=== PATIENT | female | born 1960 | race Caucasian/White ===

== ENCOUNTER 2024-04-23 19:07 | Emergency (ER) | payer MEDICARE, SELFPAY ==
[2024-04-23 19:14] VITALS: BP 145/86; PULSE 87; RESP 20; TEMP 36.4; O2SAT 98; BMI 25.0
--- NOTE | 2024-04-23 19:26 | ED_ITS ---
HPI - Female Genitourinary General Chief complaint: Urogenital-Female Stated complaint: UTI/blood in the urine Time Seen by Provider: 04/23/24 20:09 Source: patient Mode of arrival: ambulatory Limitations: no limitations History of Present Illness ED Provider: Chauncey ALVARADO Narrative: Patient is a 64-year-old female presenting to the emergency department with complaint of urinary urgency, dysuria, hematuria since this morning. Also complains of right flank pain. Denies fevers. Denies nausea or vomiting. MD elicited complaint: dysuria Onset (ago): hour(s) Vaginal discharge: none Vaginal bleeding: none Urinary symptoms: Dysuria, Urgency, Hematuria and Flank Pain Exacerbating factors: urination Associated symptoms: denies other symptoms Related Data Previous Rx's ?Medication ?Instructions ?Recorded cefuroxime axetil 250 mg tablet 250 mg PO BID #14 tabs 04/23/24 phenazopyridine 100 mg tablet 100 mg PO TID PRN pain 6 doses #6 04/23/24 tabs Allergies Allergy/AdvReac Type Severity Reaction Status Date / Time Sulfa (Sulfonamide Allergy Severe ANAPHYLAXIS Unverified 04/23/24 19:15 Antibiotics) [SULFA (SULFONAMIDE ANTIBIOTICS)] sulfite [SULFITE] Allergy Severe ANAPHYLAXIS Unverified 04/23/24 19:15 Review of Systems 2 Review of Systems: As per HPI Yes all other systems are reviewed and are negative Constitutional: Constitutional: Reports as per HPI [facility] Social History Social History Alcohol intake: never Smoked in Last 30 Days: Yes Use of substances other than those prescribed or required for medical reasons: No Any prior treatment program specific to substance use: No Advance Directives: No Advance Directives Information Provided: Yes Patient : No Physical Exam 2 Vital Signs: Vital Signs: Last Vital Signs Temp 97.5 F 04/23/24 19:14 Pulse 87 04/23/24 19:14 Resp 20 04/23/24 19:14 BP 145/86 H 04/23/24 19:14 Pulse Ox 98 04/23/24 19:14 O2 Del Method Room Air 04/23/24 19:14 BMI result Body Mass Index 25.0 Vital signs have been reviewed and appear to be correct. Blood pressure normal. Heart rate normal. Respiratory rate normal. Temperature normal. Oxygen saturation normal. Const: General: cooperative, healthy appearing and no acute distress O rientation/consciousness: oriented to person, oriented to place, oriented to time and patient oriented x3 Limitations: no limitations HEENT: Head: Yes normocephalic and Yes atraumatic Ears: external ears normal General nose exam: Normal external nose present Face and sinus: Yes face symmetric Mouth: oropharynx normal and moist mucous membranes T hroat: Yes uvula midline Eyes: Pupils: Equal, round and reactive pupils present Neck: Neck: Yes normal visual inspection and Yes supple Resp: Effort & Inspection: normal respiratory effort and able to speak in complete sentences Auscultation: clear to auscultation bilaterally Cardio: Rate: regular rate Rhythm: regular rhythm Heart sounds: S1 normal heart sound present and S2 normal heart sound present GI: Palpation (GI): Soft to palpation and nontender Auscultation: n ormoactive bowel sounds : General: Yes no CVA tenderness Back/Spine/Pelvis: Back: no CVA tenderness Skin: General skin exam: elasticity normal and turgor normal Neuro: General: oriented to person, oriented to place, oriented to time, patient oriented x3, moves all extremities, no focal motor deficits and CN's II- XI intact bilaterally Cranial nerves: Yes Equal, round and reactive pupils present Cognition (Neuro): normal cognition Extrem: General: Yes full ROM, Yes no pedal edema and Yes no calf tenderness Psych: Mental Status: mental status grossly normal Affect: normal affect Thought process: Normal thought process present Course Course Course Narrative: This is a rapid medical exam performed by Kelly Grossman NP: Additional HPI, ROS, PE not included below will be deferred to primary provider. Patient is a 64-year-old female presenting to the emergency department with complaint of urinary urgency, dysuria, hematuria since this morning. Also complains of right flank pain. Denies fevers. Plan: labs, UA Medical Decision Making Medical Decision Making MDM Narrative: Patient is a 64-year-old female presenting to the emergency department with complaint of urinary urgency, dysuria, hematuria since this morning. On exam patient is awake, A+Ox3, VS WNL, afebrile, normal neurological exam without focal deficits, physical exam findings as above. Given reported symptoms and physical exam findings, initial differential includes UTI, pyelonephritis, cystitis. Labs notable for leuokocytosis, no anemia, no evidence of SHERYL. Urinalysis notable for 3+ leukocytes, positive nitrites, 3+ blood, >50 WBCs. Will treat for UTI with cefuroxime. Will also send prescription for pyridium. Follow up with PCP. Return precautions discussed. Patient verbalized understanding of and agreement with plan. Differential Diagnosis Differential Diagnoses: The differential diagnosis associated with the presentation includes As per [facility] Lab Data [facility] Lab Attestation statement: I reviewed the patient's lab results. As per [facility] 04/23/24 19:42 04/23/24 19:42 Labs: Lab Results 04/23/24 04/23/24 Range/Units 19:42 19:46 WBC 16.6 H (4.8-10.8) X10*3/uL RBC 4.59 (4.20-5.50) X10*6/uL Hgb 14.2 (12.0-16.0) g/dl Hct 42.1 (37.0-47.0) % MCV 91.7 (80.0-98.0) fL MCH 30.9 (27.0-33.0) pg MCHC 33.7 (31.0-35.0) g/dl RDW 12.9 (11.0-16.0) % Plt Count 220 (160-400) X10*3/uL MPV 11.1 (9.4-12.3) fL Immature Gran % (Auto) 0.4 (0.0-0.4) % Neut % (Auto) 76.4 H (45-73) % Lymph % (Auto) 15.1 L (20-40) % [place] % (Auto) 5.9 (2-11) % Eos % (Auto) 1.8 (0-4) % Baso % (Auto) 0.4 (0-2) % Lymph # (Auto) 2.5 (1.2-4.9) X10*3/uL [place] # (Auto) 1.0 (0.1-1.2) X10*3/uL Eos # (Auto) 0.3 (0.0-0.4) X10*3/uL Baso # (Auto) 0.1 (0.0-0.2) X10*3/uL Abs Immat Gran (auto) 0.06 H (0.00-0.03) X10*3/uL Absolute Neuts (auto) 12.7 H (2.0-8.3) x10*3/uL Absolute Nucleated RBC 0.000 (0.0-0.012) X10*3/uL Nucleated RBC % (auto) 0.0 (0.0-0.2) /100WBC Sodium 143 (135-145) mmol/L Potassium 3.8 (3.3-5.1) mmol/L Chloride 105 (96-108) mmol/L Carbon Dioxide 28 (22-29) mmol/L Anion Gap 14 (12-20) BUN 17 H (9-16) mg/dL Creatinine 0.87 (0.5-1.4) mg/dL Estim Creat Clear Calc 59.5 Estimated GFR > 60 Random Glucose 83 (60-115) mg/dL Calcium 9.1 (8.4-10.2) mg/dL Total Bilirubin 0.3 (0.0-1.0) mg/dL AST 16 (5-31) U/L ALT 22 (0-31) U/L Alkaline Phosphatase 60 (39-117) U/L Total Protein 6.7 (6.5-8.0) g/dL Albumin 4.2 (3.5-5.0) g/dL Urine Color Yellow Urine Appearance Cloudy Urine pH 6.0 (5.0-9.0) Ur Specific Lynn 1.020 (1.005-1.025) Urine Protein 100 (2+) H (Neg-Trace) mg/dL Urine Glucose (UA) Negative (Negative) mg/dL Urine Ketones Negative (Negative) mg/dL Urine Blood Large (3+) H (Negative) Urine Nitrite Positive H (Negative) Ur Leukocyte Esterase Large (3+) H (Negative) Urine RBC >20 H (0-2) /HPF Urine WBC >50 H (0-5) /HPF Ur Squamous Epith Cells 0-2 (0-2) /HPF Urine Bacteria 4+ (None Seen) Hyaline Casts 11-20 (0-2) /LPF External Record Review External record reviewed: Inpatient record, Office record and Outpatient record Prescription Management I considered prescription management with: Pain Medication and Antibiotic Discharge Plan Discharge Clinical Impression: Urinary tract infection Patient Disposition: Home, Self-Care Instructions: Urinary Tract Infection in Women (DC) Additional Instructions: You have been evaluated in the emergency department today for your urinary symptoms. Your evaluation, including urinalysis, suggests that your symptoms are due to urinary tract infection. Please take your prescribed antibiotics for the full course of medication as directed. Please follow-up with your primary care provider within 2 days. Return to the emergency department if you experience fevers 100.4? F or greater, worsening or uncontrolled pain, vomiting, flank pain, or for any other concerning symptoms. Prescriptions: New cefuroxime axetil 250 mg tablet 250 mg PO BID Qty: 14 0RF phenazopyridine 100 mg tablet 100 mg PO TID PRN (Reason: pain) Qty: 6 0RF Print Language: Turkmen
[2024-04-23 19:51] LABS: MANUAL DIFF FLAG NO
[2024-04-23 19:53] LABS: Basophils Absolute Auto 0.1 X10*3/uL (0.0-0.2); Basophils Percent Auto 0.4 % (0-2); Eosinophils Absolute Auto 0.3 X10*3/uL (0.0-0.4); Eosinophils Percent Auto 1.8 % (0-4); Hematocrit 42.1 % (37.0-47.0); Hemoglobin 14.2 g/dl (12.0-16.0); Imm Gran Abs Auto 0.06 X10*3/uL (0.00-0.03); Imm Gran Pct Auto 0.4 % (0.0-0.4); Lymphocytes Absolute Auto 2.5 X10*3/uL (1.2-4.9); Lymphocytes Percent Auto 15.1 % (20-40); Mean Corpuscular HGB Conc 33.7 g/dl (31.0-35.0); Mean Corpuscular Hemoglobin 30.9 pg (27.0-33.0); Mean Corpuscular Volume 91.7 fL (80.0-98.0); Mean Platelet Volume 11.1 fL (9.4-12.3); Monocytes Percent Auto 5.9 % (2-11); Neutrophils Absolute Auto 12.7 x10*3/uL (2.0-8.3); Neutrophils Percent Auto 76.4 % (45-73); Platelet Count 220 X10*3/uL (160-400); Red Blood Count 4.59 X10*6/uL (4.20-5.50); Red Cell Distribution Width 12.9 % (11.0-16.0); White Blood Count 16.6 X10*3/uL (4.8-10.8)
[2024-04-23 19:54] LABS: Appearance Urine Cloudy; Color Urine Yellow; Glucose Urine UA Negative (Negative); Leukocyte Esterase Urine Large (3+) (Negative); Nitrite Urine Positive (Negative); UMIC TRIGGER UACC YES; Urine Blood Large (3+) (Negative); Urine Ketones Negative (Negative); Urine Protein 100 (2+) mg/dL (Neg-Trace)
[2024-04-23 20:01] LABS: Bacteria Urine 4+ (None Seen); RBC Urine >20 /HPF (0-2); Squamous Epithelial Cell Urine 0-2 /HPF (0-2); UACC Culture Trigger YES; WBC Urine >50 /HPF (0-5)
[2024-04-23 20:05] LABS: Alanine Aminotransferase 22 U/L (0-31); Albumin Level 4.2 g/dL (3.5-5.0); Alkaline Phosphatase 60 U/L (39-117); Anion Gap 14 (12-20); Aspartate Amino Transferase 16 U/L (5-31); Bilirubin Total 0.3 mg/dL (0.0-1.0); Blood Urea Nitrogen 17 mg/dL (9-16); Calcium 9.1 mg/dL (8.4-10.2); Carbon Dioxide 28 mmol/L (22-29); Chloride 105 mmol/L (96-108); Creatinine Clr Calc Pharmacy 59.5; Estimated Glomerular Filt Rate > 60; Glucose Random 83 mg/dL (60-115); Potassium 3.8 mmol/L (3.3-5.1); Sodium 143 mmol/L (135-145); Total Protein 6.7 g/dL (6.5-8.0)
[2024-04-23 20:21] VITALS: BP 145/86; PULSE 87; RESP 20; TEMP 36.4; O2SAT 98
--- OUTSIDE RECORDS SUMMARY | 2024-04-23 20:22 | XMS_ITS | Continuity of Care Document ---
Author Organization [facility] Address [address] [place] [address]- Care Team Providers Care Blacksmith Apprentice Name Role Phone Stephen Kay MD Primary Care Physician [place] [facility] [place]): 03/01/23 - 07/11/23 [facility] [address] [place], [place] [address] Attending Physician: Stephen Kay MD Allergies, Adverse Reactions, Alerts Substance Reaction Severity Status Sulfur anaphylaxis Active Sulfite Allergy anaphylaxis Active Immunizations Given and Recorded Vaccine Date Status Refusal Reason SARS-CoV-2 (COVID-19) mRNA-1273 vaccine 02/27/21 R ecorded SARS-CoV-2 (COVID-19) mRNA-1273 vaccine 02/27/21 R ecorded SARS-CoV-2 (COVID-19) mRNA-1273 vaccine 01/28/21 R ecorded SARS-CoV-2 (COVID-19) mRNA-1273 vaccine 01/28/21 R ecorded hepatitis B adult vaccine 1 08/22/17 Recorded tetanus/diphtheria/pertussis, acel(Tdap) 2 12/27/16 Given tetanus/diphtheria/pertussis, acel(Tdap) 03/24/08 Recorded tetanus-diphtheria toxoids (Td) 11/21/14 Recorded 1Result Comment: [08/26/2017] #1[facility] 2Result Comment: [12/27/2016] given without incident.....vs Medications clobetasol 0.05% topical ointment 1 application, Topically, Every Saturday and , apply a thin film use twice weekly, # 60 Gm, 11 Refills, Acute 08/07/25 0:00:00 EST, 08/07/22 11:15:00 EST, Ointment, [facility]/pharmacy #[id number], Partial fill upon patient request if the prescription is for... Start Date: 08/07/22 Stop Date: 08/07/25 Status: Ordered clobetasol 0.05% topical ointment 1 application, Topically, Every Saturday and , apply a thin film twice weekly in morning and evening,, # 60 Gm, 11 Refills, Acute 03/25/27 0:00:00 EDT, 08/07/25 0:00:00 EST, Ointment, [facility]/pharmacy #[id number], Partial fill upon patient request if the... Start Date: 08/07/25 Stop Date: 03/25/27 Status: Ordered Flonase 50 mcg/inh nasal spray 1 sprays, Nares, Both, 2 times a day, # 16 Gm, 0 Refills, Maintenance, 08/09/22 17:35:00 EST, [place], [facility]/pharmacy #[id number], This is NOT a routine chronic medication, 1 sprays Nares, Both 2 times a day, 166.9, cm, 08/09/22 13:41:00 EST, Height, 63,... Start Date: 08/09/22 Status: Ordered ProAir HFA 90 mcg/inh inhalation aerosol with adapter 2, puffs, Inhalation, Every 6 hours, PRN, # 8.5 Gm, Refills 0, Tot. Refills 0, Maintenance, 05/30/23 14:04:00 EST, Aerosol, Route to Pharmacy Electronically, [id number], [facility]/pharmacy #[id number], 168, cm, 05/30/23 11:48:00 EST, Hei... Start Date: 05/30/23 Status: Ordered Synthroid 0.15 mg oral tablet See Instructions, 1 tablet from Saturday to Saturday and two tablets on Saturday, # 102 tablet, 4 Refills, Maintenance, 06/27/23 9:46:00 EST, [facility]/pharmacy #[id number], 168, cm, 06/25/23 10:11:00 EST, Height, 64.3, kg, 03/25/23 11:14:00 EDT, Dry Weight Start Date: 12/14/23 Status: Ordered Tylenol 325 mg oral capsule 2 capsule = 650 mg, By Mouth, Every 4 hours, PRN as needed for pain, # 50 tablet, 0 Refills, Maintenance, 08/11/21 15:51:00 EST, Capsule, [id number], Partial fill upon patient request if the prescription is for a schedule II opioid drug., 167.... Start Date: 08/11/21 Status: Ordered Problem List Condition Confirmation Course Effective Dates Status H ealth Status Informant Dense breasts Confirmed Active Diplopia Confirmed Active Urinary problem Confirmed Active Family history of ovarian cancer Confirmed Active Hx of migraines Confirmed Active Neville's thyroiditis wity mulltiple nodules Confirmed 12/26/16 Active History of uterine fibroid Confirmed Active Personal history of colonic polyps Confirmed 10/22/22 Active Hx of squamous cell carcinoma of skin Confirmed Active High cholesterol Confirmed Active Hypothyroidism Confirmed Active Vulvar lesion Confirmed Active Lichen sclerosus Confirmed Active 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 IFLND Confirmed Active Encounter for well woman exam with abnormal findings Confirmed Active Tobacco use disorder Confirmed Active Social History Social History Type Response Smoking Status 10 or more cigarette s (1/2 pack or more)/day in last 30 days entered on: 06/25/23 Sex Patient Care team information Care Team Personnel Name: Stephen Kay MD Position: S Physician - Primary Care Member Role: PCP Address: Address: [address] [place] [address] Adult & [place] [address]- Care Team Related Persons Name: QUEENIE CARRANZA Address: home [address] [place] [address] Name: TYRONE CARRANZA Address: home [address] [place] [address]
--- OUTSIDE RECORDS SUMMARY | 2024-04-23 20:22 | XMS_ITS | Continuity of Care Document ---
Author Organization [facility] Address [address] [place] [address]- Care Team Providers Care Rib Chopper Name Role Phone Stephen Kay MD Primary Care Physician [phone] [place] [facility] [place](s): 07/06/21 - 09/17/21 [facility] [address] [place] [address] Attending Physician: Lindsay Dueñas MD Admitting Physician: Lindsay Dueñas MD Allergies, Adverse Reactions, Alerts Substance Reaction [...] 08/22/17 Recorded tetanus/diphtheria/pertussis, acel(Tdap) 2 12/27/16 Given 1Result Comment: [08/26/2017] #1[facility] 2Result Comment: [12/27/2016] given without incident.....vs Medications clobetasol 0.05% topical ointment 1 application, Topically, 2 times a day, apply a thin film use twice daily x 1 month, then 3 x weekly for 1 month, then 2x weekly to continue for maintenance., # 60 Gm, 11 Refills, Acute 06/06/22 0:00:00 EST, 09/06/21 10:29:00 EST, Ointment, [facility] Start Date: 09/06/21 Stop Date: 06/06/22 Status: Ordered Engerix-B 20 mcg/mL intramuscular suspension 1 mL = 20 mcg, Intramuscular, Every 30 days, inject Day 0, 1 month, and 6 months, # 1 mL, 2 Refills, Maintenance, 07/16/17 9:33:31, Suspension Start Date: 07/16/17 Status: Ordered ibuprofen 800 mg oral tablet 800 mg, 1, tablet, By Mouth, Every 8 hours, # 40 tablet, Refills 0, Tot. Refills 0, Maintenance, 08/11/21 15:50:00 EST, Route to Pharmacy Electronically, [facility]/pharmacy #[id number], Partial fill upon patientrequest if the prescription is for a schedule II op... Start Date: 08/11/21 Status: Ordered lidocaine 2% topical gel with applicator 5 mL = 0.1 Gm, Topically, Once, Apply 30 mins prior to scheduled vulvar procedure, # 10 mL, 0 Refills, Soft Stop, 09/06/21 10:36:00 EST, Gel, [facility]/pharmacy #[id number], Partial fill upon patient request if the prescription is for a schedule II opioid drug.,... Start Date: 09/06/21 Status: Ordered Lipitor 20 mg oral tablet 1 tablet = 20 mg, By Mouth, Daily, # 30 tablet, 11 Refills, Maintenance, 05/25/21 12:08:00 EST, Tablet, [facility]/pharmacy #[id number], Partial fill upon patient request if the prescription is for a schedule II opioid drug., 168.5, cm, 05/25/21 11:36:00 EST, Height Start Date: 05/25/21 Status: Ordered Multivitamin By Mouth, Daily in AM, 0 Refills, Maintenance, 07/27/21 14:48:00 EST, Partial fill upon patient request if the prescription is for a schedule II opioid drug. Start Date: 07/27/21 Status: Ordered Synthroid 137 mcg (0.137 mg) oral tablet 1 tablet = 137 mcg, By Mouth, Daily, take an 2 tablets on Sundays; NO SUBSTITUTIONS; BRAND NAME MEDICALLY NECESSARY, # 35 each, 7 Refills, Maintenance, 07/06/21 13:28:00 EST, Tablet, [facility]/pharmacy #[id number], duplicate rx. original sent 03/09/21. remaining r... Start Date: 07/06/21 Stop Date: 03/03/22 Status: Ordered Tylenol 325 mg oral capsule 2 capsule = 650 mg, By Mouth, Every 4 hours, PRN as needed for pain, # 50 tablet, 0 Refills, Maintenance, 08/11/21 15:51:00 EST, Capsule, [id number], Partial fill upon patient request if the prescription is for a schedule II opioid drug., 167.... Start Date: 08/11/21 Status: Ordered Vitamin C By Mouth, Daily in AM, 0 Refills, Maintenance, 07/28/15 9:11:18 EST Start Date: 07/28/15 Status: Ordered Problem List Condition Effective Dates Status Health Status Inform ant Dense breasts(Confirmed) Active Urinary problem(Confirmed) Active Family history of ovarian cancer(Confirmed) Active Hx of migraines(Confirmed) Active 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 History of uterine fibroid(Confirmed) Active Hx of squamous cell carcinom a of skin(Confirmed) Active High cholesterol(Confirmed) Active Hypothyroidism(Confirmed) Active Vulvar lesion(Confirmed) Active Lichen sclerosus(Confirmed) Active Vulva cancer(Confirmed) Active Encounter for well woman exa m with abnormal findings(Confirmed) Active Tobacco use disorder(Confirmed) Active Social History Social History Type Response Smoking Status Former smoker, quit more than 30 days ago; Other: Started age 14. Smoked for 42 years. Quit around 05/2021; entered on: 07/27/21 Sex
--- OUTSIDE RECORDS SUMMARY | 2024-04-23 20:22 | XMS_ITS | Continuity of Care Document ---
Author Organization [facility] Address [address] [place] [address]- Care Team Providers Care Pediatric Psychiatrist Name Role Phone Stephen Kay MD Primary Care Physician Encounter [facility] [place] Date(s): 12/26/22 - 01/25/23 [facility] [address] [place] [address]- Allergies, Adverse Reactions, Alerts Substance Reaction Severity [...] 08/22/17 Recorded tetanus/diphtheria/pertussis, acel(Tdap) 2 12/27/16 Given tetanus-diphtheria toxoids (Td) 11/21/14 Recorded 1Result Comment: [08/26/2017] [facility] 2Result Comment: [12/27/2016] given without incident.....vs Medications Clobetasol (Eqv-Temovate) Topically, 2 times a day, 0 Refills, Maintenance, 08/07/22 10:59:00 EST, Partial fill upon patient request if the prescription is for a schedule II opioid drug. Start Date: 08/07/22 Status: Ordered clobetasol 0.05% topical ointment 1 application, Topically, Every Saturday and , apply a thin film use twice weekly, # 60 Gm, 11 Refills, Acute 08/07/25 0:00:00 EST, 08/07/22 11:15:00 EST, Ointment, [facility]/pharmacy #[id number], Partial fill upon patient request if the prescription is for... Start Date: 08/07/22 Stop Date: 08/07/25 Status: Ordered Flonase 50 mcg/inh nasal spray 1 sprays, Nares, Both, 2 times a day, # 16 Gm, 0 Refills, Maintenance, 08/09/22 17:35:00 EST, [place], [id number], This is NOT a routine chronic medication, 1 sprays Nares, Both 2 times a day, 166.9, cm, 08/09/22 13:41:00 EST, Height, 63,... Start Date: 08/09/22 Status: Ordered Synthroid 0.15 mg oral tablet 1 tablet = 150 mcg, By Mouth, Daily, NO SUBSTITUITION BRAND NAME ONLY, # 30 tablet, 6 Refills, Maintenance, 12/25/22 12:32:00 EDT, Tablet, [id number], Partial fill upon patient request if theprescription is for a schedule II opioid drug., 167... Start Date: 12/25/22 Stop Date: 07/23/23 Status: Ordered Tylenol 325 mg oral capsule 2 capsule = 650 mg, By Mouth, Every 4 hours, PRN as needed for pain, # 50 tablet, 0 Refills, Maintenance, 08/11/21 15:51:00 EST, Capsule, [id number], Partial fill upon patient request if [...] 14. Smoked for 42 years. Quit around 05/2021 still smoking 2021 at least 42 pack years; entered on: 11/30/22 Sex Patient Care team information Care Team Personnel Name: Stephen Kay MD Position: [facility] Physician - Primary Care Member Role: PCP Address: Address: [address] [place] [address] Adult & [place] [address]- Care Team Related Persons Name: QUEENIE CARRANZA Address: [address] [place] [address] Name: TYRONE CARRANZA Address: home [address] [place] [address]
--- OUTSIDE RECORDS SUMMARY | 2024-04-23 20:22 | XMS_ITS | Continuity of Care Document ---
Author Organization [facility] Address [address] [place] [address]- Care Team Providers Care Wrapper Sheeter Name Role Phone Stephen Kay MD Primary Care Physician Encounter [facility] [place] Date(s): 05/25/22 - 06/24/22 [facility] [address] [place], [place] [address] Allergies, Adverse Reactions, Alerts Substance Reaction Severity [...] 2Result Comment: [12/27/2016] given without incident.....vs Medications atorvastatin 20 mg oral tablet 1 tablet = 20 mg, By Mouth, Daily, # 30 tablet, 0 Refills, Maintenance, 11/24/21 10:40:00 EDT, Tablet, Partial fill upon patient request if the prescription is for a schedule II opioid drug. Start Date: 11/24/21 Status: Ordered betamethasone topical dipropionate 0.05% lotion See Instructions, Topically 2 times a day, # 20 mL, 0 Refills, Maintenance, 09/23/21 10:33:00 EST, Lotion, [id number], Partial fill upon patient request if the prescription is for a schedule II opioid drug., Topically 2 times a day, 167.64, cm... Start Date: 09/23/21 Status: Ordered Calcium And Vitamin D Combination By Mouth, 0 Refills, Maintenance, 11/24/21 10:41:00 EDT, Partial fill upon patient request if the prescription is for a schedule II opioid drug. Start Date: 11/24/21 Status: Ordered PEG-3350 with Electrolytes (Eqv-NuLYTELY) oral powder for reconstitution See Instructions, as directed, # 1 each, 0 Refills, Maintenance, 11/29/21 15:10:00 EDT, [id number], Ok to sub for any gallon prep, as directed, 167.64, cm, 11/24/21 10:15:00 EDT, Height, 66.6, kg, 10/24/21 15:04:00 EDT, Dry Weight Start Date: 11/29/21 Status: Ordered Synthroid 0.15 mg oral tablet 1 tablet = 150 mcg, By Mouth, Daily, for 30 days, # 30 tablet, 6 Refills, Hard Stop 12/25/22 12:32:00 EDT, 05/29/22 12:32:00 EST, Tablet, [id number], Partial fill upon patient request if the prescription is for a schedule II opioid drug., 167.... Start Date: 05/29/22 Stop Date: 12/25/22 Status: Ordered Synthroid 0.15 mg oral tablet [...] ealth Status Informant Dense breasts Confirmed Active Urinary problem Confirmed Active Family history of ovarian cancer Confirmed Active Hx of migraines Confirmed Active Neville's thyroiditis wity mulltiple nodules Confirmed 12/26/16 Active History of uterine fibroid Confirmed Active Hx of squamous cell carcinoma of [...] 42 years. Quit around 05/2021 still smoking 2021; entered on: 11/24/21 Sex Patient Care team information Care Team Personnel Name: Stephen Kay MD Position: [facility] Primary Care Physician Member Role: PCP Address: Address: [address] [place] [address] Adult & [place] [address]- Care Team Related Persons Name: QUEENIE CARRANZA Address: home [address] [place] [address] Name: TYRONE CARRANZA Address: home [address] [place] [address]
--- OUTSIDE RECORDS SUMMARY | 2024-04-23 20:23 | XMS_ITS | Continuity of Care Document ---
Author Organization [facility] al Address [address] [place] [address]- Care Team Providers Care Housing Property Manager Name Role Phone Stephen Kay MD Primary Care Physician [phone] Encounter [facility] Date(s): 07/23/22 - 07/23/[address] [address]- Discharge Disposition: A-D/C Home Attending Physician: Antonino Deal MD Admitting Physician: Antonino Deal MD Referring Physician: Not on Staff, Referring MD Allergies, Adverse Reactions, Alerts Substance Reaction [...] opioid drug. Start Date: 11/24/21 Status: Ordered Augmentin 875 mg-125 mg oral tablet 1 tablet, By Mouth, Every 12 hours, for 7 days, # 14 tablet, 0 Refills, Acute 07/30/22 14:55:00 EST, 07/23/22 14:55:00 EST, Tablet, [facility]/pharmacy #[id number], Partial fill upon patient request if the prescription is for a schedule II opioid drug., 168, cm, 0... Start Date: 07/23/22 Stop Date: 07/30/22 Status: Ordered betamethasone topical dipropionate 0.05% lotion See Instructions, Topically 2 times a day, # 20 mL, 0 Refills, Maintenance, 09/23/21 10:33:00 EST, Lotion, [facility]/pharmacy #[id number], Partial fill upon patient [...] 12/25/22 12:32:00 EDT, 05/29/22 12:32:00 EST, Tablet, [facility]/pharmacy #[id number], Partial fill upon patient [...] drug., 167.... Start Date: 08/11/21 Status: Ordered Zithromax 250 mg oral tablet 1 tablet = 250 mg, By Mouth, Daily, for 4 days, # 4 tablet, 0 Refills, Acute 07/27/22 14:56:00 EST,07/23/22 14:56:00 EST, Tablet, [id number], Partial fill upon patient request if the prescription is for a schedule II opioid drug., 168, cm, 01... Start Date: 07/23/22 Stop Date: 07/27/22 Status: Ordered Problem List Condition Confirmation Course [...] Confirmed Active Tobacco use disorder Confirmed Active Results Radiology Reports * Exam Date Time Procedure Performing Provider Status 07/23/22 12:11 PM Chest 2 Views Frontal and Lat Marina Galeas; Jim (Verified) Notes: (Chest 2 Views Frontal and Lat) Reason For Exam: Fever;Cough RESULT: Chest 2 Views Frontal and Lat Chest 2 Views Frontal and Lat Hx of Present Illness: pt reprots COugh congestion CP worse with cough. pt rpeort vomitng all symtpoms have been going on for a week; Reason: Cough; Fever; Clinical Question(s): Pneumonia; Special Instructions: This is a protocol film and radiologist should call any findings to the Charge Nurse COMPARISON: 06/15/2021. FINDINGS: LINES AND TUBES: None. LUNGS AND PLEURA: There is a moderate sized ill-defined infiltrate in the right upper lobe consistent with pneumonia appearing since the prior examination. The left lung is clear. No pleural effusion. No pneumothorax. HEART, MEDIASTINUM AND ANGÉLICA: Heart is normal in size. Normal mediastinal and hilar contour. BONES AND SOFT TISSUES: No acute abnormality. IMPRESSION: Right upper lobe pneumonia appearing since the prior examination. A critical result message (Vilas) has been communicated via the MicroTransponder system on 07/23/2022 12:24 PM, Message ID [id number]. WSN: [id number] Ordering Physician: Antonino Deal Dictated By: Paul Staton MD, V Dictated Date/Time: 07/23/22 12:24 p Reviewed By: Paul Staton MD, V Signed By: Paul Staton MD, V Signed Date/Time: 07/23/22 12:24 pm Transcribed By: DELMER Transcribed Date/Time: 07/23/22 12:22 pm Vital Signs Most recent to oldest [Reference Range]: 1 2 3 Height 168 cm (07/23/22 4:22 PM) 168 cm (07/23/22 3:18 PM) 168 cm (07/23/22 3:05 PM) Weight 63.2 kg (07/23/22 4:22 PM) 63.2 kg (07/23/22 3:18 PM) 63.2 kg (07/23/22 11:11 AM) Oxygen Saturation [94-100 %] 99 % (07/23/22 4:22 PM) 95 % (07/23/22 4:20 PM) 94 % (07/23/22 3:18 PM) Pulse Rate [55-90 bpm] 91 bpm *H* (07/23/22 4:22 PM) 95 bpm *H* (07/23/22 4:20 PM) 90 bpm (07/23/22 3:18 PM) Body Mass Index [18.5-24.99 kg/m2] 22.39 kg/m2 (1/9/23 4:22 PM) 22.39 kg/m2 (07/23/22 3:18 PM) Blood Pressure [90-138/55-84 mm Hg] 104/47mm Hg (07/23/22 4:22 PM) 102/64mm Hg (07/23/22 4:20 PM) 92/57mm Hg (07/23/22 3:18 PM) Respiratory Rate [16-30 br/min] 17 br/min (07/23/22 4:22 PM) 21 br/min (07/23/22 4:20 PM) 25 br/min (07/23/22 3:18 PM) Temperature [96.8-100.4 DegF] 98.6 DegF (07/23/22 4:22 PM) 97.8 DegF (07/23/22 3:18 PM) 102.7 DegF *H* (07/23/22 11:11 AM) Mode of Delivery (Oxygen) Room air (07/23/22 4:22 PM) Room air (07/23/22 4:20 PM) Room air (07/23/22 3:18 PM) Blood pressure sites Arm, right (07/23/22 4:22 PM) Arm, right (07/23/22 4:20 PM) Arm, left (07/23/22 3:18 PM) Temperature Route Oral (07/23/22 4:22 PM) Oral (07/23/22 3:18 PM) Oral (07/23/22 11:11 AM) Dry Weight 63.2 kg (07/23/22 4:22 PM) 63.2 kg (07/23/22 3:18 PM) 63.2 kg (07/23/22 11:11 AM) Social History Social History Type Response Smoking Status Former smoker, quit more than 30 days ago; Other: Started age 14. Smoked for 42 years. Quit around 05/2021 still smoking 2021; entered on: 11/24/21 Sex Note * Toyin MCDUFFIE, Antonino Martinez: PERFORM Event Display: Patient Education Leaflets Authored Date: [id number] COVID-19 Pulse Oximeter Discharge Instructions ?? 560 COVID-19 Pulse Oximeter Discharge Instructions ?? Even when infected with COVID-19, many people have mild symptoms and recover on their own. Acetaminophen (Tylenol) or Ibuprofen (Motrin) may be helpful for fevers and pain. However, some people get worse. This is why we have sent you home with a pulse oximeter, a device to measure your oxygen level. In addition to isolating yourself, washing your hands and wearing a mask, you will need to check your oxygen level 3 times each day. To get an accurate level, you will need to do the following: ? Make measurements indoors, at rest, and when you are breathing quietly ? Use the index or middle finger; Do not use your toes or ear lobes ? Remove nail pashto/fake nails from the finger on which measurements are made ? If your hands are cold (just went outside, etc), warm them up before measuring ? Only accept values associated with a strong pulse signal ? Record the most common value over a 30-60 second period If your oxygen saturation reads 92 or lower, please return to the ED or call your primary doctor for urgent attention. In addition, you will be contacted by [facility] to schedule follow up with a provider within 48-72 hours over telehealth. This can be done using your smart phone or computer.?? You also may receive and email or text from the ???Get Well?? Network.?? Once enrolled the ???Get Well?? Network will help track your symptoms and can answer any questions you may have. ? * Toyin MCDUFFIE, Antonino Martinez: PERFORM Event Display: Patient Education Leaflets Authored Date: [id number] Pneumonia (Adult) ?? [id number] Pneumonia (Adult) Pneumonia is an infection inside the lungs. It's in the small air sacs (alveoli). It may be caused by a virus, fungus, or bacteria. Pneumonia caused by bacteria??is treated with an antibiotic medicine. Severe cases may need to be treated in the hospital. Milder cases can be treated at home. Symptoms may include fever, chills, and cough (dry or with phlegm). You may have a headache, muscle weakness, trouble breathing, and pain. These symptoms often get worse in the first 2 days. But they often start to get better in the first week of treatment. Home care Follow these guidelines when caring for yourself at home: ??? Get plenty of rest. Take naps as needed. Don???t let yourself get too tired when you go back to your activities. Go back to activities asdirected by your healthcare provider. ??? Stop smoking. This is the most important step you can take to help treat pneumonia. If you need help to stop, talk with your healthcare provider. ??? Stay away from secondhand smoke. Don???t let anyone smoke in your home or your car. ??? Wash your hands often with soap and clean, running water. Rub for at least 20 seconds. Make sure to clean under your nails and between your fingers. When you can't wash your hands, use hand manager style with at least 60% al cohol. ??? Cover your mouth and nose when coughing or sneezing. Use a tissue or the inside of your elbow. Don't cough or sneeze into your hands. Throw used tissues away. Be sure to wash your hands after coughing, sneezing, or blowing your nose. ??? Limit close contact with other people while you are sick. ??? Stay away from crowds during cold and flu season. Consider wearing a mask in crowds. ???Use pain medicine as directed. You may use acetaminophen or ibuprofen to control fever or pain, unless another medicine was prescribed. If you have chronic liver or kidney disease, talk with your healthcare provider before using these medicines. Also talk with your provider if you???ve had a stomach ulcer or bleeding in your stomach or intestines. Don???t give aspirin to a child younger than age 19 unless directed by the provider. Taking aspirin can put a child at risk for Guerita syndrome. This is a rare but very serious disorder. It most often affects the brain and the liver. ??? Drink plenty of water and other fluids. This can make mucus thinner and easier to cough up. Ask your healthcare provider how much water you should drink. For many people, 6 to 8 glasses (8 ounces each) a day is a good goal. Other fluids include sport drinks, sodas without caffeine, juices, tea, or soup. If you also have heart or kidney disease, check with your provider before you drink extra fluids. ??? Eat asyou are able. You may not feel hungry, so a light diet is fine. Follow the treatment plan as advised by your healthcare provider. ??? Take medicines as instructed by your healthcare provider. If you were given an antibiotic medicine, take it until it's all gone, even if you are feeling better aftera few days. ??? Try to stay away from air pollution. If you live in an area with air pollution, track the Air Quality Index (AQI) reports. Plan your outdoor activities when air quality is OK. ?? Follow-up care Follow up with your healthcare provider in the next 2 to 3 days, or as advised. Following up with your provider as directed is important to make sure you are getting better. You may need more tests if you aren't getting better. Take steps to prevent future infections. Ask your healthcare provider what vaccines are right for you and when to get them. This may include the influenza (flu), COVID-19, and pneumococcal vaccines. ?? Call 911 Call 911if any of these occur: ??? Unable to speak or swallow ??? Lips or skin looks blue, purple, or gipson ??? Feeling dizzy ??? Fainting ??? Unable to be awake or aware ??? Feeling of doom ??? Trouble breathing or wheezing ??? Shortness of breath gets worse or doesn't get better with treatment ???Rapid breathing (more than 25 breaths per minute) ??? Coughing up blood ??? Chest pain gets worse with breathing or doesn't get better with treatment ?? When to get medical advice Call your healthcare provider right away if any of these occur: ??? You don???t get better in the first 2 to 3 days of treatment ??? Fever of??100.4??F (38??C) or higher, or as directed by your healthcare provider ??? Shaking chills ??? Cough with phlegm that doesn't get better, or get worse ??? Shortness of breath with activities ??? Weakness, dizziness, or fainting that gets worse ??? Thirst ordry mouth that gets worse ??? Sinus pain, headache, or a stiff neck ??? Chest pain with breathing or coughing ??? Symptoms that get worse or don't get better ?? Last Reviewed Date: 2021 ?? 2550-2598 [employer]. All rights reserved. This information is not intended as a substitute for professional medical care. Always follow your healthcare professional's instructions. ?? * BHSPowerscribe , CIS S: TRANSCRIBE Paul Staton MD, V: VERIFY Event Display: Result: Authored Date: [id number] Chest 2 Views Frontal and Lat Hx of Present Illness: pt reprots COugh congestion CP worse with cough. pt rpeort vomitng all symtpoms have been going on for a week; Reason: Cough; Fever; Clinical Question(s): Pneumonia; Special Instructions: This is a protocol film and radiologist should call any findings to the Charge Nurse COMPARISON: 06/15/2021. FINDINGS: LINES AND TUBES: None. LUNGS AND PLEURA: There is a moderate sized ill-defined infiltrate in the right upper lobe consistent with pneumonia appearing since the prior examination. The left lung is clear. No pleural effusion. No pneumothorax. HEART, MEDIASTINUM AND ANGÉLICA: Heart is normal in size. Normal mediastinal and hilar contour. BONES AND SOFT TISSUES: No acute abnormality. IMPRESSION: Right upper lobe pneumonia appearing since the prior examination. A critical result message (Vilas) has been communicated via the MicroTransponder system on 07/23/2022 12:24 PM, Message ID [id number]. WSN: [id number] Ordering Physician: Antonino Deal Dictated By: Paul Staton MD, V Dictated Date/Time: 07/23/22 12:24 p Reviewed By: Paul Statno MD, V Signed By: Paul Staton MD, V Signed Date/Time: 07/23/22 12:24 pm Transcribed By: DELMER Transcribed Date/Time: 07/23/22 12:22 pm Patient Care team information Care Team Personnel Name: Eliza MCDUFFIE, Stephen Cao Position: [facility] Primary Care Physician Member Role: PCP Address: Address: [address] [place] [address] Adult & Pediatric Medicine [place], [place] [address] Name: Antonino Deal MD Position: [facility] ED Medicine MD Member Role: Admitting Physician Address: Address: [address] [place] [id number] Name: Peg Monk RN Position: [facility] ED RN W/OE and Tasks Member Role: Patient Care Provider Name: Gerardo Stern Position: [facility] ED OA Member Role: Patient Care Provider Care Team Related Persons Name: QUEENIE CARRANZA Address: home [address] [place] [address] Name: TYRONE CARRANZA Address: home [address] [place] [address]
--- OUTSIDE RECORDS SUMMARY | 2024-04-23 20:23 | XMS_ITS | Continuity of Care Document ---
Author Organization [facility] Address [address] [place] [id number]- Care Team Providers Care Laundry Machine Mechanic Name Role Phone Eliza MCDUFFIE, Stephen Cao Primary Care Physician [phone] Encounter [facility] Date(s): 09/20/23 - 01/18/24 [facility] [address] [place] [id number] Attending Physician: Lindsay Dueñas MD Admitting Physician: Lindsay Dueñas MD Allergies, Adverse Reactions, Alerts Substance Reaction Severity Status rosuvastatin severe myalgia ( not with lipitor ) Active Sulfur anaphylaxis Active Sulfite Allergy anaphylaxis Active Immunizations Given and Recorded Vaccine Date Status Refusal Reason pneumococcal 20-valent conjugate vaccine 07/24/23 Given influenza virus vaccine, inactivated 06/25/23 Angelo rded SARS-CoV-2 (COVID-19) mRNA-1273 vaccine 02/27/21 R ecorded [...] = 20 mg, By Mouth, Daily, # 90 tablet, 3 Refills, Maintenance, 11/26/23 14:09:00 EDT, Tablet, [id number], Partial fill upon patient request if the prescription is for a schedule II opioid drug., 168, cm, 07/24/23 9:56:00 EST, Height,... Start Date: 11/26/23 Status: Ordered clobetasol 0.05% topical ointment See Instructions, APPLY 1 APPLICATION TOPICALLY EVERY SATURDAY AND SATURDAY, APPLY A THIN FILM USE TWICE WEEKLY, # 60 Gm, 11 Refills, Maintenance, 11/15/23 10:53:00 EDT, [id number], 25, APPLY 1 APPLICATION TOPICALLY EVERY SATURDAY AND SATURDAY, APPLY... Start Date: 11/15/23 Status: Ordered Synthroid 0.15 mg oral tablet See Instructions, 1 tablet from Saturday to Saturday and two tablets on Saturday, # 102 tablet, 4 Refills, Maintenance, 01/03/24 16:16:00 EDT, [id number], 168, cm, 01/03/24 16:09:00 EDT, Height, 71, kg, 11/05/23 14:41:00 EDT, Dry Weight Start Date: 01/03/24 Status: Ordered Tylenol 325 mg oral capsule [...] High cholesterol Confirmed Active Hypothyroidism Confirmed Active Lichen sclerosus Confirmed Active 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 IFLND Confirmed Active Vulvar cancer Confirmed Active Encounter for well woman exam with abnormal findings Confirmed Active Tobacco use disorder Confirmed Active Social History Social History Type Response Smoking Status 10 or more cigarette s (1/2 pack or more)/day in last 30 days entered on: 06/25/23 Sex Patient Care team information Care Team Personnel Name: Stephen Kay MD Position: [facility] Physician - Primary Care Member Role: PCP Address: Address: [address] [place] [address] Adult & [place] [address]- Care Team Related Persons Name: QUEENIE CARRANZA Address: home [address] [place] [address] Name: TYRONE CARRANZA Address: home [address] [place] [address]
--- OUTSIDE RECORDS SUMMARY | 2024-04-23 20:23 | XMS_ITS | Continuity of Care Document ---
Author Organization [facility] Address [address] [place] [address]- Care Team Providers Care Electronic Publications Specialist Name Role Phone Stephen Kay MD Primary Care Physician Encounter [facility] Date(s): 10/15/22 - 11/14/22 [facility] [address] [place] [address] Allergies, Adverse Reactions, Alerts Substance Reaction Severity [...] 08/07/25 0:00:00 EST, 08/07/22 11:15:00 EST, Ointment, [id number], Partial fill upon patient request if the prescription is for... Start Date: 08/07/22 Stop Date: 08/07/25 Status: Ordered Flonase 50 mcg/inh nasal spray 1 sprays, Nares, Both, 2 times a day, # 16 Gm, 0 Refills, Maintenance, 08/09/22 17:35:00 EST, [place], [id number], This is NOT a routine [...] Team Personnel Name: Stephen Kay MD Position: [facility] Primary Care Physician Member Role: PCP Address: Address: [address] [place] [address] Adult & [place] [address]- Care Team Related Persons Name: QUEENIE CARRANZA Address: home [address] [place] [address] Name: TYRONE CARRANZA Address: home [address] [place] [address]
--- OUTSIDE RECORDS SUMMARY | 2024-04-23 20:23 | XMS_ITS | Continuity of Care Document ---
Author Organization [facility] Address [address] [place] [id number]- Care Team Providers Care Business Economist Name Role Phone Stephen Kay MD Primary Care Physician [phone] Encounter [facility] Date(s): 01/17/24 - 01/17/[address] [address]- Encounter Diagnosis Chest pain(Final) - 01/17/24 Discharge Disposition: A-D/C AMA Attending Physician: Gerardo Martinez MD Admitting Physician: Gerardo Martinez MD Referring Physician: Not on Staff, Referring [...] 3 Refills, Maintenance, 11/26/23 14:09:00 EDT, Tablet, [facility]/pharmacy #[id number], Partial fill upon patient request if the prescription is for a schedule II opioid drug., 168, cm, 07/24/23 9:56:00 EST, Height,... Start Date: 11/26/23 Status: Ordered clobetasol 0.05% topical ointment See Instructions, APPLY 1 APPLICATION TOPICALLY EVERY SATURDAY AND SATURDAY, APPLY A THIN FILM USE TWICE WEEKLY, # 60 Gm, 11 Refills, Maintenance, 11/15/23 10:53:00 EDT, [facility] ST[id number], 25, APPLY 1 APPLICATION TOPICALLY EVERY SATURDAY [...] 0 Refills, Maintenance, 08/11/21 15:51:00 EST, Capsule, [facility]/pharmacy #[id number], Partial fill upon patient request [...] Confirmed Active Tobacco use disorder Confirmed Active Vital Signs Most recent to oldest [Reference Range]: 1 2 3 Height 168 cm (01/17/24 12:44 PM) 168 cm (01/17/24 12:14 PM) Weight 73.0 kg (01/17/24 12:44 PM) 73.0 kg (01/17/24 12:14 PM) Oxygen Saturation [94-100 %] 97 % (01/17/24 3:20 PM) 98 % (01/17/24 2:13 PM) 98 % (01/17/24 12:14 PM) Pulse Rate [55-90 bpm] 78 bpm (01/17/24 3:20 PM) 81 bpm (01/17/24 2:13 PM) 89 bpm (01/17/24 12:14 PM) Body Mass Index [18.5-24.99 kg/m2] 25.86 kg/m2 *H* (01/17/24 12:14 PM) Blood Pressure [90-138/55-84 mm Hg] 119/78mm Hg (01/17/24 3:20 PM) 110/75mm Hg (01/17/24 2:13 PM) 125/83mm Hg (01/17/24 12:14 PM) Respiratory Rate [16-30 br/min] 18 br/min (01/17/24 3:20 PM) 18 br/min (01/17/24 2:13 PM) 19 br/min (01/17/24 12:14 PM) Temperature [96.8-100.4 DegF] 98.1 DegF (01/17/24 2:13 PM) 97.9 DegF (01/17/24 12:14 PM) Mode of Delivery (Oxygen) Room air (01/17/24 3:20 PM) Room air (01/17/24 2:13 PM) Room air (01/17/24 12:14 PM) Blood pressure sites Arm, left (01/17/24 3:20 PM) Arm, left (01/17/24 2:13 PM) Arm, right (01/17/24 12:14 PM) Temperature Route Oral (7/5/24 2:13 PM) Oral (01/17/24 12:14 PM) Dry Weight 73.0 kg (01/17/24 12:44 PM) 73.0 kg (01/17/24 12:14 PM) Weight Obtained Via Standing scale (01/17/24 12:14 PM) Dry Weight Obtained Via Standing scale (01/17/24 12:14 PM) Social History Social History Type Response Smoking Status 10 or more cigarette s (1/2 pack or more)/day in last 30 days entered on: 06/25/23 Sex EKG study * Event Display: ECG 12-Lead Authored Date: Please click on pdf link to open report * Event Display: ECG 12-Lead Authored Date: Ventricular Rate: 87 BPM Atrial Rate: 87 BPM P-R Interval: 138 ms QRS Duration: 72 ms Q-T Interval: 368 ms QTC Calculation(Bazett): 442 ms P [place]: 65 degrees R Newport: 68 degrees T Newport: 47 degrees Sinus rhythm with Premature atrial complexes Nonspecific ST abnormality Abnormal ECG When compared with ECG of 22-NOV-2022 14:50, Premature atrial complexes are now Present Confirmed by TULIO HARDEN ([id number]) on 01/17/2024 12:24:09 PM [place]: TULIO HARDEN Patient Care team information Care Team Personnel Name: Stephen Kay MD Position: S Physician - Primary Care Member Role: PCP Address: Address: [address] [place] [address] Adult & Pediatric Medicine [place], [place] [address] Care Team Related Persons Name: QUEENIE CARRANZA Address: home [address] [place] [address] Name: TYRONE CARRANZA Address: home [address] [place] [address]
--- OUTSIDE RECORDS SUMMARY | 2024-04-23 20:23 | XMS_ITS | Continuity of Care Document ---
Author Organization [facility] Address [address] [place] [address]- Care Team Providers Care Administrative Project Coordinator Name Role Phone Eliza MCDUFFIE, Stephen Cao Primary Care Physician Encounter [facility] Date(s): 12/19/23 - 01/18/24 [facility] [address] [place] [id number] Allergies, Adverse Reactions, Alerts Substance Reaction Severity [...] Gm, 11 Refills, Maintenance, 11/15/23 10:53:00 EDT, [facility] [address], 25, APPLY 1 APPLICATION TOPICALLY EVERY SATURDAY [...] Team Personnel Name: Stephen Kay MD Position: [facility] Physician - Primary Care Member Role: PCP Address: Address: [address] [place] [address] Adult [place] [address]- Care Team Related Persons Name: QUEENIE CARRANZA Address: home [address] [place] [address] Name: TYRONE CARRANZA Address: home [address] [place] [address]
--- OUTSIDE RECORDS SUMMARY | 2024-04-23 20:23 | XMS_ITS | Continuity of Care Document ---
Author Organization [facility] Pulmonary M edicine Address [address] [place] [address]- Care Team Providers Care Security Developer Name Role Phone Stephen Kay MD Primary Care Physician [phone] [place] [facility] [place]/05/22 [facility] Pulmonary Medicine [address] [place] [id number] [[email or web address]] Attending Physician: Admtr, Luz Elena Admitting Physician: Admtr, Ar8 Referring Physician: Admtr, Ar8 Allergies, Adverse Reactions, Alerts Substance Reaction Severity [...] Weight Start Date: 11/29/21 Status: Ordered Synthroid 137 mcg (0.137 mg) oral tablet 1 tablet = 137 mcg, By Mouth, Daily, take an 2 tablets on Saturday and Sundays; NO SUBSTITUTIONS; BRAND NAME MEDICALLY NECESSARY, # 40 tablet, 7 Refills, Maintenance, 03/20/22 10:37:00 EDT, Tablet, [id number], duplicate rx. original sent 03/09... Start Date: 03/20/22 Stop Date: 11/15/22 Status: Ordered Tylenol 325 mg oral capsule [...] on: 11/24/21 Sex Patient Care team information Personnel Name: Stephen Kay MD Address: Address: [address] [place] [address] Adult & Pediatric Medicine [address]
--- OUTSIDE RECORDS SUMMARY | 2024-04-23 20:23 | XMS_ITS | Continuity of Care Document ---
Author Organization [facility] Endocrinolo gy and Diabetes Address [address] [place] [address]- Care Team Providers Care Construction Estimator Name Role Phone Stephen Kay MD Primary Care Physician [place] [facility] [place]/22 [facility] Endocrinology and Diabetes [address] [place] [id number] Attending Physician: Admtr, Ar8 Admitting Physician: Admtr, Ar8 Referring Physician: Admtr, [...] 0 Refills, Maintenance, 09/23/21 10:33:00 EST, Lotion, [facility]/pharmacy #[id number], Partial fill upon patient request if [...] each, 0 Refills, Maintenance, 11/29/21 15:10:00 EDT, [facility]/pharmacy #[id number], Ok to sub for any gallon prep, as directed, 167.64, cm, 11/24/21 10:15:00 EDT, Height, 66.6, kg, 10/24/21 15:04:00 EDT, Dry Weight Start Date: 11/29/21 Status: Ordered Synthroid 0.15 mg oral tablet 1 tablet = 150 mcg, By Mouth, Daily, for 30 days, # 30 tablet, 6 Refills, Hard Stop 12/25/22 12:32:00 EDT, 05/29/22 12:32:00 EST, Tablet, [facility]/pharmacy #[id number], Partial fill upon patient request if the prescription is for a schedule II opioid drug., 167.... Start Date: 05/29/22 Stop Date: 12/25/22 Status: Ordered Synthroid 0.15 mg oral tablet 1 tablet = 150 mcg, By Mouth, Daily, NO SUBSTITUITION BRAND NAME ONLY, # 30 tablet, 6 Refills, Maintenance, 12/25/22 12:32:00 EDT, Tablet, [facility]/pharmacy #[id number], Partial fill upon patient request if theprescription is for a schedule II opioid drug., 167... Start Date: 12/25/22 Stop Date: 07/23/23 Status: Ordered Tylenol 325 mg oral capsule 2 capsule = 650 mg, By Mouth, Every 4 hours, PRN as needed for pain, # 50 tablet, 0 Refills, Maintenance, 08/11/21 15:51:00 EST, Capsule, [id number], Partial fill upon patient request if the [...] Team Personnel Name: Stephen Kay MD Position: [facility] Primary Care Physician Member Role: PCP Address: Address: [address] [place] [address] Adult [place] [address]- Care Team Related Persons Name: QUEENIE CARRANZA Address: home [address] [place] [address] Name: TYRONE CARRANZA Address: home [address] [place] [address]
--- OUTSIDE RECORDS SUMMARY | 2024-04-23 20:23 | XMS_ITS | Continuity of Care Document ---
Author Organization [facility] Adult and Pedi Address [address] [place] [address]- Care Team Providers Care Dye Range Feeder Name Role Phone Eliza MCDUFFIE, Stephen Cao Primary Care Physician [facility]counter [facility] Date(s): 11/26/23 - 12/26/23 [facility] Adult and Pedi [address] [place], [place] [address] Allergies, Adverse Reactions, Alerts Substance Reaction Severity Status rosuvastatin severe myalgia ( not with lipitor ) Active Sulfite Allergy anaphylaxis Active Sulfur anaphylaxis Active Immunizations Given and Recorded Vaccine [...] 2Result Comment: [12/27/2016] given without incident.....vs Medications Albuterol (Eqv-ProAir HFA) 90 mcg/inh inhalation aerosol See Instructions, INHALE 2 PUFFS INTO LUNGS EVERY 6 HOURS NEEDED FOR WHEEZING/SHORTNESS OF BREATH, # 8.5 each, 0 Refills, Maintenance, 08/22/23 18:12:00 EST, [id number], 25, INHALE 2 PUFFS INTO LUNGS EVERY 6 HOURS NEEDED FOR WHEEZING/SHORTN... Start Date: 08/22/23 Status: Ordered atorvastatin 20 mg oral tablet 1 tablet = 20 mg, By Mouth, Daily, # 90 tablet, 3 Refills, Maintenance, 11/26/23 14:09:00 EDT, Tablet, [facility]/pharmacy #[id number], Partial fill upon patient request if the prescription is for a schedule II opioid drug., 168, cm, 07/24/23 9:56:00 EST, Height,... Start Date: 11/26/23 Status: Ordered clobetasol 0.05% topical ointment See Instructions, APPLY 1 APPLICATION TOPICALLY EVERY SATURDAY AND SATURDAY, APPLY A THIN FILM USE TWICE WEEKLY, # 60 Gm, 11 Refills, Maintenance, 11/15/23 10:53:00 EDT, [facility], 25, APPLY 1 APPLICATION TOPICALLY EVERY SATURDAY AND SATURDAY, APPLY... Start Date: 11/15/23 Status: Ordered Flonase 50 mcg/inh nasal spray 1 sprays, Nares, Both, 2 times a day, # 16 Gm, 0 Refills, Maintenance, 08/09/22 17:35:00 EST, [place], [facility]/pharmacy #[id number], This is NOT a routine chronic medication, 1 sprays Nares, Both 2 times a day, 166.9, cm, 08/09/22 13:41:00 EST, Height, 63,... Start Date: 08/09/22 Status: Ordered ProAir HFA 90 mcg/inh inhalation aerosol with adapter 2, puffs, Inhalation, Every 6 hours, PRN, # 8.5 Gm, Refills 0, Tot. Refills 0, Maintenance, 05/30/23 14:04:00 EST, Aerosol, Route to Pharmacy Electronically, [id number], [facility]/pharmacy #[id number], 168, cm, 05/30/23 11:48:00 EST, Hei... Start Date: 05/30/23 Status: Ordered Synthroid 0.15 mg oral tablet See Instructions, 1 tablet from Saturday to Saturday and two tablets on Saturday, # 102 tablet, 4 Refills, Maintenance, 06/27/23 9:46:00 EST, [facility]/pharmacy #[id number], 168, cm, 06/25/23 10:11:00 EST, Height, 64.3, kg, 03/25/23 11:14:00 EDT, Dry Weight Start Date: 06/27/23 Status: Ordered Tylenol 325 mg oral capsule [...] Primary Care Member Role: PCP Address: Address: [address] [place] [address] Adult & [place] [address]- Care Team Related Persons Name: QUEENIE CARRANZA Address: home [address] [place] [address] Name: TYRONE CARRANZA Address: home [address] [place] [address]
--- OUTSIDE RECORDS SUMMARY | 2024-04-23 20:23 | XMS_ITS | Continuity of Care Document ---
Author Organization [facility] Endocrinolo gy and Diabetes Address [address] [place] [address]- Care Team Providers Care Lumber Carrier Name Role Phone Eliza MCDUFFIE, Stephen Cao Primary Care Physician [phone] Encounter [facility] Date(s): 07/06/21 - 08/05/21 [facility] Endocrinology and Diabetes [address] [place] [id number] Allergies, Adverse Reactions, Alerts Substance Reaction Severity Status Sulfur anaphylaxis Active Sulfite Allergy anaphylaxis Active Immunizations Given and Recorded Vaccine Date Status Refusal Reason SARS-CoV-2 (COVID-19) mRNA-1273 vaccine 02/27/21 R ecorded SARS-CoV-2 (COVID-19) mRNA-1273 vaccine 01/28/21 R ecorded hepatitis B adult vaccine 1 08/22/17 Recorded tetanus/diphtheria/pertussis, acel(Tdap) 2 12/27/16 Given 1Result Comment: [08/26/2017] [facility] 2Result Comment: [12/27/2016] given without incident.....vs Medications aspirin 81 mg oral tablet 1 tablet = 81 mg, By Mouth, Daily, # 30 tablet, 0 Refills, Maintenance, 12/31/16 16:39:58, Tablet Start Date: 12/31/16 Status: Ordered Azithromycin 5 Day Dose Pack 250 mg oral tablet 1 pack/packet, By Mouth, Once, as directed on package labeling, # 6 tablet, 0 Refills, Soft Stop, 06/15/21 18:31:00 EST, Tablet, [id number], Partial fill upon patient request if the prescription is for a schedule II opioid drug., 168.5, cm, 12... Start Date: 06/15/21 Status: Ordered Engerix-B 20 mcg/mL intramuscular suspension 1 mL = 20 mcg, Intramuscular, Every 30 days, inject Day 0, 1 month, and 6 months, # 1 mL, 2 Refills, Maintenance, 07/16/17 9:33:31, Suspension Start Date: 07/16/17 Status: Ordered Lipitor 20 mg oral tablet 1 tablet = 20 mg, By Mouth, Daily, # 30 tablet, 11 Refills, Maintenance, 05/25/21 12:08:00 EST, Tablet, [facility]/pharmacy #[id number], Partial fill upon patient request if the prescription is for a schedule II opioid drug., 168.5, cm, 05/25/21 11:36:00 EST, Height Start Date: 05/25/21 Status: Ordered Multivitamin Daily, 0 Refills, Maintenance, 07/27/21 14:48:00 EST, Partial fill upon patient request if the prescription is for a schedule II opioid drug. Start Date: 07/27/21 Status: Ordered Synthroid 137 mcg (0.137 mg) oral tablet 1 tablet = 137 mcg, By Mouth, Daily, take an 2 tablets on Sundays; NO SUBSTITUTIONS; BRAND NAME MEDICALLY NECESSARY, # 35 each, 7 Refills, Maintenance, 07/06/21 13:28:00 EST, Tablet, [facility]/pharmacy #[id number], duplicate rx. original sent 03/09/21. remaining r... Start Date: 07/06/21 Stop Date: 03/03/22 Status: Ordered Vitamin C By Mouth, Daily, 0 Refills, Maintenance, 07/28/15 9:11:18 Start Date: 07/28/15 Status: Ordered Problem List Condition Effective Dates Status Health Status Inform ant Dense breasts(Confirmed) Active Urinary problem(Confirmed) Active Family history of ovarian cancer(Confirmed) Active Hx of migraines(Confirmed) Active 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 History of uterine fibroid(Confirmed) Active Hx of squamous cell carcinom a of skin(Confirmed) Active High cholesterol(Confirmed) Active Hypothyroidism(Confirmed) Active Vulvar lesion(Confirmed) Active Encounter for well woman exa m with abnormal findings(Confirmed) Active Tobacco use disorder(Confirmed) Active Social History Social History Type Response Smoking Status Former smoker, quit more than 30 days ago; Other: Started age 14. Smoked for 42 years. Quit around 05/2021; entered on: 07/27/21 Sex
--- OUTSIDE RECORDS SUMMARY | 2024-04-23 20:23 | XMS_ITS | Continuity of Care Document ---
Author Organization [facility] ter Address [address] [place] [address]- Care Team Providers Care Dive Supervisor Name Role Phone Stephen Kay MD Primary Care Physician [phone] [place] [facility] [place] Date(s): 09/22/21 - 10/22/[address] [address]- Attending Physician: Not on Staff, Attending MD Admitting Physician: Not on Staff, Admitting MD Referring Physician: Not on Staff, Referring [...] 2Result Comment: [12/27/2016] given without incident.....vs Medications betamethasone topical dipropionate 0.05% lotion See Instructions, Topically 2 times a day, # 20 mL, 0 Refills, Maintenance, 09/23/21 10:33:00 EST, Lotion, [id number], Partial fill upon patient request if the prescription is for a schedule II opioid drug., Topically 2 times a day, 167.64, cm... Start Date: 09/23/21 Status: Ordered ibuprofen 800 mg oral tablet 800 mg, 1, tablet, By Mouth, Every 8 hours, # 40 tablet, Refills 0, Tot. Refills 0, Maintenance, 08/11/21 15:50:00 EST, [id number] fill upon patientrequest if the prescription is for a schedule II op... Start Date: 08/11/21 Status: Ordered lidocaine 2% topical gel with applicator 5 mL = 0.1 Gm, Topically, Once, Apply 30 mins prior to scheduled vulvar procedure, # 10 mL, 0 Refills, Soft Stop, 09/06/21 10:36:00 EST, Gel, [facility]/pharmacy #[id number], Partial fill upon patient request if the prescription is for a schedule II opioid drug.,... Start Date: 09/06/21 Status: Ordered Lipitor 20 mg oral tablet 1 tablet = 20 mg, By Mouth, Daily, # 30 tablet, 11 Refills, Maintenance, 05/25/21 12:08:00 EST, Tablet, [facility]/pharmacy #2339, Partial fill upon patient request if the prescription is for a schedule II opioid drug., 168.5, cm, 05/25/21 11:36:00 EST, Height Start Date: 05/25/21 Status: Ordered Synthroid 137 mcg (0.137 mg) oral tablet 1 tablet = 137 mcg, By Mouth, Daily, take an 2 tablets on Sundays; NO SUBSTITUTIONS; BRAND NAME MEDICALLY NECESSARY, # 35 each, 7 Refills, Maintenance, 07/06/21 13:28:00 EST, Tablet, [id number]. original sent 03/09/21. remaining r... 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 Smoked for 42 years. Quit around 05/2021; entered on: 07/27/21 Sex
--- OUTSIDE RECORDS SUMMARY | 2024-04-23 20:23 | XMS_ITS | Continuity of Care Document ---
Author Organization [facility] Endocrinolo gy and Diabetes Address [address] [place] [address]- Care Team Providers Care Clerk Cashier Name Role Phone Eliza MCDUFFIE, Stephen Cao Primary Care Physician [facility]counter [facility] Date(s): 06/26/23 - 07/26/23 [facility] Endocrinology and Diabetes [address] [place] [address] Allergies, Adverse Reactions, Alerts Substance Reaction Severity [...] 08/07/25 0:00:00 EST, 08/07/22 11:15:00 EST, Ointment, [facility]/pharmacy #[id number], Partial fill upon patient request if the prescription is for... Start Date: 08/07/22 Stop Date: 08/07/25 Status: Ordered clobetasol 0.05% topical ointment 1 application, Topically, Every Saturday and , apply a thin film twice weekly in morning and evening,, # 60 Gm, 11 Refills, Acute 03/25/27 0:00:00 EDT, 08/07/25 0:00:00 EST, Ointment, [facility]/pharmacy #[id number], Partial fill upon patient request if the... Start Date: 08/07/25 Stop Date: 03/25/27 Status: Ordered Flonase 50 mcg/inh nasal spray 1 sprays, Nares, Both, 2 times a day, # 16 Gm, 0 Refills, Maintenance, 08/09/22 17:35:00 EST, [place], [facility]/pharmacy #2339, This is NOT a routine chronic medication, 1 sprays Nares, Both 2 times a day, 166.9, cm, 08/09/22 13:41:00 EST, Height, 63,... Start Date: 08/09/22 Status: Ordered ProAir HFA 90 mcg/inh inhalation aerosol with adapter 2, puffs, Inhalation, Every 6 hours, PRN, # 8.5 Gm, Refills 0, Tot. Refills 0, Maintenance, 05/30/23 14:04:00 EST, Aerosol, Route to Pharmacy Electronically, [id number], [facility]/pharmacy #[id number], 168, cm, 05/30/23 11:48:00 EST, Hei... Start Date: 05/30/23 Status: Ordered rosuvastatin 5 mg oral tablet 1 tablet = 5 mg, By Mouth, Daily, # 90 tablet, 3 Refills, Maintenance, 07/24/23 10:18:00 EST, Tablet, [facility]/pharmacy #2339, Partial fill upon patient request if the prescription is for a schedule II opioid drug., 168, cm, 07/24/23 9:56:00 EST, Height, 6... Start Date: 07/24/23 Status: Ordered Synthroid 0.15 mg oral tablet See Instructions, 1 tablet from Saturday to Saturday and two tablets on Saturday, # 102 tablet, 4 Refills, Maintenance, 06/27/23 9:46:00 EST, [id number], 168, cm, 06/25/23 10:11:00 EST, Height, [...] Team Personnel Name: Stephen Kay MD Position: [facility] Physician - Primary Care Member Role: PCP Address: Address: [address] [place] [address] Adult [place] [address]- Care Team Related Persons Name: QUEENIE CARRANZA Address: home [address] [place] [address] Name: TYRONE CARRANZA Address: home [address] [place] [address]
--- OUTSIDE RECORDS SUMMARY | 2024-04-23 20:23 | XMS_ITS | Continuity of Care Document ---
Author Organization [facility] Endocrinolo gy and Diabetes Address [address] [place] [address]- Care Team Providers Care Needle Loom Operator Name Role Phone Eliza MCDUFFIE, Stephen Cao Primary Care Physician [facility] Date(s): 01/23/23 - 02/22/23 [facility] Endocrinology and Diabetes [address] [place] [id number] Allergies, Adverse Reactions, Alerts Substance Reaction Severity [...] 08/07/25 0:00:00 EST, 08/07/22 11:15:00 EST, Ointment, [facility]/pharmacy #[id number], Partial fill upon patient request if the prescription is for... Start Date: 08/07/22 Stop Date: 08/07/25 Status: Ordered Flonase 50 mcg/inh nasal spray 1 sprays, Nares, Both, 2 times a day, # 16 Gm, 0 Refills, Maintenance, 08/09/22 17:35:00 EST, [place], [facility], This is NOT a routine [...] Team Personnel Name: Stephen Kay MD Position: [facility] Physician - Primary Care Member Role: PCP Address: Address: [address] [place] [address] Adult & [place] [address]- Care Team Related Persons Name: QUEENIE CARRANZA Address: home [address] [place] [address] Name: TYRONE CARRANZA Address: home [address] [place] [address]
--- OUTSIDE RECORDS SUMMARY | 2024-04-23 20:23 | XMS_ITS | Continuity of Care Document ---
Author Organization [facility] Adult and Pedi Address [address] [place] [address]- Care Team Providers Care Cigar Making Supervisor Name Role Phone Stephen Kay MD Primary Care Physician [phone] [place] [facility] [place] 11/28/[place] - 12/28/21 [facility] Ped[facility] [address] [place], [place] [address] Allergies, Adverse Reactions, Alerts Substance [...] 7 Refills, Maintenance, 07/06/21 13:28:00 EST, Tablet, [facility]/pharmacy #[id number], duplicate rx. original sent 03/09/21. [...] Date: 08/11/21 Status: Ordered Problem List Condition Effective Dates [...]
--- OUTSIDE RECORDS SUMMARY | 2024-04-23 20:23 | XMS_ITS | Continuity of Care Document ---
Author Organization [facility] Endocrinolo gy and Diabetes Address [address] [place] [address]- Care Team Providers Care Specialty Molder Name Role Phone Eliza MCDUFFIE, Stephen Cao Primary Care Physician [facility] Date[facility]s): 10/18/23 - 11/17/23 [facility] Endocrinology and Diabetes [address] [place] [id number] Allergies, Adverse Reactions, Alerts Substance Reaction [...] each, 0 Refills, Maintenance, 08/22/23 18:12:00 EST, [facility], 25, INHALE 2 PUFFS INTO LUNGS EVERY 6 HOURS NEEDED FOR WHEEZING/SHORTN... Start Date: 08/22/23 Status: Ordered atorvastatin 20 mg oral tablet 1 tablet = 20 mg, By Mouth, Daily, # 90 tablet, 3 Refills, Maintenance, 08/22/23 18:12:00 EST, Tablet, [facility]/pharmacy #2339, Partial fill upon patient request if the prescription is for a schedule II opioid drug., 168, cm, 07/24/23 9:56:00 EST, Height,... Start Date: 08/22/23 Status: Ordered clobetasol 0.05% topical ointment See Instructions, APPLY 1 APPLICATION TOPICALLY EVERY SATURDAY AND SATURDAY, APPLY A THIN FILM USE TWICE WEEKLY, # 60 Gm, 11 Refills, Maintenance, 11/15/23 10:53:00 EDT, [facility], 25, APPLY 1 APPLICATION TOPICALLY EVERY SATURDAY AND SATURDAY, APPLY... Start Date: 11/15/23 Status: Ordered Flonase 50 mcg/inh nasal spray 1 sprays, Nares, Both, 2 times a day, # 16 Gm, 0 Refills, Maintenance, 08/09/22 17:35:00 EST, [place], [facility]/pharmacy #2339, This is NOT a routine chronic medication, 1 sprays Nares, Both 2 times a day, 166.9, cm, 08/09/22 13:41:00 EST, Height, 63,... Start Date: 08/09/22 Status: Ordered ProAir HFA 90 mcg/inh inhalation aerosol with adapter 2, puffs, Inhalation, Every 6 hours, PRN, # 8.5 Gm, Refills 0, Tot. Refills 0, Maintenance, 05/30/23 14:04:00 EST, Aerosol, Route to Pharmacy Electronically, [id number], [facility]/pharmacy #2339, 168, cm, 05/30/23 11:48:00 EST, Hei... [...] Team Personnel Name: Stephen Kay MD Position: [facility] Physician - Primary Care Member Role: PCP Address: Address: [address] [place] [address] Adult & [place] [address]- Care Team Related Persons Name: QUEENIE CARRANZA Address: home [address] [place] [address] Name: TYRONE CARRANZA Address: home [address] [place] [address]
--- OUTSIDE RECORDS SUMMARY | 2024-04-23 20:23 | XMS_ITS | Continuity of Care Document ---
Author Organization [facility] ter Address [address] [place] [address]- Care Team Providers Care Can Sterilizer Name Role Phone Stephen Kay MD Primary Care Physician [phone] Encounter [facility] Date(s): 10/11/22 - 10/11/[address] [address]- Discharge Disposition: A-D/C Home Attending Physician: Denice Hernandez MD Admitting Physician: Denice Hernandez MD Referring Physician: Denice Hernandez MD Allergies, Adverse Reactions, Alerts Substance Reaction [...] 08/07/25 0:00:00 EST, 08/07/22 11:15:00 EST, Ointment, [facility]/pharmacy #[id number], Partial fill upon patient request if the prescription is for... Start Date: 08/07/22 Stop Date: 08/07/25 Status: Ordered Flonase 50 mcg/inh nasal spray 1 sprays, Nares, Both, 2 times a day, # 16 Gm, 0 Refills, Maintenance, 08/09/22 17:35:00 EST, [place], [facility]/pharmacy #[id number], This is NOT a routine chronic medication, 1 sprays Nares, Both 2 times a day, 166.9, cm, 08/09/22 13:41:00 EST, Height, 63,... Start Date: 08/09/22 Status: Ordered Synthroid 0.15 mg oral tablet 1 tablet = 150 mcg, By Mouth, Daily, for 30 days, # 30 tablet, 6 Refills, Hard Stop 12/25/22 12:32:00 EDT, 05/29/22 12:32:00 EST, Tablet, [facility]/pharmacy #[id number], Partial fill upon patient request if the prescription is for a schedule II opioid drug., 167.... Start Date: 05/29/22 Stop Date: 12/25/22 Status: Ordered Synthroid 0.15 mg oral tablet 1 tablet = 150 mcg, By Mouth, Daily, NO SUBSTITUITION BRAND NAME ONLY, # 30 tablet, 6 Refills, Maintenance, 12/25/22 12:32:00 EDT, Tablet, [facility]/pharmacy #[id number], Partial fill upon patient request if theprescription is for a schedule II opioid drug., 167... Start Date: 12/25/22 Stop Date: 07/23/23 Status: Ordered Tylenol 325 mg oral capsule 2 capsule = 650 mg, By Mouth, Every 4 hours, PRN as needed for pain, # 50 tablet, 0 Refills, Maintenance, 08/11/21 15:51:00 EST, Capsule, [facility]/pharmacy #[id number], Partial fill upon patient request [...] Confirmed Active Tobacco use disorder Confirmed Active Procedures Procedure Date Related Diagnosis Body Site Status Colonoscopy 10/11/22 Completed Vital Signs Most recent to oldest [Reference Range]: 1 2 3 Height 167 cm (10/11/22 10:13 AM) Weight 63 kg (10/11/22 10:13 AM) Oxygen Saturation [94-100 %] 100 % (10/11/22 11:40 AM) 100 % (10/11/22 11:33 AM) 100 % (10/11/22 10:13 AM) Pulse Rate [55-90 bpm] 81 bpm (10/11/22 10:13 AM) Body Mass Index [18.5-24.99 kg/m2] 22.59 kg/m2 (10/11/22 10:13 AM) Blood Pressure [90-138/55-84 mm Hg] 118/88mm Hg (10/11/22 11:40 AM) 106/70mm Hg (10/11/22 11:33 AM) 118/77mm Hg (10/11/22 10:13 AM) Respiratory Rate [16-30 br/min] 15 br/min *L* (10/11/22 11:40 AM) 15 br/min *L* (10/11/22 11:33 AM) 14 br/min *L* (10/11/22 10:13 AM) Temperature [96.8-100.4 DegF] 98.2 DegF (10/11/22 10:13 AM) Mode of Delivery (Oxygen) Room air (10/11/22 11:40 AM) Room air (10/11/22 11:33 AM) Room air (10/11/22 10:13 AM) Temperature Route Temporal (10/11/22 10:13 AM) Social History Social History Type Response Smoking Status Former smoker, quit more than 30 days ago; Other: Started age 14. Smoked for 42 years. Quit around 05/2021 still smoking 2021; entered on: 11/24/21 Sex Note * Adriana Hui RN: PERFORM Event Display: Discharge/Transfer Note Hospital Authored Date: [id number] Nursing Discharge Note Entered On: 10/11/2022 11:30 EDT Performed On: 10/11/2022 11:30 EDT by Adriana Hui RN Nursing Discharge Note 2 Discharge Time : 10/11/2022 11:50 EDT Discharge Level of Care at Discharge : Home/Longterm/Foster Care Adriana Hui RN - 10/11/2022 11:54 EDT Patient Left Unit Via : Wheelchair Patient Accompanied Off Unit with : Responsible adult DC Instructions Provided & Signed by Pt : Yes Patient Understands D/C Instructions : Yes Patient Instructions Discharge Signed : Yes Adriana Hui RN - 10/11/2022 11:30 EDT * Adriana Hui RN: PERFORM Event Display: Patient Education/Instruction Authored Date: [id number] Inpatient Adult Discharge Instructions [address] [address] Name: AVEL BELLAMY : 1960 Visit: 10/11/2022 09:18:00 Current Date: 10/11/2022 11:31 Account: [id number] Inpatient Adult Discharge Instructions We would like to thank you for allowing us to assist you with your healthcare needs. The following includes patient education materials and information regarding your injury/illness. Our entire staffstrives to provide an excellent experience for our patients and their families. PLEASE ENSURE YOU FOLLOW-UP PER THE INSTRUCTIONS BELOW! ?? YOUR OPINION IS IMPORTANT TO US! Please complete the survey you may receive by mail or email. Your feedback will be used to make improvements to the healthcare experiences of our patients and their families. Surveys are administered by [employer] ?? If further treatment with your primary care physician or another doctor is recommended, it is important for you to keep the appointment. Call your primary care physician or return to the Emergency Department immediately if your condition worsens, fails to improve, or new symptoms develop. If you need to find a doctor, you can call [facility] for a referral at [phone] or toll free at [phone] or log in to [email or web address].. ?? You can view and manage your care through the patient portal or by using a health care sharla of your choosing. [employer] is a website that allows you to securely view your medical information including your hospital discharge summary, office visit summaries, medications and follow-up visits. You can also request appointments, renew medications, and request access to your medical information using a health care sharla of your choosing, or just ask a question. You can enroll at [email or web address] or register during your next office visit. You have been discharged from [facility], Patient Care Unit: ENDO. If you have any questions regarding these instructions after you leave, please call us and we will be happy to assist you. [facility] Your Care Team Attending Physician Mary MCDUFFIE, Denice Discharging Providers Nestor MCDUFFIE, Perez Lugo Reason for Admission COLON SCREENING Tests Performed Below is a partial list of the tests performed during your hospitalization. You may have had other tests and procedures not included in this list. Please discuss all test results with your provider. Primary Care Provider Stephen Kay MD Advance Directive Health Care Proxy on File Yes - Health Care Proxy Discharge Vitals Temperature: 98.2 DegF Height: 167 cm Pulse Rate: 81 bpm Weight: 63 kg Respiratory Rate:??14 br/min??Low Body Mass Index: 22.59 kg/m2 Systolic Blood Pressure: 118 mm Hg Body surface area: 1.71 Diastolic Blood Pressure: 77 mm Hg ?? Oxygen Saturation: 100 % ?? Studies Pending All tests and labs ordered during this hospital stay have been completed unless listed below. Please discuss all pending results with your provider listed above in these instructions. ?? No incomplete studies found What to do next Instructions From Your Doctor Discharge Orders Scheduled Follow-Up Appointments Saturday. 2022 9:40 AM EDT ?? With: Stephen Kay MD Where: [facility] [address] [place] [address]- You Need to Schedule the Following Appointments Follow Up with??As Needed When?? Discharge Medications AVEL BELLAMY :1960 Visit Date:10/11/2022 Medications: Please continue your medications until treatment is completed or stopped by your provider. Medications not listed below should be discontinued. Discuss any questions related to medications with your provider. What How Much When Instructions Next Dose Unchanged Acetaminophen (Tylenol 325 mg oral capsule) 2 capsule Oral Every 4 hours as needed for as needed for pain Unchanged Clobetasol Topical (Clobetasol (Eqv-Temovate)) Topically Twice a day Unchanged Clobetasol Topical (clobetasol 0.05% topical ointment) 1 sharla Topically Every Saturday and apply a thin film use twice weekly ?? Unchanged Fluticasone Nasal (Flonase 50 mcg/ inh nasal spray) 1 spray(s) Nares, Both Twice a day Unchanged Levothyroxine (Synthroid 0.15 mg oral tablet) 1 tab(s) Oral Daily Duration: 30 Days NO SUBSTITUITION BRAND NAME ONLY ?? Unchanged Levothyroxine (Synthroid 0.15 mg oral tablet) 1 tab(s) Oral Daily Duration: 30 Days Test Results Below is a partial list of the most recent Laboratory test results done prior to this discharge. You may have had other tests and procedures not included in this list. Please discuss all test resultswith your provider. Allergies (NKA means No Known Allergies) Sulfite Allergy??(anaphylaxis) Sulfur??(anaphylaxis) Problems Active Problems??(14) Dense breasts?? Encounter for well woman exam with abnormal findings?? Family history of ovarian cancer?? 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 High cholesterol?? History of uterine fibroid?? Hx of migraines?? Hx of squamous cell carcinoma of skin?? Hypothyroidism?? Lichen sclerosus?? Tobacco use disorder?? Urinary problem?? 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 Vulvar lesion?? Education Materials Below is the list of Educational Leaflet Providered with your Discharge Instructions. Surgery Medical Daystay Surgical Overnight Discharge Instructions?? Colon Polypectomy Discharge Instructions?? Valuables and Belongings I fully understand and agree that [facility] accepts no responsibility for all my personal property including clothing, toilet articles, radios, jewelry, dentures, hearing aids, rings, money, or any other property that is in my possession or is brought to me after admission. I understand certain valuables may be placed in a hospital safe for a short period of time. I understand that the hospital is not liable for loss or damage due to accident, fire, or other natural occurrence while said property is in the safe. I accept full responsibility for any personal property that I keep with me, and will not hold the hospital responsible in case of loss or disappearance. I acknowledge that i have been encouraged to send valuables and belongings home. ? Other Discharge Information ? Pulmonary Rehab Status?? Pulmonary Rehab Discharge Status?? Respiratory Rate:??14 br/min??Low ? Common Emergency Awareness Tips IS IT A STROKE? Act FAST and Check for these signs: FACE Does the face look uneven? ARM Does one arm drift down? SPEECH Does their speech sound strange? TIME Call at any sign of stroke ?? Heart Attack Signs Chest discomfort: Most heart attacks involve discomfort in the center of the chest and lasts more than a few minutes, or goes away and comes back. It can feel like uncomfortable pressure, squeezing, fullness or pain. Discomfort in upper body: Symptoms can include pain or discomfort in one or both arms, back, neck, jaw or stomach. Shortness of breath: With or without discomfort. Other signs: Breaking out in a cold sweat, nausea, or lightheaded. Remember, MINUTES DO MATTER. If you experience any of these heart attack warning signs, call to get immediate medical attention! ?? Smoking can increase your chances of developing chronic health problems and can cause harmful effects to other family members in your house. If you smoke, you are strongly encouraged to quit. Please call [facility] at [phone] or 6-656-607[employer] ([employer]) ([phone]) or log in to [email or web address] for referrals to smoking cessation programs. ?? The National Suicide Prevention Hotline is available 04/02 if you or someone you know needs to find a reason to keep living. By calling 9-318-057-zmvf (5834) you'll be connected to a skilled, trained counselor at a crisis center in your area. INPATIENT DISCHARGE INSTRUCTIONS SIGNATURE PAGE AVEL BELLAMY Location:[facility] Registration Date and Time:10/11/2022 09:18 EDT Primary Care Physician: Stephen Kay MD, I AVEL BELLAMY, have received the above patient education materials/instructions and have verbalized understanding. If ambulance or transport services are being used I further acknowledge being givena choice of service. ?? If you need to contact me, please call me at this number: . Patient/Senior Qualitative Researcher Name: Patient/Senior Qualitative Researcher Signature: Relationship to Patient: Witness Name/Signature: Date: Adriana Ortega RN: PERFORM Event Display: Patient Education Leaflets Authored Date: [id number] Surgery Medical Daystay Surgical Overnight Discharge Instructions ?? 295 Medical Daystay/Surgical Overnight Discharge Instructions ? Since your coordination and judgment may be altered by medication and/or anesthesia, a responsible adult must drive you home from the hospital. ? If you have received medication for pain or sedation while under our care, you should not drive, operate machinery, drink alcohol, or sign any legal documents for 24 hours.?? You should have someone with you at home tonight. ? Remain at home the day of discharge.?? You may be up and about unless otherwise instructed by your physician. ? You may resume your daily prescription medication schedule.?? Any depressant medication should be avoided for 24 hours unless otherwise instructed by your surgeon or anesthesiologist. ? Call your physician for a follow-up appointment.? If you experience unusual or severe pain not relied by your pain medication, excessive bleedingor drainage, persistent nausea and vomiting, excessive swelling or redness, foul odor from incisionsite or fever over 100.6F, you need to call your physician. ? A follow-up phone call by a nurse will be made the day after your procedure.?? If you have stayed with us over night, you will not be receiving a follow-up phone call. ? Nausea and vomiting are a common side effect of prescription pain medication.?? We recommend that pills are not taken on an empty stomach.?? While taking any prescription pain medication you should not drive or drink alcohol. ? * Adriana Hui RN: PERFORM Event Display: Patient Education Leaflets Authored Date: [id number] Colon Polypectomy Discharge Instructions ?? 682 ?? Colon Polypectomy Discharge Instructions ??You must carefully read the Consumer Information Use and Disclaimer below in order to understand and correctly use this information??About this topicThe colon is also called the large intestine. It is a long, hollow tube at the end of your digestive tract. It absorbs water from solid waste and changes it from liquid to a solid bowel movement.??A colon polyp is a growth of extra tissue that is not normally in your colon. Colon polyps do not often cause any signs. Most colon polyps are not cancer, but some polyps may turn into cancer. The doctor takes the polyps out during a procedure called a colonoscopy and sends them to the lab for a check to make sure there is no cancer.??You may have a colon polyp or multiple polyps removed. The doctor will send them to the lab to see what type they are. If a polyp is very large, it may need to be removed by surgery.??What care is needed at home? Ask your doctor what you need to do when you go home. Make sure??you ask questions if you do not understand what the doctor says. ??? Do not drive for 24 hours after a colonoscopy. ??? Take your drugs as ordered by your doctor. ??? Go back to your normaldiet unless your doctor has told you to make? some changes in your diet. ??? Rest ??What follow-up care is needed? Your doctor may ask you to make visits to the office to check on your??progress. Be sure to keep these visits. ??? Your doctor may suggest you get tested regularly. People with colon??polyps need to have a colonoscopy regularly to check for the growth??of new polyps. ??? Some polyps may not be removed, and more surgery may be needed. ??? The results of the polyp testing will be given to you at one of these??visits. ??What drugs may be needed?The doctor may order drugs to: ??? Prevent hard stools ??? Help with pain ??? Reduce your risk of colon polyps or colon cancer ??Will physical activity be limited?You may feel sleepy after the colonoscopy. Try to get some rest.??What can be done to prevent this health problem? Have regular colonoscopies.? Eat foods high in fiber. ??? Eat foods low in fat. ??? Limit your intake of beer, wine, and mixed drinks (alcohol). ??? Ask your doctor or dietitian for a diet that is right for you. Include??calcium in your diet. Good sources of calcium include milk, cheese,??and yogurt. ??When do I need to call the doctor? Signs of infection. These include a fever of 100.4??F (38??C) or higher,??chills, and anal itching or pain. ??? Bleeding from rectum that gets worse? Belly becomes swollen and sore ??? Upset stomach and throwing up continues after you return home ??? Not being able to move your bowels ??? Weight loss without trying ??? Blood in your stool ??Teach Back: Helping You UnderstandThe Teach Back Method helps you understand the information we are giving you. After you talk with the staff, tell them in your own words what you learned. This helps to make sure the staff has described each thing clearly. It also helps to explain things that mayhave been confusing. Before going home, make sure you can do these:? I can tell you about my co ndition. ??? I can tell you what changes I need to make with my diet. ??? I can tell you what I will do if my stomach is swollen, I have belly pain,??or there is blood in my stool. ??Where can I learn more?BetterHealthhttps://www.betterhealth.ted[place].gov.au/health/ConditionsAndTreatme nts/colonoscopyNHSh ttps://www.nhs.uk/conditions/bowel-polyps/UpToDatehttps://www.HomeSphereCan'tWaitcom/shaw nts/winac-gwawqb-isfedk-the-basics??Last Reviewed Uhfu5503-89-33Slwskykh Information Use and Disclaimer:This generalized information is a limited summary of diagnosis, treatment, and/or medication information. It is notmeant to be comprehensive and should be used as a tool to help the user understand and/or assess potential diagnostic and treatment options. It does NOT include all information about conditions, treatments, medications, side effects, or risks that may apply to a specific patient. It is not intendedto be medical advice or a substitute for the medical advice, diagnosis, or treatment of a health care provider based on the health care provider's examination and assessment of a patient???s specificand unique circumstances. Patients must speak with a health care provider for complete information about their health, medical questions, and treatment options, including any risks or benefits regarding use of medications. This information does not endorse any treatments or medications as safe, effective, or approved for treating a specific patient. [employer] and its affiliates disclaim any warranty or liability relating to this information or the use thereof. The use of this information is governed by the Terms of Use, available at??https://www.EXFO.com/en/know/clinical-effectiveness- termsLast Updated 09/06/21? Patient Care team information Care Team Personnel Name: Stephen Kay MD Position: [facility] Primary Care Physician Member Role: PCP Address: Address: [address] [place] [address] Adult [place] [address]- Care Team Related Persons Name: QUEENIE CARRANZA Address: home [address] [place] [address] Name: TYRONE CARRANZA Address: home [address] [place] [address]
--- OUTSIDE RECORDS SUMMARY | 2024-04-23 20:23 | XMS_ITS | Continuity of Care Document ---
Author Organization [facility] Address [address] [place] [address]- Care Team Providers Care Loss Prevention Research Engineer Name Role Phone Stephen Kay MD Primary Care Physician Encounter [facility] Date(s): 08/23/23 - 09/22/23 [facility] [address] [place], [place] [address] Allergies, Adverse Reactions, Alerts Substance Reaction Severity [...] each, 0 Refills, Maintenance, 08/22/23 18:12:00 EST, [id number], 25, INHALE 2 PUFFS INTO LUNGS EVERY 6 HOURS NEEDED FOR WHEEZING/SHORTN... Start Date: 08/22/23 Status: Ordered atorvastatin 20 mg oral tablet 1 tablet = 20 mg, By Mouth, Daily, # 90 tablet, 3 Refills, Maintenance, 08/22/23 18:12:00 EST, Tablet, [facility]/pharmacy #[id number], Partial fill upon patient request if the prescription is for a schedule II opioid drug., 168, cm, 07/24/23 9:56:00 EST, Height,... Start Date: 08/22/23 Status: Ordered clobetasol 0.05% topical ointment 1 application, Topically, Every Saturday and , apply a thin film use twice weekly, # 60 Gm, 11 Refills, Acute 08/07/25 0:00:00 EST, 08/07/22 11:15:00 EST, Ointment, [facility]/pharmacy #[id number], Partial fill upon patient request if the prescription is for... Start Date: 08/07/22 Stop Date: 08/07/25 Status: Ordered clobetasol 0.05% topical ointment 1 application, Topically, Every Saturday and , apply a thin film twice weekly in morning and evening,, # 60 Gm, 11 Refills, Acute 03/25/27 0:00:00 EDT, 08/07/25 0:00:00 EST, Ointment, [facility]/pharmacy #[id number], Partial fill upon patient request if the... Start Date: 08/07/25 Stop Date: 03/25/27 Status: Ordered Flonase 50 mcg/inh nasal spray 1 sprays, Nares, Both, 2 times a day, # 16 Gm, 0 Refills, Maintenance, 08/09/22 17:35:00 EST, [place], [facility]/pharmacy #[id number], This is NOT a routine chronic medication, 1 sprays Nares, Both 2 times a day, 166.9, cm, 08/09/22 13:41:00 EST, Height, 63,... Start Date: 08/09/22 Status: Ordered ProAir HFA 90 mcg/inh inhalation aerosol with adapter 2, puffs, Inhalation, Every 6 hours, PRN, # 8.5 Gm, Refills 0, Tot. Refills 0, Maintenance, 05/30/23 14:04:00 EST, Aerosol, Route to Pharmacy Electronically, [id number], [facility]/pharmacy #[id number], 168, cm, 05/30/23 11:48:00 EST, Hei... Start Date: 05/30/23 Status: Ordered Synthroid 0.15 mg oral tablet See Instructions, 1 tablet from Saturday to Saturday and two tablets on Saturday, # 102 tablet, 4 Refills, Maintenance, 06/27/23 9:46:00 EST, [facility]/pharmacy #[id number], 168, cm, 06/25/23 10:11:00 EST, Height, 64.3, kg, 03/25/23 11:14:00 EDT, Dry Weight Start Date: 06/27/23 Status: Ordered Tylenol 325 mg oral capsule 2 capsule = 650 mg, By Mouth, Every 4 hours, PRN as needed for pain, # 50 tablet, 0 Refills, Maintenance, 08/11/21 15:51:00 EST, Capsule, [facility]/pharmacy #[id number], Partial fill upon patient request [...] Personnel Name: Eliza MCDUFFIE, Stephen Cao Position: [facility] Physician - Primary Care Member Role: PCP Address: Address: [address] [place] [address] Adult & [place] [address]- Care Team Related Persons Name: QUEENIE CARRANZA Address: home [address] [place] [address] Name: TYRONE CARRANZA Address: home [address] [place] [id number]
--- OUTSIDE RECORDS SUMMARY | 2024-04-23 20:23 | XMS_ITS | Continuity of Care Document ---
Author Organization [facility] Address [address] [place] [address]- Care Team Providers Care Plisse Machine Operator Helper Name Role Phone Stephen Kay MD Primary Care Physician [place] [facility] [place] 12[place]01/21 [facility] [address] [place], [place] [address] Attending Physician: Stephen Kay MD Allergies, Adverse [...] 7 Refills, Maintenance, 07/06/21 13:28:00 EST, Tablet, [id number], duplicate rx. original sent 03/09/21. remaining [...] abnormal findings(Confirmed) Active Tobacco use disorder(Confirmed) Active Vital Signs Most recent to oldest [Reference Range]: 1 Height 167.64 cm (11/24/21 10:15 AM) Weight 66.7 kg (11/24/21 10:15 AM) Oxygen Saturation [94-100 %] 97 % (11/24/21 10:15 AM) Pulse Rate [55-90 bpm] 94 bpm *H* (11/24/21 10:15 AM) Body Mass Index [18.5-24.99] 23.73 (11/24/21 10:15 AM) Blood Pressure [90-138/55-84 mm Hg] 100/ 60mm Hg (11/24/21 10:15 AM) Blood pressure sites Arm, left (11/24/21 10:15 AM) Social History Social History Type Response Smoking Status Former smoker, quit more than 30 days ago; Other: Started age 14. Smoked for 42 years. Quit around 05/2021 still smoking 2021; entered on: 11/24/21 Sex
--- OUTSIDE RECORDS SUMMARY | 2024-04-23 20:24 | XMS_ITS | Continuity of Care Document ---
Author Organization [facility] Address [address] [place] [address]- Care Team Providers Care Cop Name Role Phone Stephen Kay MD Primary Care Physician En[place] [facility] [place]s): 06/08/22 - 07/08/22 [facility] [address] [place] [id number] Allergies, Adverse Reactions, Alerts Substance [...] Team Personnel Name: Stephen Kay MD Position: [facility] Primary Care Physician Member Role: PCP Address: Address: [address] [place] [address] Adult & [place] [address]- Care Team Related Persons Name: QUEENIE CARRANZA Address: home [address] [place] [address] Name: TYRONE CARRANZA Address: home [address] [place] [address]
--- OUTSIDE RECORDS SUMMARY | 2024-04-23 20:24 | XMS_ITS | Continuity of Care Document ---
Author Organization [facility] POLICY VALUE CALCULATOR Oncolog y Address [address] [place] [address]- Care Team Providers Care Ergonomics Technician Name Role Phone Stephen Kay MD Primary Care Physician [place] [facility] [place]09[place]21 - 09/24/21 [facility] POLICY VALUE CALCULATOR Oncology [address] [place] [address]- Attending Physician: Anum Minor MD Admitting Physician: Anum Minor MD Referring Physician: Stephen Kay MD Allergies, Adverse Reactions, [...] 08/11/21 15:50:00 EST, [id number] Partial fill upon patientrequest if the prescription is for a schedule II op... Start Date: 08/11/21 Status: Ordered lidocaine 2% topical gel with applicator 5 mL = 0.1 Gm, Topically, Once, Apply 30 mins prior to scheduled vulvar procedure, # 10 mL, 0 Refills, Soft Stop, 09/06/21 10:36:00 EST, Gel, [facility]/pharmacy #[id number], Partial fill upon patient request if the prescription is for a schedule II opioid drug.,... Start Date: 09/06/21 Status: Ordered Lipitor 20 mg oral tablet 1 tablet = 20 mg, By Mouth, Daily, # 30 tablet, 11 Refills, Maintenance, 05/25/21 12:08:00 EST, Tablet, [facility]/pharm[facility] #[id number], Partial fill upon patient request [...] 7 Refills, Maintenance, 07/06/21 13:28:00 EST, Tablet, [id number]. original sent 03/09/21. remaining r... Start Date: 07/06/21 Stop Date: 03/03/22 Status: Ordered Tylenol 325 mg oral capsule 2 capsule = 650 mg, By Mouth, Every 4 hours, PRN as needed for pain, # 50 tablet, 0 Refills, Maintenance, 08/11/21 15:51:00 EST, Capsule, [facility]/pharmacy #[id number], Partial fill upon patient request [...]
--- OUTSIDE RECORDS SUMMARY | 2024-04-23 20:24 | XMS_ITS | Continuity of Care Document ---
Author Organization [facility] Address [address] [place] [address]- Care Team Providers Care Saw Feeder Name Role Phone Eliza MCDUFFIE, Stephen Cao Primary Care Physician [facility]counter [facility] Date(s): 06/30/23 - 07/30/23 [facility] [address] [place], [place] [address] Allergies, Adverse [...] 08/07/25 0:00:00 EST, 08/07/22 11:15:00 EST, Ointment, [facility]/pharmacy #[id number], Partial fill upon patient request if the prescription is for... Start Date: 08/07/22 Stop Date: 08/07/25 Status: Ordered clobetasol 0.05% topical ointment 1 application, Topically, Every Saturday and , apply a thin film twice weekly in morning and evening,, # 60 Gm, 11 Refills, Acute 03/25/27 0:00:00 EDT, 08/07/25 0:00:00 EST, Ointment, [facility]/pharmacy #[id number], Partial fill upon patient request if the... Start Date: 08/07/25 Stop Date: 03/25/27 Status: Ordered Flonase 50 mcg/inh nasal spray 1 sprays, Nares, Both, 2 times a day, # 16 Gm, 0 Refills, Maintenance, 08/09/22 17:35:00 EST, [place], [facility]/pharmacy #[id number], This is NOT a routine chronic medication, 1 sprays Nares, Both 2 times a day, 166.9, cm, 08/09/22 13:41:00 EST, Height, 63,... Start Date: 08/09/22 Status: Ordered ProAir HFA 90 mcg/inh inhalation aerosol with adapter 2, puffs, Inhalation, Every 6 hours, PRN, # 8.5 Gm, Refills 0, Tot. Refills 0, Maintenance, 05/30/23 14:04:00 EST, Aerosol, Route to Pharmacy Electronically, [id number], [facility]/pharmacy #[id number], 168, cm, 05/30/23 11:48:00 EST, Hei... Start Date: 05/30/23 Status: Ordered rosuvastatin 5 mg oral tablet 1 tablet = 5 mg, By Mouth, Daily, # 90 tablet, 3 Refills, Maintenance, 07/24/23 10:18:00 EST, Tablet, [facility]/pharmacy #[id number], Partial fill upon patient request [...] Team Personnel Name: Stephen Kay MD Position: [facility] Physician - Primary Care Member Role: PCP Address: Address: [address] [place] [address] Adult & [place] [address]- Care Team Related Persons Name: QUEENIE CARRANZA Address: home [address] [place] [address] Name: TYRONE CARRANZA Address: home [address] [place] [address]
--- OUTSIDE RECORDS SUMMARY | 2024-04-23 20:24 | XMS_ITS | Continuity of Care Document ---
Author Organization [facility] Address [address] [facility], [address] d Floor, [address] [place] [address]- Care Team Providers Care Enterprise Architect Manager Name Role Phone Stephen Kay MD Primary Care Physician Encounter [facility] Date(s): 11/24/22 - 12/24/22 [facility] [address], [address], [address] [place] [address] Attending Physician: AdmtrLuz Elena Admitting Physician: AdmtrLuz Elena Referring Physician: Admtr, Ar8 Allergies, Adverse Reactions, [...] without incident.....vs Medications aspirin 81 mg oral tablet, chewable 81 mg, 1, tablet, By Mouth, Every other day, # 30 tablet, Refills 0, Tot. Refills 0, Maintenance, 11/22/22 17:09:00 EDT, Route to Pharmacy Electronically, [facility]/pharmacy #[id number], Partial fill upon patient request if the prescription is for a schedule II o... Start Date: 11/22/22 Status: Ordered Clobetasol (Eqv-Temovate) Topically, 2 times a day, [...] EST, 08/07/22 11:15:00 EST, Ointment, [facility]/pharmacy #[id number], Partial fill upon patient request if the prescription is for... Start Date: 08/07/22 Stop Date: 08/07/25 Status: Ordered Flonase 50 mcg/inh nasal spray 1 sprays, Nares, Both, 2 times a day, # 16 Gm, 0 Refills, Maintenance, 08/09/22 17:35:00 EST, [place], [facility]/pharmacy #[id number], This is NOT a routine chronic medication, 1 sprays Nares, Both 2 times a day, 166.9, cm, 08/09/22 13:41:00 EST, Height, 63,... Start Date: 08/09/22 Status: Ordered Plavix 75 mg oral tablet 75 mg, 1, tablet, By Mouth, Daily, # 30 tablet, Refills 1, Tot. Refills 1, Maintenance, 11/30/22 10:44:00 EDT, Route to Pharmacy Electronically, [facility]/pharmacy #[id number], Partial fill upon patient request if the prescription is for a schedule II opioid drug... Start Date: 11/30/22 Status: Ordered Synthroid 0.15 mg oral tablet 1 tablet = 150 mcg, By Mouth, Daily, NO SUBSTITUITION BRAND NAME ONLY, # 30 tablet, 6 Refills, Maintenance, 12/25/22 12:32:00 EDT, Tablet, [facility]/pharmacy #[id number], Partial fill upon patient request if theprescription is for a schedule II opioid drug., 167... Start Date: 12/25/22 Stop Date: 07/23/23 Status: Ordered Tylenol 325 mg oral capsule 2 capsule = 650 mg, By Mouth, Every 4 hours, PRN as needed for pain, # 50 tablet, 0 Refills, Maintenance, 08/11/21 15:51:00 EST, Capsule, [id number], Partial fill upon patient request if the [...] Team Personnel Name: Stephen Kay MD Position: [facility] Physician - Primary Care Member Role: PCP Address: Address: [address] [place] [address] Adult & [place] [address]- Care Team Related Persons Name: QUEENIE CARRANZA Address: home [address] [place] [address] Name: TYRONE CARRANZA Address: home [address] [place] [address]
--- OUTSIDE RECORDS SUMMARY | 2024-04-23 20:24 | XMS_ITS | Continuity of Care Document ---
Author Organization [facility] Address [address] [place] [address]- Care Team Providers Care Booster Pump Operator Name Role Phone Stephen Kay MD Primary Care Physician Encounter [facility] Date(s): 04/29/21 - 05/29/21 [facility] [address] [place] [address]- Allergies, Adverse Reactions, Alerts Substance Reaction Severity Status Sulfur Active Sulfite Allergy anaphylaxis Active Immunizations Given [...] 16:39:58, Tablet Start Date: 12/31/16 Status: Ordered Engerix-B 20 mcg/mL intramuscular suspension 1 mL = 20 mcg, Intramuscular, Every 30 days, inject Day 0, 1 month, and 6 months, # 1 mL, 2 Refills, Maintenance, 07/16/17 9:33:31, Suspension Start Date: 07/16/17 Status: Ordered Lipitor 20 mg oral tablet 1 tablet = 20 mg, By Mouth, Daily, # 30 tablet, 11 Refills, Maintenance, 05/25/21 12:08:00 EST, Tablet, [id number], Partial fill upon patient request if the prescription is for a schedule II opioid drug., 168.5, cm, 05/25/21 11:36:00 EST, Height Start Date: 05/25/21 Status: Ordered Synthroid 137 mcg (0.137 mg) oral tablet 1 tablet = 137 mcg, By Mouth, Daily, take an 2 tablets on Sundays; NO SUBSTITUTIONS; BRAND NAME MEDICALLY NECESSARY, # 35 each, 11 Refills, Maintenance, 03/10/21 12:39:00 EDT, Tablet, [facility]/pharmacy #[id number], 168.5, cm, 10/02/18 13:14:00 EDT, Height Start Date: 03/10/21 Stop Date: 03/05/22 Status: Ordered Vitamin C By Mouth, Daily, 0 Refills, Maintenance, 07/28/15 9:11:18 Start Date: 07/28/15 Status: Ordered Problem List Condition Effective Dates Status Health Status Inform ant Dense breasts(Confirmed) Active FH: CAD (coronary artery disease)(Confirmed) Active Family history of ovarian cancer(Confirmed) Active 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
--- OUTSIDE RECORDS SUMMARY | 2024-04-23 20:24 | XMS_ITS | Continuity of Care Document ---
Author Organization [facility] Address [address] [place] [address]- Care Team Providers Care Elementary Educator Name Role Phone Stephen Kay MD Primary Care Physician [facility]counter [facility] Date(s): 04/20/21 - 04/27/21 [facility] [address] [place], [place] [address] Attending Physician: Stephen Kay [...] 9:33:31, Suspension Start Date: 07/16/17 Status: Ordered Synthroid 137 mcg (0.137 mg) oral tablet 1 tablet = 137 mcg, By Mouth, Daily, take an 2 tablets on Sundays; NO SUBSTITUTIONS; BRAND NAME MEDICALLY NECESSARY, # 35 each, 11 Refills, Maintenance, 03/10/21 12:39:00 EDT, Tablet, [id number], 168.5, cm, 10/02/18 13:14:00 EDT, Height Start Date: 03/10/21 Stop Date: 03/05/22 Status: Ordered Vitamin C By Mouth, Daily, 0 Refills, Maintenance, 07/28/15 9:11:18 Start Date: 07/28/15 Status: Ordered Problem List Condition Effective Dates Status Health Status Inform ant Dense breasts(Confirmed) Active Family history of ovarian cancer(Confirmed) Active 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 Hx of squamous cell carcinom a of skin(Confirmed) Active Hypothyroidism(Confirmed) Active Tobacco use disorder(Confirmed) Active Vital Signs Most recent to oldest [Reference Range]: 1 Height 168.50 cm (04/20/21 10:13 AM) Weight 68.6 kg (04/20/21 10:13 AM) Oxygen Saturation [94-100 %] 98 % (04/20/21 10:13 AM) Pulse Rate [55-90 bpm] 88 bpm (04/20/21 10:13 AM) Body Mass Index [18.5-24.99] 24.16 (04/20/21 10:13 AM) Blood Pressure [90-138/55-84 mm Hg] 110/ 66mm Hg (04/20/21 10:13 AM) Temperature [96.8-100.4 DegF] 98.5 DegF (04/20/21 10:13 AM) Blood pressure sites Arm, left (04/20/21 10:13 AM) Social History Social History Type Response Smoking Status Current every day david beatty; Number of years: 42; Total pack years: 42; Started at age: 14; entered on: 12/27/16 Sex
--- OUTSIDE RECORDS SUMMARY | 2024-04-23 20:24 | XMS_ITS | Continuity of Care Document ---
Author Organization [facility] Address [address] [place] [address]- Care Team Providers Care Cold Mill Supervisor Name Role Phone Stephen Kay MD Primary Care Physician Encounter [facility] Date(s): 08/09/22 - 08/16/22 [facility] [address] [place], [place] [address] Attending Physician: Stephen Kay MD [...] 0:00:00 EST, 08/07/22 11:15:00 EST, Ointment, [facility]/pharmacy #[id number], Partial fill upon patient request if the prescription is for... Start Date: 08/07/22 Stop Date: 08/07/25 Status: Ordered Flonase 50 mcg/inh nasal spray 1 sprays, Nares, Both, 2 times a day, # 16 Gm, 0 Refills, Maintenance, 08/09/22 17:35:00 EST, [place], [facility]/pharmacy #[id number], This is NOT a routine chronic medication, 1 sprays Nares, Both 2 times a day, 166.9, cm, 08/09/22 13:41:00 EST, Height, 63,... Start Date: 08/09/22 Status: Ordered Synthroid 0.15 mg oral tablet 1 tablet = 150 mcg, By Mouth, Daily, for 30 days, # 30 tablet, 6 Refills, Hard Stop 12/25/22 12:32:00 EDT, 05/29/22 12:32:00 EST, Tablet, [facility]/pharmacy #[id number], Partial fill upon patient request if the prescription is for a schedule II opioid drug., 167.... Start Date: 05/29/22 Stop Date: 12/25/22 Status: Ordered Synthroid 0.15 mg oral tablet 1 tablet = 150 mcg, By Mouth, Daily, NO SUBSTITUITION BRAND NAME ONLY, # 30 tablet, 6 Refills, Maintenance, 12/25/22 12:32:00 EDT, Tablet, [facility]/pharmacy #[id number], Partial fill upon patient request if theprescription is for a schedule II opioid drug., 167... Start Date: 12/25/22 Stop Date: 07/23/23 Status: Ordered Tylenol 325 mg oral capsule 2 capsule = 650 mg, By Mouth, Every 4 hours, PRN as needed for pain, # 50 tablet, 0 Refills, Maintenance, 08/11/21 15:51:00 EST, Capsule, [facility]/pharmacy #[id number], Partial fill upon patient request [...] recent to oldest [Reference Range]: 1 Height 166.9 cm (08/09/22 1:41 PM) Oxygen Saturation [94-100 %] 97 % (08/09/22 1:41 PM) Pulse Rate [55-90 bpm] 77 bpm (08/09/22 1:41 PM) Blood Pressure [90-138/55-84 mm Hg] 90/6 0mm Hg (08/09/22 1:41 PM) Mode of Delivery (Oxygen) Room air (08/09/22 1:41 PM) Blood pressure sites Arm, left (08/09/22 1:41 PM) Social History Social History Type Response Smoking Status Former smoker, quit more than 30 days ago; Other: Started age 14. Smoked for 42 years. Quit around 05/2021 still smoking 2021; entered on: 11/24/21 Sex Note * Olivia Juares: PERFORM, SIGN, VERIFY Event Display: Patient Education/Instruction Authored Date: [id number] [facility] *[facility] Clinical Summary Name AVEL BELLAMY Age 62 Years 1960 PCP Eliza MCDUFFIE, Stephen Cao PCP Visit Date 08/09/2022 13:30:00 Additional Instructions: Scheduled Appointments?? Future Appointments ?[facility] ?[address]??[place],??[place],??[address] ?Phone:??[phone]?Fax:??-- ?Appt. Date:??10/11/2022?10:30 AM ?Scheduled Provider:??[id number] Follow-Up Instructions ?? Diagnosis Other specified disorders of Eustachian tube, unspecified ear Medications: Please continue your medications until treatment is completed or stopped by your provider. Discuss any questions related to medications with your provider. New Medications [facility]/pharmacy #[id number], [address] [place] [phone], [phone] Fluticasone Nasal (Flonase 50 mcg/inh nasal spray) 1 spray(s) Nares, Both twice a day. Refills: 1. Next Dose: Medications to Continue with No Changes These medications were not printed or sent to your pharmacy Acetaminophen (Tylenol 325 mg oral capsule) 2 capsule Oral every 4 hours as needed as needed for pain. Refills: 0. Next Dose: Clobetasol Topical (Clobetasol (Eqv-Temovate)) Topically twice a day. Next Dose: Clobetasol Topical (clobetasol 0.05% topical ointment) 1 sharla Topically every Saturday and . apply a thin film use twice weekly. Refills: 11. Next Dose: Levothyroxine (Synthroid 0.15 mg oral tablet) 1 tab(s) Oral Daily for 30 Days. NO SUBSTITUITION BRAND NAME ONLY. Refills: 6. Next Dose: Levothyroxine (Synthroid 0.15 mg oral tablet) 1 tab(s) Oral Daily for 30 Days. Refills: 6. Next Dose: Allergy Info:?? Sulfite Allergy; Sulfur Medications Given This Visit Future Orders ?No future orders Vital Signs Height 166.9 cm Weight BMI Blood Pressure 90 mm Hg/60 mm Hg Temperature Pulse Rate 77 bpm Respiratory Rate 02 Sat Mode of Delivery 97 %/Room air You can now view a summary of your hospital visit from the comfort of your home through a free online portal called [employer]. [employer] is a website that allows you to securely view your medical information including discharge summary, medications and follow-up visits. ??You can alsosend a secure electronic message to your doctor???s office to request appointments, renew medications or just ask a question. You can enroll at [email or web address] or register during your next office visit. Disclaimer:?? The information provided is of a general nature and is intended to be used in conjunction with the recommendations and advice of your health care practitioner. ??Every effort has been made to ensure that the information provided is accurate and complete at the time it is provided to you however, as your needs change, or, as new ??information becomes available, different or additional instructions may be required. If you have questions, please consult with your primary care provider or pharmacist, as appropriate. ??This information is not intended to serve as substitution for assessment and evaluation by a qualified health care provider. If you do not have a primary care provider, you may find a [facility] provider by calling [facility] [employer] at [phone]. For information about the plan of care including goals and instructions for your diagnosis, please see the patient education orders section of this document. Patient Education Materials?? The content of this educational material or handout may have been modified, supplemented, or adapted from its original content and format to support your individualized medical care. Additional Provider Instructions: Arthritis Acetaminophen ( tylenol 8 ) 650 mgs per pill take one or two every 8 hours routinely + FLONASE 2 sprays in each nostril daily for a bout 2 weeks SHINGRIX vaccine BIVALENT COVID Vaccine booster MODERNA or PFIZER get FLU SHOT GET PNEUMOVAX 20 Patient Care team information Care Team Personnel Name: Stephen Kay MD Position: [facility] Primary Care Physician Member Role: PCP Address: Address: [address] [place] [address] Adult & [place] [address]- Care Team Related Persons Name: QUEENIE CARRANZA Address: home [address] [place] [address] Name: TYRONE CARRANZA Address: home [address] [place] [address]
--- OUTSIDE RECORDS SUMMARY | 2024-04-23 20:24 | XMS_ITS | Continuity of Care Document ---
Author Organization [facility] Address [address] [place] [address]- Care Team Providers Care Document Processor Name Role Phone Stephen Kay MD Primary Care Physician [phone] Encounter [facility] Date(s): 12/22/19 - 01/21/20 [facility] [address] [place] [address] [facility] Attending Physician: Luz Elena Berry Admitting Physician: AdmtrLuz Elena Referring Physician: Admtr, Ar8 Allergies, Adverse Reactions, Alerts Substance Reaction Severity Status Sulfur Active Sulfite Allergy anaphylaxis Active Immunizations Given and Recorded Vaccine Date Status Refusal Reason hepatitis B adult vaccine 1 08/22/17 Recorded [...] 9:33:31, Suspension Start Date: 07/16/17 Status: Ordered Flonase 50 mcg/inh nasal spray 1 sprays, Nares, Both, 2 times a day, # 16 Gm, 0 Refills, Maintenance, 02/20/18 9:42:10 EDT, [place],1 sprays Nares, Both 2 times a day Start Date: 02/20/18 Status: Ordered NuLYTELY with Flavor Packs oral powder for reconstitution 4,000 mL, By Mouth, Once, Drink 8 oz every 10 minutes until finished., # 4,000 mL, 0 Refills, Soft Stop, 02/15/17 12:06:26, 4,000 mL By Mouth Once,Instr:Drink 8 oz every 10 minutes until finished. Start Date: 02/15/17 Status: Ordered Synthroid 137 mcg (0.137 mg) oral tablet 1 tablet = 137 mcg, By Mouth, Daily, for 90 days, take an 2 tablets on Sundays; NO SUBSTITUTIONS; BRAND NAME MEDICALLY NECESSARY, # 110 tablet, 0 Refills, Hard Stop 03/15/20 12:39:00 EDT, 12/16/19 12:39:00 EDT, Tablet, [facility]/pharmacy #[id number], 168.5, cm, 0... Start Date: 12/16/19 Stop Date: 03/15/20 Status: Ordered Synthroid 137 mcg (0.137 mg) oral tablet 1 tablet = 137 mcg, By Mouth, Daily, take an 2 tablets on Sundays; NO SUBSTITUTIONS; BRAND NAME MEDICALLY NECESSARY, # 110 tablet, 3 Refills, Maintenance, 03/15/20 12:39:00 EDT, Tablet, [facility]/pharmacy #[id number], 168.5, cm, 10/02/18 13:14:00 EDT, Height Start Date: 03/15/20 Stop Date: 03/10/21 Status: Ordered Vitamin C By Mouth, Daily, [...]
--- OUTSIDE RECORDS SUMMARY | 2024-04-23 20:24 | XMS_ITS | Continuity of Care Document ---
Author Organization [facility] Address [address] [place] [address]- Care Team Providers Care Load Out Worker Name Role Phone Eliza MCDUFFIE, Stephen Cao Primary Care Physician [phone] [facility]counter [facility] Date[facility]s): 07/27/22 - 08/26/22 [facility] [address] [place], [place] [address] Allergies, Adverse Reactions, Alerts Substance [...] 08/07/25 0:00:00 EST, 08/07/22 11:15:00 EST, Ointment, [facility]/pharmacy #[id number], Partial fill upon patient request if the prescription is for... Start Date: 08/07/22 Stop Date: 08/07/25 Status: Ordered Flonase 50 mcg/inh nasal spray 1 sprays, Nares, Both, 2 times a day, # 16 Gm, 0 Refills, Maintenance, 08/09/22 17:35:00 EST, [place], [facility]/pharmacy #[id number], This is NOT a routine chronic medication, 1 sprays Nares, Both 2 times a day, 166.9, cm, 08/09/22 13:41:00 EST, Height, 63,... Start Date: 08/09/22 Status: Ordered Synthroid 0.15 mg oral tablet 1 tablet = 150 mcg, By Mouth, Daily, for 30 days, # 30 tablet, 6 Refills, Hard Stop 12/25/22 12:32:00 EDT, 05/29/22 12:32:00 EST, Tablet, [facility]/pharmacy #[id number], Partial fill upon patient request if the prescription is for a schedule II opioid drug., 167.... Start Date: 05/29/22 Stop Date: 12/25/22 Status: Ordered Synthroid 0.15 mg oral tablet 1 tablet = 150 mcg, By Mouth, Daily, NO SUBSTITUITION BRAND NAME ONLY, # 30 tablet, 6 Refills, Maintenance, 12/25/22 12:32:00 EDT, Tablet, [facility]/pharmacy #[id number], Partial fill upon patient request if theprescription is for a schedule II opioid drug., 167... Start Date: 12/25/22 Stop Date: 07/23/23 Status: Ordered Tylenol 325 mg oral capsule 2 capsule = 650 mg, By Mouth, Every 4 hours, PRN as needed for pain, # 50 tablet, 0 Refills, Maintenance, 08/11/21 15:51:00 EST, Capsule, [facility]/pharmacy #[id number], Partial fill upon patient request if [...] Kay MD Position: [facility] Primary Care Physician Member Role: PCP Address: Address: [address] [place] [address] Adult [place] [address]- Care Team Related Persons Name: QUEENIE CARRANZA Address: home [address] [place] [address] Name: TYRONE CARRANZA Address: home [address] [place] [address]
--- OUTSIDE RECORDS SUMMARY | 2024-04-23 20:24 | XMS_ITS | Continuity of Care Document ---
Author Organization [facility] Address [address] [place] [address]- Care Team Providers Care Desktop Support Associate Name Role Phone Eliza MCDUFFIE, Stephen Cao Primary Care Physician [facility] Date[facility]s): 08/09/22 - 09/08/22 [facility] [address] [place], [place] [address] Allergies, Adverse Reactions, Alerts Substance Reaction [...] 08/07/25 0:00:00 EST, 08/07/22 11:15:00 EST, Ointment, [facility]/pharmacy #[id number], Partial fill upon patient request if the prescription is for... Start Date: 08/07/22 Stop Date: 08/07/25 Status: Ordered Flonase 50 mcg/inh nasal spray 1 sprays, Nares, Both, 2 times a day, # 16 Gm, 0 Refills, Maintenance, 08/09/22 17:35:00 EST, [place], [facility]/pharmacy #[id number], This is NOT a routine chronic medication, 1 sprays Nares, Both 2 times a day, 166.9, cm, 08/09/22 13:41:00 EST, Height, 63,... Start Date: 08/09/22 Status: Ordered Synthroid 0.15 mg oral tablet 1 tablet = 150 mcg, By Mouth, Daily, for 30 days, # 30 tablet, 6 Refills, Hard Stop 12/25/22 12:32:00 EDT, 05/29/22 12:32:00 EST, Tablet, [facility]/pharmacy #[id number], Partial fill upon patient request if the prescription is for a schedule II opioid drug., 167.... Start Date: 05/29/22 Stop Date: 12/25/22 Status: Ordered Synthroid 0.15 mg oral tablet 1 tablet = 150 mcg, By Mouth, Daily, NO SUBSTITUITION BRAND NAME ONLY, # 30 tablet, 6 Refills, Maintenance, 12/25/22 12:32:00 EDT, Tablet, [facility]/pharmacy #[id number], Partial fill upon patient request if theprescription is for a schedule II opioid drug., 167... Start Date: 12/25/22 Stop Date: 07/23/23 Status: Ordered Tylenol 325 mg oral capsule 2 capsule = 650 mg, By Mouth, Every 4 hours, PRN as needed for pain, # 50 tablet, 0 Refills, Maintenance, 08/11/21 15:51:00 EST, Capsule, [facility]/pharmacy #[id number], Partial fill upon patient request if [...] Team Personnel Name: Stephen Kay MD Position: [facility] Primary Care Physician Member Role: PCP Address: Address: [address] [place] [address] Adult & [place] [address]- Care Team Related Persons Name: QUEENIE CARRANZA Address: home [address] [place] [address] Name: TYRONE CARRANZA Address: home [address] [place] [address]
--- OUTSIDE RECORDS SUMMARY | 2024-04-23 20:24 | XMS_ITS | Continuity of Care Document ---
Author Organization [facility] Address [address] [place] [address]- Care Team Providers Care Bariatric Surgeon Name Role Phone Stepehn Kay MD Primary Care Physician [phone] [facility] [place] - 12/27/21 [facility] [address] [place] [address]- [place] Allergies, Adverse Reactions, Alerts Substance Reaction [...] Refills, Maintenance, 09/23/21 10:33:00 EST, Lotion, [id number], Partial fill upon patient request if the [...] 7 Refills, Maintenance, 07/06/21 13:28:00 EST, Tablet, [facility]/pharmacy #[id number], duplicate rx. original sent 03/09/21. remaining r... Start Date: 07/06/21 Stop Date: 03/03/22 Status: Ordered Tylenol 325 mg oral capsule 2 capsule = 650 mg, By Mouth, Every 4 hours, PRN as needed for pain, # 50 tablet, 0 Refills, Maintenance, 08/11/21 15:51:00 EST, Capsule, [facility]/pharmacy #[id number], Partial fill upon patient request if [...]
--- OUTSIDE RECORDS SUMMARY | 2024-04-23 20:24 | XMS_ITS | Continuity of Care Document ---
Author Organization [facility] Address [address] [place] [address]- Care Team Providers Care Spout Tender Name Role Phone Stephen Kay MD Primary Care Physician [phone] [place] [facility] [place] 12/07/22 [facility] [address] [place], [place] [address] Attending Physician: Stephen Kay MD Allergies, Adverse [...] 11/22/22 17:09:00 EDT, Route to Pharmacy Electronically, [facility]/pharmacy #[id number], Partial fill upon patient request if the [...] 08/07/25 0:00:00 EST, 08/07/22 11:15:00 EST, Ointment, [facility]/pharmacy #[id number], Partial fill upon patient request if the prescription is for... Start Date: 08/07/22 Stop Date: 08/07/25 Status: Ordered Flonase 50 mcg/inh nasal spray 1 sprays, Nares, Both, 2 times a day, # 16 Gm, 0 Refills, Maintenance, 08/09/22 17:35:00 EST, [place], [facility]/pharmacy #[id number], This is NOT a routine chronic medication, 1 sprays Nares, Both 2 times a day, 166.9, cm, 08/09/22 13:41:00 EST, Height, 63,... Start Date: 08/09/22 Status: Ordered Plavix 75 mg oral tablet 75 mg, 1, tablet, By Mouth, Daily, # 30 tablet, Refills 1, Tot. Refills 1, Maintenance, 11/30/22 10:44:00 EDT, Route to Pharmacy Electronically, [facility]/pharmacy #[id number], Partial fill upon patient request if the prescription is for a schedule II opioid drug... Start Date: 11/30/22 Status: Ordered Synthroid 0.15 mg oral tablet 1 tablet = 150 mcg, By Mouth, Daily, NO SUBSTITUITION BRAND NAME ONLY, # 30 tablet, 6 Refills, Maintenance, 12/25/22 12:32:00 EDT, Tablet, [facility]/pharmacy #[id number], Partial fill upon patient request if theprescription is for a schedule II opioid drug., 167... Start Date: 12/25/22 Stop Date: 07/23/23 Status: Ordered Tylenol 325 mg oral capsule 2 capsule = 650 mg, By Mouth, Every 4 hours, PRN as needed for pain, # 50 tablet, 0 Refills, Maintenance, 08/11/21 15:51:00 EST, Capsule, [id number], Partial fill upon patient request if the [...] recent to oldest [Reference Range]: 1 Height 168 cm (11/30/22 9:48 AM) Weight 66.3 kg (11/30/22 9:48 AM) Oxygen Saturation [94-100 %] 98 % (11/30/22 9:48 AM) Pulse Rate [55-90 bpm] 53 bpm *L* (11/30/22 9:48 AM) Body Mass Index [18.5-24.99 kg/m2] 23.49 kg/m2 (11/30/22 9:48 AM) Blood Pressure [90-138/55-84 mm Hg] 92/6 2mm Hg (11/30/22 9:48 AM) Mode of Delivery (Oxygen) Room air (11/30/22 9:48 AM) Blood pressure sites Arm, left (11/30/22 9:48 AM) Social History Social History Type Response Smoking Status Former smoker, quit more than 30 days ago; Other: Started age 14. Smoked for 42 years. Quit around 05/2021 still smoking 2021 at least 42 pack years; entered on: 11/30/22 Sex Note * Yue Ryder: PERFORM, SIGN, VERIFY Event Display: Patient Education/Instruction Authored Date: [id number] [facility] *[facility] Adult [facility] Clinical Summary Name AVEL BELLAMY Age 62 Years 1960 PCP Eliza MCDUFFIE, Stephen Cao PCP Visit Date 11/30/2022 09:38:00 Additional Instructions: Scheduled Appointments?? Future Appointments ?*[facility] ?[address] ?[place],??[place],??[address] ?Phone:??--?Fax:??-- ?Appt. Date:??02/04/2023?10:30 AM ?Scheduled Provider:??Iván MCDUFFIE, Anum Follow-Up Instructions ?? Diagnosis Autoimmune thyroiditis; Diplopia; Hypothyroidism, unspecified Medications: Please continue your medications until treatment is completed or stopped by your provider. Discuss any questions related to medications with your provider. New Medications [facility]/pharmacy #[id number], [address] [place] [phone], [phone] Clopidogrel (Plavix 75 mg oral tablet) 1 tab(s) Oral Daily. Refills: 1. Next Dose: Medications to Continue Taking That Have Changed These medications were not printed or sent to your pharmacy - Aspirin (aspirin 81 mg oral tablet, chewable) 1 tab(s) Oral every other day. Refills: 0. Next Dose: Medications to Continue with No [...] use twice weekly. Refills: 11. Next Dose: Fluticasone Nasal (Flonase 50 mcg/inh nasal spray) 1 spray(s) Nares, Both twice a day. Refills: 0. Next Dose: Levothyroxine (Synthroid 0.15 mg oral tablet) 1 tab(s) Oral Daily for 30 Days. NO SUBSTITUITION BRAND NAME ONLY. Refills: 6. Next Dose: Allergy Info:?? Sulfite Allergy; Sulfur Medications Given This Visit Future Orders ?TSH with T4 Reflex (Adults Only)? Order Date:01/11/23?- Complete by?01/18/23 Vital Signs Height 168 cm Weight 66.3 kg BMI 23.49 kg/m2 Blood Pressure 92 mm Hg/62 mm Hg Temperature Pulse Rate 53 bpm Respiratory Rate 02 Sat Mode of Delivery 98 %/Room air You can now view a summary of your hospital visit from the comfort of your home through a free online portal called [employer]. [employer] is a website that allows you to securely view your medical information including discharge summary, medications and follow-up visits. ??You can alsosend a secure electronic message to your doctor???s office to request appointments, renew medications or just ask a question. You can enroll at [email or web address] or register during your next office [...] primary care provider, you may find a [facility] provider by calling [facility] at [phone]. For information about the plan of care including goals and instructions for your diagnosis, please see the patient education orders section of this document. Patient Education Materials?? The content of this educational material or handout may have been modified, supplemented, or adapted from its original content and format to support your individualized medical care. Additional Provider Instructions: get the SHINGRIX vaccine at the pharmacy get the PNEUMOVAX 20 vaccine after 2023 at the pharmacy or here get the flu shot in the Fall; ? COVID booster in the FALL decrease aspirin to every other day x 3 months and then stop stop PLAVIX after three months let me know if double vision returns Use EUCERIN CREAM for hands and forearms STOP SMOKING take thyroid every day recheck labs in 6 week JANUARY 12 Patient Care team information Care Team Personnel Name: Stephen Kay MD Position: [facility] Physician - Primary Care Member Role: PCP Address: Address: [address] [place] [address] Adult & [place] [address]- Care Team Related Persons Name: QUEENIE CARRANZA Address: home [address] [place] [address] Name: TYRONE CARRANZA Address: home [address] [place] [address]
--- OUTSIDE RECORDS SUMMARY | 2024-04-23 20:24 | XMS_ITS | Continuity of Care Document ---
Author Organization [facility] Address [address] [place] [address]- Care Team Providers Care Generator Operator Straight Bevel Gear Name Role Phone Stephen Kay MD Primary Care Physician [facility] Date[facility]s): 05/25/21 - 06/01/21 [facility] [address] [place], [place] [address] Attending Physician: Stephen Kay MD [...] Refills, Maintenance, 05/25/21 12:08:00 EST, [facility]t, [id number], Partial fill upon [...] 11 Refills, Maintenance, 03/10/21 12:39:00 EDT, Tablet, [facility]/pharmacy #[id number], 168.5, cm, 10/02/18 13:14:00 EDT, Height [...] oldest [Reference Range]: 1 Height 168.50 cm (05/25/21 11:36 AM) Weight 68.3 kg (05/25/21 11:36 AM) Oxygen Saturation [94-100 %] 99 % (05/25/21 11:36 AM) Pulse Rate [55-90 bpm] 86 bpm (05/25/21 11:36 AM) Body Mass Index [18.5-24.99] 24.06 (05/25/21 11:36 AM) Blood Pressure [90-138/55-84 mm Hg] 100/ 60mm Hg (05/25/21 11:36 AM) Social History Social History Type Response Smoking Status Current every day david beatty; Number of years: 42; Total pack years: 42; Started at age: 14; entered on: 12/27/16 Sex
--- OUTSIDE RECORDS SUMMARY | 2024-04-23 20:24 | XMS_ITS | Continuity of Care Document ---
Author Organization [facility] Address [address] [place] [address]- Care Team Providers Care Senior Energy Trader Name Role Phone Stephen Kay MD Primary Care Physician [phone] [place] [facility] [place]/01/22 - 03/31/23 [facility] [address] [place], [place] [address] Attending Physician: Stephen Kay MD [...] 0:00:00 EST, 08/07/22 11:15:00 EST, [facility], [id number], Partial fill upon patient request if the prescription is for... Start Date: 08/07/22 Stop Date: 08/07/25 Status: Ordered clobetasol 0.05% topical ointment 1 application, Topically, Every Saturday and , apply a thin film twice weekly in morning and evening,, # 60 Gm, 11 Refills, Acute 03/25/27 0:00:00 EDT, 08/07/25 0:00:00 EST, Ointment, [facility]/pharmacy #[id number], Partial fill upon patient request if the... Start Date: 08/07/25 Stop Date: 03/25/27 Status: Ordered Flonase 50 mcg/inh nasal spray 1 sprays, Nares, Both, 2 times a day, # 16 Gm, 0 Refills, Maintenance, 08/09/22 17:35:00 EST, [place], [facility]/pharmacy #[id number], This is NOT a routine chronic medication, 1 sprays Nares, Both 2 times a day, 166.9, cm, 08/09/22 13:41:00 EST, Height, 63,... Start Date: 08/09/22 Status: Ordered Synthroid 0.15 mg oral tablet 1 tablet, By Mouth, Daily, # 30 tablet, 6 Refills, Maintenance, 03/19/23 9:51:00 EDT, [id number], 168, cm, 11/30/22 9:48:00 EDT, Height, 65.8, kg, 11/23/22 12:48:00 EDT, Dry Weight Start Date: 03/19/23 Stop Date: 04/18/23 Status: Ordered Tylenol 325 mg oral capsule [...] Team Personnel Name: Stephen Kay MD Position: [facility] Physician - Primary Care Member Role: PCP Address: Address: [address] [place] [address] Adult [place] [address]- Care Team Related Persons Name: QUEENIE CARRANZA Address: home [address] [place] [address] Name: TYRONE CARRANZA Address: home [address] [place] [address]
--- OUTSIDE RECORDS SUMMARY | 2024-04-23 20:24 | XMS_ITS | Continuity of Care Document ---
Author Organization [facility] Address [address] [place] [address]- Care Team Providers Care Vacuum Spindle Sander Name Role Phone Eliza MCDUFFIE, Stephen Cao Primary Care Physician Encounter [facility] [place] Date(s): 08/02/21 - 08/09/21 [facility] [address] [place] [address] Attending Physician: Anum Minor MD Admitting Physician: Anum Minor MD Allergies, Adverse Reactions, Alerts Substance Reaction [...] Soft Stop, 06/15/21 18:31:00 EST, Tablet, [id number], Partial fill upon patient request if the [...] 11 Refills, Maintenance, 05/25/21 12:08:00 EST, Tablet, [facility]/pharmacy #[id number], Partial [...] 7 Refills, Maintenance, 07/06/21 13:28:00 EST, Tablet, [facility]/pharmacy #[id number], duplicate rx. original sent [...] cholesterol(Confirmed) Active Hypothyroidism(Confirmed) Active Vulvar lesion(Confirmed) Active Vulva cancer(Confirmed) Active Encounter for well woman exa m with abnormal findings(Confirmed) Active Tobacco use disorder(Confirmed) Active Vital Signs Most recent to oldest [Reference Range]: 1 Height 167.1 cm (08/02/21 3:43 PM) Weight 68.4 kg (08/02/21 3:43 PM) Oxygen Saturation [94-100 %] 98 % (08/02/21 3:43 PM) Pulse Rate [55-90 bpm] 87 bpm (08/02/21 3:43 PM) Body Mass Index [18.5-24.99] 24.5 (08/02/21 3:43 PM) Blood Pressure [90-138/55-84 mm Hg] 112/ 58mm Hg (08/02/21 3:43 PM) Temperature [96.8-100.4 DegF] 98.1 DegF (08/02/21 3:43 PM) Mode of Delivery (Oxygen) Room air (08/02/21 3:43 PM) Blood pressure sites Arm, left (08/02/21 3:43 PM) Temperature Route Temporal (08/02/21 3:43 PM) Weight Obtained Via Standing scale (08/02/21 3:43 PM) Social History Social History Type Response Smoking Status Former smoker, quit more than 30 days ago; Other: Started age 14. Smoked for 42 years. Quit around 05/2021; entered on: 07/27/21 Sex
--- OUTSIDE RECORDS SUMMARY | 2024-04-23 20:24 | XMS_ITS | Continuity of Care Document ---
Author Organization [facility] ter Address [address] [place] [address]- Care Team Providers Care Head Cashier Name Role Phone Stephen Kay MD Primary Care Physician [phone] Encounter [facility] [place] Date(s): 09/22/21 - 09/23/[address] [address]- Discharge Disposition: A-Transfer VNA/Home Health Attending Physician: Anum Minor MD Admitting Physician: Anum Minor MD Referring Physician: Anum Minor MD Allergies, Adverse Reactions, [...] 2Result Comment: [12/27/2016] given without incident.....vs Medications Acetaminophen Tablet 975 mg, Tablet, By Mouth, 09/22/21 23:00:00 EST Start Date: 09/22/21 Stop Date: 09/22/21 Status: Completed betamethasone topical dipropionate 0.05% lotion See Instructions, Topically 2 times a day, # 20 mL, 0 Refills, Maintenance, 09/23/21 10:33:00 EST, Lotion, [facility]/pharmacy #[id number], Partial fill upon patient request if the prescription is for a schedule II opioid drug., Topically 2 times a day, 167.64, cm... Start Date: 09/23/21 Status: Ordered ibuprofen 800 mg oral tablet 800 mg, 1, tablet, By Mouth, Every 8 hours, # 40 tablet, Refills 0, Tot. Refills 0, Maintenance, 08/11/21 15:50:00 EST, Route to Pharmacy Electronically, [facility]/pharmacy #[id number], Partial fill upon patientrequest if the prescription is for a schedule II op... Start Date: 08/11/21 Status: Ordered lidocaine 2% topical gel with applicator 5 mL = 0.1 Gm, Topically, Once, Apply 30 mins prior to scheduled vulvar procedure, # 10 mL, 0 Refills, Soft Stop, 09/06/21 10:36:00 EST, Gel, [facility]/pharmacy #[id number], Partial fill upon patient request if the prescription is for a schedule II opioid drug.,... Start Date: 09/06/21 Status: Ordered Lipitor 20 mg oral tablet 1 tablet = 20 mg, By Mouth, Daily, # 30 tablet, 11 Refills, Maintenance, 05/25/21 12:08:00 EST, Tablet, [facility]/pharmacy #[id number], Partial fill upon patient request if [...] Refills, Maintenance, 07/06/21 13:28:00 EST, Tablet, [facility]/pharmacy #[id number], duplicate rx. original sent 03/09/21. remaining r... Start Date: 07/06/21 Stop Date: 03/03/22 Status: Ordered Tylenol 325 mg oral capsule 2 capsule = 650 mg, By Mouth, Every 4 hours, PRN as needed for pain, # 50 tablet, 0 Refills, Maintenance, 08/11/21 15:51:00 EST, Caps[facility], [id number], Partial fill upon patient request if the [...] oldest [Reference Range]: 1 2 3 Height 167.64 cm (09/23/21 7:29 AM) 167.64 cm (09/22/21 11:49 PM) 167.64 cm (09/22/21 8:00 PM) Weight 65.3 kg (09/22/21 6:18 PM) 64.8 kg (09/22/21 11:13 AM) 66.36 kg (09/14/21 1:41 PM) Oxygen Saturation [94-100 %] 92 % *L* (09/23/21 7:29 AM) 96 % (09/23/21 3:00 AM) 93 % *L* (09/22/21 11:49 PM) Pulse Rate [55-90 bpm] 75 bpm (09/23/21 7:29 AM) 56 bpm (09/23/21 3:00 AM) 100 bpm *H* (09/22/21 11:49 PM) Body Mass Index [18.5-24.99] 23.24 (09/22/21 6:18 PM) 23.06 (09/22/21 11:13 AM) 23.61 (09/14/21 1:41 PM) Blood Pressure [90-138/55-84 mm Hg] 98/58mm Hg (09/23/21 7:29 AM) 103/53mm Hg (09/23/21 3:00 AM) 95/60mm Hg (09/22/21 11:49 PM) Respiratory Rate [16-30 br/min] 17 br/min (09/23/21 7:29 AM) 18 br/min (09/23/21 3:00 AM) 18 br/min (09/23/21 12:00 AM) Temperature [96.8-100.4 DegF] 98.1 DegF (09/23/21 7:29 AM) 97.8 DegF (09/23/21 3:00 AM) 97.8 DegF (09/22/21 11:49 PM) Liters per Minute 0 L/min (09/22/21 6:18 PM) 2 L/min (09/22/21 5:45 PM) 2 L/min (09/22/21 4:00 PM) Mode of Delivery (Oxygen) Room air (09/23/21 7:29 AM) Room air (09/23/21 3:00 AM) Room air (09/22/21 11:49 PM) Blood pressure sites Arm, right (09/23/21 7:29 AM) Arm, right (09/23/21 3:00 AM) Arm, right (09/22/21 11:49 PM) Temperature Route Oral (09/23/21 7:29 AM) Oral (09/23/21 3:00 AM) Oral (09/22/21 11:49 PM) Dry Weight 65.3 kg (09/22/21 6:18 PM) 66.36 kg (09/14/21 1:41 PM) Weight Obtained Via Standing scale (09/22/21 11:13 AM) Patient/family stated (09/14/21 1:41 PM) Dry Weight Obtained Via Patient/family s tated (09/14/21 1:41 PM) Social History Social History Type Response Smoking Status Former smoker, quit more than 30 days ago; Other: Started age 14. Smoked for 42 years. Quit around 05/2021; entered on: 07/27/21 Sex
--- OUTSIDE RECORDS SUMMARY | 2024-04-23 20:24 | XMS_ITS | Continuity of Care Document ---
Author Organization [facility] Address [address] [place] [address]- Care Team Providers Care Agricultural Aircraft Pilot Name Role Phone Stephen Kay MD Primary Care Physician [phone] [place] [facility] [place] 12/25/22 - 01/24/23 [facility] [address] [place], [place] [address] Allergies, Adverse Reactions, Alerts Substance Reaction [...] ointment 1 application, Topically, Every Saturday and Thursday, apply a thin film use twice weekly, # 60 Gm, 11 Refills, Acute 08/07/25 0:00:00 EST, 08/07/22 11:15:00 EST, Ointment, [facility]/pharmacy #[id number], Partial fill upon patient request if the prescription is for... Start Date: 08/07/22 Stop Date: 08/07/25 Status: Ordered Flonase 50 mcg/inh nasal spray 1 sprays, Nares, Both, 2 times a day, # 16 Gm, 0 Refills, Maintenance, 08/09/22 17:35:00 EST, [place], [id number], This is NOT a routine [...] Team Personnel Name: Stephen Kay MD Position: [facility] Physician - Primary Care Member Role: PCP Address: Address: [address] [place] [address] Adult [place] [address]- Care Team Related Persons Name: QUEENIE CARRANZA Address: home [address] [place] [address] Name: TYRONE CARRANZA Address: home [address] [place] [address]
--- OUTSIDE RECORDS SUMMARY | 2024-04-23 20:24 | XMS_ITS | Continuity of Care Document ---
Author Organization [facility] Address [address] [place] [address]- Care Team Providers Care Felting Machine Operator Name Role Phone Stephen Kay MD Primary Care Physician [phone] Encounter [facility] [place] Date(s): 06/15/21 - 07/15/21 [facility] [address] [place], [place] [address] Attending Physician: Admtr, Luz Elena Admitting Physician: [...] Soft Stop, 06/15/21 18:31:00 EST, Tablet, [id number], Partial fill upon patient request if the [...] Refills, Maintenance, 05/25/21 12:08:00 EST, Tablet, [facility]/pharmacy #[id number], Partial fill upon patient request if [...] Refills, Maintenance, 07/06/21 13:28:00 EST, Tablet, [facility]/pharmacy #[id number], duplicate rx. original sent 03/09/21. remaining [...] Type Response Smoking Status Current every day sm adrianaer; Number of years: 42; Total pack years: 42; Started at age: 14; entered on: 12/27/16 Sex
--- OUTSIDE RECORDS SUMMARY | 2024-04-23 20:24 | XMS_ITS | Continuity of Care Document ---
Author Organization [facility] Address [address] [place] [address]- Care Team Providers Care Laser Cutter Name Role Phone Stephen Kay MD Primary Care Physician [phone] [place] [facility] [place]15[place]21 - 06/22/21 [facility] [address] [place] [address]- Encounter Diagnosis Cough(Discharge Diagnosis) - 06/15/21 Attending Physician: Tomy Youssef MD Referring Physician: Stephen Kay MD Allergies, [...] Soft Stop, 06/15/21 18:31:00 EST, Tablet, [id number], Partial fill upon patient request if the [...] 11 Refills, Maintenance, 05/25/21 12:08:00 EST, Tablet, [facility]/pharmacy #[id number], Partial fill upon patient request [...] 11 Refills, Maintenance, 03/10/21 12:39:00 EDT, Tablet, [facility]/pharmacy #[id number], 168.5, cm, 10/02/18 13:14:00 EDT, Height [...] Active Hypothyroidism(Confirmed) Active Tobacco use disorder(Confirmed) Active Diagnosis Diagnosis Type Effective Dates Health Status Clini regina Service Informant Cough Discharge Diagnosis 06/15/21 Social History Social History Type Response Smoking Status Current every day david beatty; Number of years: 42; Total pack years: 42; Started at age: 14; entered on: 12/27/16 Sex
--- OUTSIDE RECORDS SUMMARY | 2024-04-23 20:24 | XMS_ITS | Continuity of Care Document ---
Author Organization [facility] Address [address] [place] [address]- Care Team Providers Care Credit Union Teller Name Role Phone Stephen Kay MD Primary Care Physician Encounter [facility] [place] Date(s): 09/05/21 - 10/05/21 [facility] [address] [place] [address]- Allergies, Adverse Reactions, Alerts Substance Reaction Severity [...] mL, 0 Refills, Maintenance, 09/23/21 10:33:00 EST, T[facility]ion, [id number], Partial fill upon patient request if the prescription is for a schedule II opioid drug., Topically 2 times a day, 167.64, cm... Start Date: 09/23/21 Status: Ordered ibuprofen 800 mg oral tablet 800 mg, 1, tablet, By Mouth, Every 8 hours, # 40 tablet, Refills 0, Tot. Refills 0, Maintenance, 08/11/21 15:50:00 EST, Route to Pharmacy Electronically, [facility]/pharmacy #[id number], Partial fill upon patientrequest if the prescription is for a schedule II op... Start Date: 08/11/21 Status: Ordered lidocaine 2% topical gel with applicator 5 mL = 0.1 Gm, Topically, Once, Apply 30 mins prior to scheduled vulvar procedure, # 10 mL, 0 Refills, Soft Stop, 09/06/21 10:36:00 EST, Gel, [facility]/pharmacy #[id number], Partial fill upon patient request if the prescription is for a schedule II opioid drug.,... Start Date: 09/06/21 Status: Ordered Lipitor 20 mg oral tablet 1 tablet = 20 mg, By Mouth, Daily, # 30 tablet, 11 Refills, Maintenance, 05/25/21 12:08:00 EST, Tablet, [facility]/pharmacy #[id number], Partial [...] Refills, Maintenance, 07/06/21 13:28:00 EST, Tablet, [facility]/pharmacy #[id number], duplicate rx. original sent 03/09/21. [...]
--- OUTSIDE RECORDS SUMMARY | 2024-04-23 20:24 | XMS_ITS | Continuity of Care Document ---
Author Organization [facility] Address [address] [place] [address]- Care Team Providers Care Restaurant Server Name Role Phone Stephen Kay MD Primary Care Physician Encounter [facility] [place] Date(s): 11/30/21 - 12/30/21 [facility] [address] [place], [place] [address] Allergies, Adverse Reactions, Alerts Substance [...] 7 Refills, Maintenance, 07/06/21 13:28:00 EST, Tablet, [facility]/pharmacy #[id number], duplicate rx. original sent 03/09/21. [...]
--- OUTSIDE RECORDS SUMMARY | 2024-04-23 20:24 | XMS_ITS | Continuity of Care Document ---
Author Organization [facility] Address [address] [place] [address]- Care Team Providers Care Pediatric Cns Name Role Phone Stephen Kay MD Primary Care Physician Encounter [facility] Date(s): 01/13/24 - 01/20/24 [facility] [address] [place], [place] [address] Attending Physician: Stephen Kay MD Allergies, [...] Refills, Maintenance, 11/15/23 10:53:00 EDT, [id number], 25, APPLY 1 APPLICATION TOPICALLY EVERY SATURDAY [...] oldest [Reference Range]: 1 Height 168 cm (01/13/24 11:23 AM) Weight 71.3 kg (01/13/24 11:23 AM) Oxygen Saturation [94-100 %] 97 % (01/13/24 11:23 AM) Pulse Rate [55-90 bpm] 85 bpm (01/13/24 11:23 AM) Body Mass Index [18.5-24.99 kg/m2] 25.26 kg/m2 *H* (01/13/24 11:23 AM) Blood Pressure [90-138/55-84 mm Hg] 118/ 60mm Hg (01/13/24 11:23 AM) Mode of Delivery (Oxygen) Room air (01/13/24 11:23 AM) Blood pressure sites Arm, left (01/13/24 11:23 AM) Dry Weight 71.3 kg (01/13/24 11:23 AM) Weight Obtained Via Standing scale (01/13/24 11:23 AM) Social History Social History Type Response Smoking Status 10 or more cigarette s (1/2 pack or more)/day in last 30 days entered on: 06/25/23 Sex Note * Nina Davison: PERFORM Event Display: Patient Education/Instruction Authored Date: Ambulatory Adult Visit Summary [facility] [place] [address] Name: AVEL BELLAMY : 1960?? Visit: 01/13/2024 10:58?? Ambulatory Visit Instructions ?? Your Care Team Primary Care Provider Stephen Kay MD? 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 Arthritis ??Acetominophen and ??take TWO ??tablets every EIGHT hours ?? along ??with ONE Aleve 220 mgs. Be sure to ??take ??the ??three ??pills ??with ??food. Do not ??take ??the ??Aleve for ??any more than ??7-10 days ? STOP ??THE ??ADVIL ? Start ??PEPCID ??( ??famotidine ??) ??20 ??mgs ??per ??day ?? Future Orders TSH - Once, *Est. 08/08/23 +/- 7 days, Single or Recurring Future Order?? Free T4 (T4 Free) - Once, *Est. 08/08/23 +/- 7 days, Single or Recurring Future Order?? AST - Once, *Est. 07/24/23, Future Order?? Lipid Panel - Once, FAST ??for ??12 hours ?? before going ??to ??the ??lab, *Est. 07/24/23, Single or Recurring Future Order?? Glucose Level - Routine, Once, 01/13/24 12:10:00 EDT, Single or Recurring Future Order, [facility], Blood?? Medications The list below reflects the information in our records and provided by you today along with any changes made during this visit. Please continue your medications until treatment is completed or stopped by your provider. If this is different from the information you have or there are other questions,please contact the prescribing provider. What How Much When Instructions Unchanged Acetaminophen (Tylenol 325 mg oral capsule) 2 capsule Oral Every 4 hours as needed for as needed for pain Unchanged Atorvastatin (atorvastatin 20 mg oral tablet) 1 tab(s) Oral Daily Unchanged Clobetasol Topical (clobetasol 0.05% topical ointment) See instructions APPLY 1 APPLICATION TOPICALLY EVERY SATURDAY AND SATURDAY, APPLY A THIN FILM USE TWICE WEEKLY ?? Unchanged Levothyroxine (Synthroid 0.15 mg oral tablet) See instructions 1 tablet from Saturday to Saturday and two tablets on Saturday ? What How Much When Comments Stop Taking Albuterol (Albuterol (Eqv-ProAir HFA) 90 mcg/ inh inhalation aerosol) See instructions INHALE 2 PUFFS INTO LUNGS EVERY 6 HOURS NEEDED FOR WHEEZING/ SHORTNESS OF BREATH ?? Stop Taking Albuterol (ProAir HFA 90 mcg/ inh inhalation aerosol with adapter) 2 puff(s) Inhalation Every 6 hours as needed for Wheezing/Shortness of Breath Stop Taking Fluticasone Nasal (Flonase 50 mcg/ inh nasal spray) 1 spray(s) Nares, Both Twice a day Test Performed Below is a partial list of the tests performed during your Visit. You may have had other tests and procedures not included in this list. Please discuss all test results with your provider. Glucose Level?-- Results Pending -- You will be contacted within 72 hours with your results. Medications and Immunizations Administered Medications Given During Visit No medications given during this visit.?? Allergies (NKA means No Known Allergies) Sulfite Allergy??(anaphylaxis) Sulfur??(anaphylaxis) rosuvastatin??(severe myalgia ( not with lipitor )) Common Emergency Awareness Tips IS IT A [...] are strongly encouraged to quit. Please call [facility] at [phone] or [phone] ([phone]) or log in to [email or web address] for referrals to smoking cessation programs. ?? The National Suicide Prevention Hotline is available 04/02 if you or someone you know needs to find a reason to keep living. By calling 4-662-638-talk (8255) you'll be connected to a skilled, trained counselor at a crisis center in your area. [facility] orderTalk Portal You can view and manage your care through the patient portal or by using a health care sharla of your choosing. [employer] is a website that allows you to securely view your medical information including your hospital discharge summary, office visit summaries, medications and follow-up visits. You can also request appointments, renew medications, and request access to your medical information using a health care sharla of your choosing, or just ask a question. You can enroll at [email or web address] or register during your next office visit. [facility], in keeping with [facility] guidance, no longer requires face masks for staff, patientsor visitors in most situations. Similiar to time spent indoors at other locations, there is the chance that you were exposed to repiratory viruses during your time with us (such as flu or COVID-19). If you develop symptoms concerning for a viral respiratory infection, please seek testing (and treatment if indicated) from your medical provider or home test kit. ?? Disclaimer: The information provided is of a general nature and is intended to be used in conjunction with the recommendations and advice of your health care practitioner. Every effort has been made to ensure that the information provided is accurate and complete at the time it is provided to you however, as your needs change, or, as new information becomes available, different or additional instructions may be required. ?? If you have questions, please consult with your primary care provider or pharmacist, as appropriate. This information is not intended to serve as substitution for assessment and evaluation by a qualified health care provider. If you do not have a primary care provider, you may find a [facility] provider by calling [facility] orderTalk Link at [phone]. Patient Care team information Care Team Personnel Name: Stephen Kay MD Position: [facility] Physician - Primary Care Member Role: PCP Address: Address: [address] [place] [address] Adult [place] [address]- Care Team Related Persons Name: QUEENIE CARRANZA Address: home [address] [place] [address] Name: TYRONE CARRANZA Address: home [address] [place] [address]
--- OUTSIDE RECORDS SUMMARY | 2024-04-23 20:24 | XMS_ITS | Continuity of Care Document ---
Author Organization [facility] Address [address] [place] [address]- Care Team Providers Care Configuration Consultant Name Role Phone Eliza MCDUFFIE, Stephen Cao Primary Care Physician Encounter [facility] [place] Date(s): 01/27/20 - 02/26/20 [facility] [address] [place] [address]- [facility] Attending Physician: Luz Elena Berry Admitting Physician: AdmLuz Elena grant Referring Physician: AdmtrLuz Elena Allergies, Adverse Reactions, Alerts Substance Reaction Severity [...] Gm, 0 Refills, Maintenance, 02/20/18 9:42:10 EDT, [place],1 sprays Nares, Both 2 times a day [...] 03/15/20 12:39:00 EDT, 12/16/19 12:39:00 EDT, Tablet, [facility]/pharmacy #[id number], 168.5, cm, 0... Start Date: 12/16/19 Stop Date: 03/15/20 Status: Ordered Synthroid 137 mcg (0.137 mg) oral tablet 1 tablet = 137 mcg, By Mouth, Daily, take an 2 tablets on Sundays; NO SUBSTITUTIONS; BRAND NAME MEDICALLY NECESSARY, # 110 tablet, 3 Refills, Maintenance, 03/15/20 12:39:00 EDT, Tablet, [facility]/pharmacy #[id number], 168.5, cm, 10/02/18 13:14:00 EDT, Height [...] Response Smoking Status Current every day sm oker; Number of years: 42; Total pack years: 42; Started at age: 14; entered on: 12/27/16 Sex
--- OUTSIDE RECORDS SUMMARY | 2024-04-23 20:24 | XMS_ITS | Continuity of Care Document ---
Author Organization [facility] Address [address] [place] [address]- Care Team Providers Care Ent Consultant Name Role Phone Stephen Kay MD Primary Care Physician Encounter [facility] Date(s): 07/25/21 - 08/24/21 [facility] [address] [place] [address]- Allergies, Adverse Reactions, Alerts Substance Reaction Severity [...] 08/11/21 15:50:00 EST, Route to Pharmacy Electronically, [facility]/pharmacy #[id number], Partial fill upon patientrequest if the prescription is for a schedule II op... Start Date: 08/11/21 Status: Ordered Lipitor 20 mg oral tablet 1 tablet = 20 mg, By Mouth, Daily, # 30 tablet, 11 Refills, Maintenance, 05/25/21 12:08:00 EST, Tablet, [facility]/pharmacy #[id number], Partial fill upon patient request if the prescription is for a schedule II opioid drug., 168.5, cm, 05/25/21 11:36:00 EST, Height Start Date: 05/25/21 Status: Ordered MiraLax oral powder for reconstitution = 17 Gm, By Mouth, Daily, dissolve in water before taking, # 255 Gm, 0 Refills, Maintenance, 08/11/21 15:51:00 EST, REC Powder, [facility]/pharmacy #[id number], Partial fill upon patient request if the prescription is for a schedule II opioid drug., 17 Gm By Mouth... Start Date: 08/11/21 Status: Ordered Multivitamin By Mouth, Daily in AM, 0 Refills, Maintenance, 07/27/21 14:48:00 EST, Partial fill upon patient request if the prescription is for a schedule II opioid drug. Start Date: 07/27/21 Status: Ordered oxyCODONE 5 mg oral capsule 1 capsule = 5 mg, By Mouth, Every 6 hours, PRN as needed for pain, # 5 capsule, 0 Refills, Maintenance, 08/11/21 15:51:00 EST, Capsule, [facility]/pharmacy #[id number], Partial fill upon patient request if the prescription is for a schedule II opioid drug., 167.64... Start Date: 08/11/21 Status: Ordered Synthroid 137 mcg (0.137 mg) [...] EST, Capsule, [facility]/pharmacy #[id number], Partial fill upon patient request if the [...] Vulva cancer(Confirmed) Active Encounter for well woman pastora mendoza with abnormal findings(Confirmed) Active Tobacco use disorder(Confirmed) Active Social History Social History Type Response Smoking Status Former smoker, quit more than 30 days ago; Other: Started age 14. Smoked for 42 years. Quit around 05/2021; entered on: 07/27/21 Sex
--- OUTSIDE RECORDS SUMMARY | 2024-04-23 20:24 | XMS_ITS | Continuity of Care Document ---
Author Organization [facility] Address [address] [place] [address]- Care Team Providers Care Powerhouse Mechanic Helper Name Role Phone Eliza MCDUFFIE, Stephen Cao Primary Care Physician [phone] Encounter [facility] Date(s): 12/09/21 - 01/08/22 [facility] [address] [place] [address] [place] Allergies, Adverse Reactions, Alerts [...] 7 Refills, Maintenance, 07/06/21 13:28:00 EST, Tablet, [facility]/pharmacy #[id number], duplicate rx. original sent 03/09/21. [...]
--- OUTSIDE RECORDS SUMMARY | 2024-04-23 20:24 | XMS_ITS | Continuity of Care Document ---
Author Organization [facility] Address [address] [place] [address]- Care Team Providers Care Medical Transcription Radiology Name Role Phone Eliza MCDUFFIE, Stephen Cao Primary Care Physician [phone] Encounter [facility] Date(s): 07/06/21 - 08/05/21 [facility] [address] [place] [id number] Allergies, Adverse Reactions, Alerts Substance [...] Soft Stop, 06/15/21 18:31:00 EST, Tablet, [id number], Partial fill upon patient request if the [...] Refills, Maintenance, 05/25/21 12:08:00 EST, Tablet, [facility]/pharmacy #[id number], Partial fill upon patient request if [...] 7 Refills, Maintenance, 07/06/21 13:28:00 EST, Tablet, [facility]/pharmacy #[id number], duplicate rx. original sent 03/09/21. remaining [...]
--- OUTSIDE RECORDS SUMMARY | 2024-04-23 20:24 | XMS_ITS | Continuity of Care Document ---
Author Organization [facility] Address [address] [place] [address]- Care Team Providers Care Receiving Team Member Name Role Phone Stephen Kay MD Primary Care Physician Encounter [facility] [place] Date(s): 07/27/21 - 08/26/21 [facility] [address] [place] [address]- Attending Physician: Admtr, [id number] Admitting Physician: Admtr, [id number] Referring Physician: Admtr, [...] 2Result Comment: [12/27/2016] given without incident.....vs Medications Engerix-B 20 mcg/mL intramuscular suspension 1 mL [...] 08/11/21 15:50:00 EST, Route to Pharmacy Electronically, [facility]/pharmacy #[id number], Partial fill upon patientrequest if the prescription is for a schedule II op... Start Date: 08/11/21 Status: Ordered Lipitor 20 mg oral tablet 1 tablet = 20 mg, By Mouth, Daily, # 30 tablet, 11 Refills, Maintenance, 05/25/21 12:08:00 EST, Tablet, [facility]/pharmacy #[id number], Partial fill upon [...] 7 Refills, Maintenance, 07/06/21 13:28:00 EST, Tablet, [facility]/pharmacy #[id number], duplicate rx. original sent 03/09/21. remaining r... Start Date: 07/06/21 Stop Date: 03/03/22 Status: Ordered Tylenol 325 mg oral capsule 2 capsule = 650 mg, By Mouth, Every 4 hours, PRN as needed for pain, # 50 tablet, 0 Refills, Maintenance, 08/11/21 15:51:00 EST, Capsule, [facility]/pharmacy #[id number], Partial fill upon [...]
--- OUTSIDE RECORDS SUMMARY | 2024-04-23 20:24 | XMS_ITS | Continuity of Care Document ---
Author Organization [facility] Address [address] [place] [address]- Care Team Providers Care Bee Keeper Name Role Phone Stephen Kay MD Primary Care Physician [phone] [place] [facility] Date(s): 07/27/21 - 08/03/21 [facility] [address] [place] [address]- Attending Physician: Naheed Ibarra MD Referring Physician: Stephen Kay MD Allergies, [...] Soft Stop, 06/15/21 18:31:00 EST, Tablet, [id number], Partial fill upon patient request if the [...] 11 Refills, Maintenance, 05/25/21 12:08:00 EST, Tablet, [facility]/pharmacy #[id number], Partial fill upon patient request [...] ovarian cancer(Confirmed) Active Hx of migraines(Confirmed) Active Nevilel's thyroiditis wity mulltiple nodules(Confirmed) 12/26/16 Active History of uterine fibroid(Confirmed) Active Hx of squamous cell carcinom a of skin(Confirmed) Active High cholesterol(Confirmed) Active Hypothyroidism(Confirmed) Active Vulvar lesion(Confirmed) Active Encounter for well woman exa m with abnormal findings(Confirmed) Active Tobacco use disorder(Confirmed) Active Procedures Procedure Date Related Diagnosis Body Site Status 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 Smoked for 42 years. Quit around 05/2021; entered on: 07/27/21 Sex
--- OUTSIDE RECORDS SUMMARY | 2024-04-23 20:24 | XMS_ITS | Continuity of Care Document ---
Author Organization [facility] Address [address] [place] [id number] Care Team Providers Care Straddle Carrier Operator Name Role Phone Stephen Kay MD Primary Care Physician Encounter [facility] [place] Date(s): 08/30/21 - 09/06/21 [facility] [employer] [facility] On[facility] [address] [place] [id number] Attending Physician: Anum Minor MD Admitting Physician: [...] 06/06/22 0:00:00 EST, 09/06/21 10:29:00 EST, Ointment, [facility]/pharm... Start Date: 09/06/21 Stop Date: 06/06/22 Status: [...] 08/11/21 15:50:00 EST, Route to Pharmacy Electronically, [facility]/pharmacy #[id number], Partial fill upon patientrequest if the prescription is for a schedule II op... Start Date: 08/11/21 Status: Ordered lidocaine 2% topical gel with applicator 5 mL = 0.1 Gm, Topically, Once, Apply 30 mins prior to scheduled vulvar procedure, # 10 mL, 0 Refills, Soft Stop, 09/06/21 10:36:00 EST, Gel, [facility]/pharmacy #[id number], Partial fill upon patient request if the prescription is for a schedule II opioid drug.,... Start Date: 09/06/21 Status: Ordered Lipitor 20 mg oral tablet 1 tablet = 20 mg, By Mouth, Daily, # 30 tablet, 11 Refills, Maintenance, 05/25/21 12:08:00 EST, Tablet, [facility]/pharmacy #[id number], Partial fill upon patient request [...] 7 Refills, Maintenance, 07/06/21 13:28:00 EST, Tablet, [facility]/pharmacy #[id number], duplicate rx. original sent 03/09/21. remaining r... Start Date: 07/06/21 Stop Date: 03/03/22 Status: Ordered Tylenol 325 mg oral capsule 2 capsule = 650 mg, By Mouth, Every 4 hours, PRN as needed for pain, # 50 tablet, 0 Refills, Maintenance, 08/11/21 15:51:00 EST, Capsule, [facility]/pharmacy #[id number], Partial fill upon patient request if the [...] woman exa m with abnormal findings(Confirmed) Active Severe obesity(Confirmed) Active Tobacco use disorder(Confirmed) Active Vital Signs Most recent to oldest [Reference Range]: 1 Height 167 cm (08/30/21 2:21 PM) Weight 151 kg (08/30/21 2:21 PM) Oxygen Saturation [94-100 %] 99 % (08/30/21 2:21 PM) Pulse Rate [55-90 bpm] 81 bpm (08/30/21 2:21 PM) Body Mass Index [18.5-24.99] 54.14 *>HHI* (08/30/21 2:21 PM) Blood Pressure [90-138/55-84 mm Hg] 114/ 86mm Hg (08/30/21 2:21 PM) Temperature [96.8-100.4 DegF] 98.7 DegF (08/30/21 2:21 PM) Mode of Delivery (Oxygen) Room air (08/30/21 2:21 PM) Blood pressure sites Arm, right (08/30/21 2:21 PM) Temperature Route Temporal (08/30/21 2:21 PM) Weight Obtained Via Standing scale (08/30/21 2:21 PM) Social History Social History Type Response Smoking Status Former smoker, quit more than 30 days ago; Other: Started age 14. Smoked for 42 years. Quit around 05/2021; entered on: 07/27/21 Sex
--- OUTSIDE RECORDS SUMMARY | 2024-04-23 20:24 | XMS_ITS | Continuity of Care Document ---
Author Organization [facility] Address [address] [place] [id number] Care Team Providers Care Button And Buckle Maker Name Role Phone Stephen Kay MD Primary Care Physician [phone] Encounter [facility] [place] Date(s): 11/15/21 - 12/15/21 [facility] [address] [place] [id number] Attending Physician: Admtr, [id number] Admitting [...] 7 Refills, Maintenance, 07/06/21 13:28:00 EST, Tablet, [facility]/pharmacy #[id number], duplicate rx. original sent 03/09/21. [...] Active Hx of migraines(Confirmed) Active Neville's thyroiditis melanie trinidade nodules(Confirmed) 12/26/16 Active History of uterine fibroid(Confirmed) [...]
--- OUTSIDE RECORDS SUMMARY | 2024-04-23 20:24 | XMS_ITS | Continuity of Care Document ---
Author Organization [facility] Address [address] [place] [address]- Care Team Providers Care Network Controller Name Role Phone Stephen Kay MD Primary Care Physician Encounter [facility] Date(s): 11/22/22 - 11/22/[address] [address]- Discharge Disposition: A-D/C Home Attending Physician: Jesus Martinez MD Admitting Physician: Jesus Martinez MD Referring Physician: Not on Staff, [...] chewable 81 mg, 1, tablet, By Mouth, Daily, # 30 tablet, Refills 0, Tot. Refills 0, Maintenance, 11/22/22 17:09:00 EDT, Route to Pharmacy Electronically, [facility]/pharmacy #[id number], Partial fill upon patient request if the prescription is for a schedule II opioid drug... Start Date: 11/22/22 Status: Ordered Clobetasol (Eqv-Temovate) [...] 0:00:00 EST, 08/07/22 11:15:00 EST, Ointment, [facility]/pharmacy #[id number], Partial fill upon patient request if the prescription is for... Start Date: 08/07/22 Stop Date: 08/07/25 Status: Ordered Flonase 50 mcg/inh nasal spray 1 sprays, Nares, Both, 2 times a day, # 16 Gm, 0 Refills, Maintenance, 08/09/22 17:35:00 EST, [place], [facility]/pharmacy #[id number], This is NOT a routine chronic medication, 1 sprays Nares, Both 2 times a day, 166.9, cm, 08/09/22 13:41:00 EST, Height, 63,... Start Date: 08/09/22 Status: Ordered Plavix 75 mg oral tablet 75 mg, 1, tablet, By Mouth, Daily, # 30 tablet, Refills 0, Tot. Refills 0, Maintenance, 11/22/22 17:09:00 EDT, Route to Pharmacy Electronically, [facility]/pharmacy #[id number], Partial fill upon patient request if the prescription is for a schedule II opioid drug... Start Date: 11/22/22 Status: Ordered Synthroid 0.15 mg oral tablet 1 tablet = 150 mcg, By Mouth, Daily, for 30 days, # 30 tablet, 6 Refills, Hard Stop 12/25/22 12:32:00 EDT, 05/29/22 12:32:00 EST, Tablet, [facility]/pharmacy #[id number], Partial fill upon patient request if the prescription is for a schedule II opioid drug., 167.... Start Date: 05/29/22 Stop Date: 12/25/22 Status: Ordered Synthroid 0.15 mg oral tablet 1 tablet = 150 mcg, By Mouth, Daily, NO SUBSTITUITION BRAND NAME ONLY, # 30 tablet, 6 Refills, Maintenance, 12/25/22 12:32:00 EDT, Tablet, [facility]/pharmacy #[id number], Partial fill upon patient request if theprescription is for a schedule II opioid drug., 167... Start Date: 12/25/22 Stop Date: 07/23/23 Status: Ordered Tylenol 325 mg oral capsule 2 capsule = 650 mg, By Mouth, Every 4 hours, PRN as needed for pain, # 50 tablet, 0 Refills, Maintenance, 08/11/21 15:51:00 EST, Capsule, [facility]/pharmacy #[id number], Partial fill upon patient request [...] Exam Date Time Procedure Performing Provider Status 11/22/22 4:08 PM Chest Portable Isha Garcia; Au th (Verified) Notes: (Chest Portable) Reason For Exam: Stroke;Other: RESULT: Chest Portable Chest Portable REASON: Stroke. Clinical Question(s): CHF. COMPARISON: 07/31/2022, 07/23/2022 FINDINGS: LINES AND TUBES: None. LUNGS AND PLEURA: Mild bibasilar atelectasis. Normal pulmonary vascularity. No pleural effusion. No pneumothorax. HEART, MEDIASTINUM AND ANGÉLICA: Heart is normal in size. Normal mediastinal and hilar contour. BONES AND SOFT TISSUES: No acute abnormality. IMPRESSION: No evidence of acute abnormality. I have personally reviewed the images and I agree with this report. WSN: [id number] Ordering Physician: Jesus Martinez Dictated By: Joseluis Alicia MD Dictated Date/Time: 11/22/22 4:17 pm Reviewed By: Gerardo Kim MD Signed By: Gerardo Kim MD Signed Date/Time: 11/22/22 4:22 pm Transcribed By: DELMER Transcribed Date/Time: 11/22/22 4:13 pm * Exam Date Time Procedure Performing Provider Status 11/22/22 2:[address] Angio Neck Hyperacute Stroke Nuno Lopez; Jim (Verified) Notes: (CT Angio Neck Hyperacute Stroke) Reason For Exam: Aneurysm, neck vessel(s);Other: RESULT: CT Angio Neck Hyperacute Stroke CT Angio Head Hyperacute Stroke, CT Angio Neck Hyperacute Stroke Reason: Other:; dizzy diplopia Neuro deficit, acute, stroke suspected; Clinical Question(s): Other:; Hematoma Aneurysm / Other: TECHNIQUE: CT angiogram of the head and neck was performed after bolus administration of intravenous contrast. 75 mL of Omnipaque 300 was administered intravenously. Coronal and sagittal MIP reformatted images were obtained. Additional 3-D images were created on a separate workstation under concurrent supervision by the attending radiologist. All stenoses are measured using NASCET criteria. Weight-based protocol using automatic tube modulation was used to optimize exposure parameters. COMPARISON: Noncontrast CT head performed concurrently. FINDINGS: CTA OF THE NECK: Arch: There is a three vessel aortic arch. The origins of the supra aortic vessels are patent. Right carotid system: The common carotid and cervical internal carotid arteries are patent. No stenosis (0%) by NASCET criteria. There is no dissection or aneurysm. Left carotid system: The common carotid and cervical internal carotid arteries are patent. No stenosis (0%) by NASCET criteria. There is no dissection or aneurysm. There is a co-dominant vertebral artery system. Right vertebral: Mild indentation by uncovertebral spurring at the level of C6- 7. Otherwise no significant stenosis. No evidence of dissection or aneurysm. Left vertebral: No significant stenosis. No evidence of dissection or aneurysm. Other: Soft tissues and bones: No evidence of lymphadenopathy or mass. Subcentimeter calcified nodules within the atrophic thyroid, not requiring follow-up given the small size. Visualized lungs are blurredby motion artifact, without significant superimposed airspace opacity. Emphysematous changes are noted in the visualized upper lungs. There is possible thickening of the esophagus, which could reflect esophagitis or could be artifactual due to decompression. Several small mediastinal nodes are noted. Borderline enlarged right hilar node measures 1 cm short axis. Multilevel degenerative changes ofthe spine are noted, without acute osseous abnormality. 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 CTA OF THE HEAD: Anterior circulation: Bilateral intracranial ICAs are patent, with trace atherosclerotic calcification on the left but no stenosis. Bilateral BRANDON and MCA branches are patent. There is no significant stenosis, proximal cutoff, aneurysm, or vascular malformation. Posterior circulation: Bilateral intracranial vertebral arteries, the basilar artery, and bilateralsuperior cerebellar and posterior cerebral branches are patent. There is no significant stenosis, proximal cutoff, aneurysm, or vascular malformation. Veins: Major dural venous sinuses are patent. Other: Soft tissues and bones: No midline shift or effacement of the basal cisterns. No space-occupying hemorrhage. No territorial loss of navarro-white matter differentiation. Orbits are unremarkable. No significant opacification in the paranasal sinuses or mastoid air cells. IMPRESSION: No proximal occlusion or high grade stenosis in the major arteries of the head and neck. WSN: [id number] Ordering Physician: Jesus Martinez Dictated By: Fernanda Jo MD Dictated Date/Time: 11/22/22 5:29 pm Reviewed By: Fernanda Jo MD Signed By: Fernanda Jo MD Signed Date/Time: 11/22/22 5:29 pm Transcribed By: DELMER Transcribed Date/Time: 11/22/22 2:52 pm * Exam Date Time Procedure Performing Provider Status 11/22/22 2:[address] Angio Head Hyperacute Stroke Nuno Lopez; Jim (Verified) Notes: (CT Angio Head Hyperacute Stroke) Reason For Exam: dizzy/diplopia Neuro deficit, acute, stroke suspected;Other: RESULT: CT Angio Head Hyperacute Stroke CT Angio Head Hyperacute Stroke, CT Angio Neck Hyperacute Stroke Reason: Other:; dizzy diplopia Neuro deficit, acute, stroke suspected; Clinical Question(s): Other:; Hematoma Aneurysm / Other: TECHNIQUE: CT angiogram of the head and neck was performed after bolus administration of intravenous contrast. 75 mL of Omnipaque 300 was administered intravenously. Coronal and sagittal MIP reformatted images were obtained. Additional 3-D images were created on a separate workstation under concurrent supervision by the attending radiologist. All stenoses are measured using NASCET criteria. Weight-based protocol using automatic tube modulation was used to optimize exposure parameters. COMPARISON: Noncontrast CT head performed concurrently. FINDINGS: CTA OF THE NECK: Arch: There is a three vessel aortic arch. The origins of the supra aortic vessels are patent. Right carotid system: The common carotid and cervical internal carotid arteries are patent. No stenosis (0%) by NASCET criteria. There is no dissection or aneurysm. Left carotid system: The common carotid and cervical internal carotid arteries are patent. No stenosis (0%) by NASCET criteria. There is no dissection or aneurysm. There is a co-dominant vertebral artery system. Right vertebral: Mild indentation by uncovertebral spurring at the level of C6- 7. Otherwise no significant stenosis. No evidence of dissection or aneurysm. Left vertebral: No significant stenosis. No evidence of dissection or aneurysm. Other: Soft tissues and bones: No evidence of lymphadenopathy or mass. Subcentimeter calcified nodules within the atrophic thyroid, not requiring follow-up given the small size. Visualized lungs are blurredby motion artifact, without significant superimposed airspace opacity. Emphysematous changes are noted in the visualized upper lungs. There is possible thickening of the esophagus, which could reflect esophagitis or could be artifactual due to decompression. Several small mediastinal nodes are noted. Borderline enlarged right hilar node measures 1 cm short axis. Multilevel degenerative changes ofthe spine are noted, without acute osseous abnormality. 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 CTA OF THE HEAD: Anterior circulation: Bilateral intracranial ICAs are patent, with trace atherosclerotic calcification on the left but no stenosis. Bilateral BRANDON and MCA branches are patent. There is no significant stenosis, proximal cutoff, aneurysm, or vascular malformation. Posterior circulation: Bilateral intracranial vertebral arteries, the basilar artery, and bilateralsuperior cerebellar and posterior cerebral branches are patent. There is no significant stenosis, proximal cutoff, aneurysm, or vascular malformation. Veins: Major dural venous sinuses are patent. Other: Soft tissues and bones: No midline shift or effacement of the basal cisterns. No space-occupying hemorrhage. No territorial loss of navarro-white matter differentiation. Orbits are unremarkable. No significant opacification in the paranasal sinuses or mastoid air cells. IMPRESSION: No proximal occlusion or high grade stenosis in the major arteries of the head and neck. WSN: [id number] Ordering Physician: Jesus Martinez Dictated By: Fernanda Jo MD Dictated Date/Time: 11/22/22 5:29 pm Reviewed By: Fernanda Jo MD Signed By: Fernanda Jo MD Signed Date/Time: 11/22/22 5:29 pm Transcribed By: DELMER Transcribed Date/Time: 11/22/22 2:52 pm * Exam Date Time Procedure Performing Provider Status 11/22/22 2:[address] Head/Brain W/O Contrast Kaci Lopez; Auth (Verified) Notes: (CT Head/Brain W/O Contrast) Reason For Exam: Neuro deficit, acute, stroke suspected;Other: RESULT: CT Head/Brain W/O Contrast CT Head/Brain W/O Contrast INDICATION: Reason: Other:; Neuro deficit, acute, stroke suspected; Clinical Question(s): Other:; Hematoma Infarction TECHNIQUE: Noncontrast head CT using axial technique and reconstructed in axial and coronal planes.Iterative reconstruction techniques are used to optimize dose and image quality. COMPARISON: None. FINDINGS: Blade Groover view findings, lines and tubes: None. BRAIN AND EXTRA-AXIAL SPACES: No parenchymal hemorrhage, midline shift, or mass effect. Navarro-white matter differentiation is wellpreserved. No acute infarct. Ventricles, sulci, and basilar cisterns are normal. No white matter lesions. No subarachnoid hemorrhage. No subdural or epidural collection. CALVARIUM, SKULL BASE, AND SOFT TISSUES: No fractures or suspicious bony lesions. The paranasal sinuses and mastoid air cells are clear. Visualized orbits and globes are intact. The extracranial soft tissues are unremarkable. IMPRESSION: No acute intracranial pathology. WSN: [id number] Ordering Physician: Jesus Martinez Dictated By: Sonu Torres MD Dictated Date/Time: 11/22/22 2:29 pm Reviewed By: Sonu Torres MD Signed By: Sonu Torres MD Signed Date/Time: 11/22/22 2:29 pm Transcribed By: DELMER Transcribed Date/Time: 11/22/22 2:27 pm Vital Signs Most recent to oldest [Reference Range]: 1 2 3 Height 168 cm (11/22/22 5:11 PM) 168 cm (11/22/22 2:54 PM) 168 cm (11/22/22 2:44 PM) Weight 66 kg (11/22/22 5:11 PM) 66 kg (11/22/22 2:54 PM) 66 kg (11/22/22 2:44 PM) Oxygen Saturation [94-100 %] 99 % (11/22/22 5:11 PM) 96 % (11/22/22 3:38 PM) 98 % (11/22/22 2:54 PM) Pulse Rate [55-90 bpm] 67 bpm (11/22/22 5:11 PM) 79 bpm (11/22/22 3:38 PM) 70 bpm (11/22/22 2:54 PM) Body Mass Index [18.5-24.99 kg/m2] 23.38 kg/m2 (11/22/22 5:11 PM) 23.38 kg/m2 (11/22/22 2:54 PM) Blood Pressure [90-138/55-84 mm Hg] 137/88mm Hg (11/22/22 5:11 PM) 111/72mm Hg (11/22/22 3:38 PM) 126/73mm Hg (11/22/22 2:54 PM) Respiratory Rate [16-30 br/min] 18 br/min (11/22/22 5:11 PM) 23 br/min (11/22/22 3:38 PM) 16 br/min (11/22/22 2:54 PM) Temperature [96.8-100.4 DegF] 97.8 DegF (11/22/22 2:22 PM) Mode of Delivery (Oxygen) Room air (11/22/22 5:11 PM) Room air (11/22/22 3:38 PM) Room air (11/22/22 2:54 PM) Blood pressure sites Arm, left (11/22/22 5:11 PM) Arm, right (11/22/22 2:54 PM) Arm, right (11/22/22 2:22 PM) Temperature Route Oral (11/22/22 2:22 PM) Dry Weight 66 kg (11/22/22 5:11 PM) 66 kg (11/22/22 2:54 PM) 66 kg (11/22/22 2:44 PM) Weight Obtained Via Patient/family state d (11/22/22 2:44 PM) Dry Weight Obtained Via Patient lift dalton ging scale (11/22/22 2:44 PM) Social History Social History Type Response Smoking Status Former smoker, quit more than 30 days ago; Other: Started age 14. Smoked for 42 years. Quit around 05/2021 still smoking 2021; entered on: 11/24/21 Sex Note * Juan MCDUFFIE, Jesus Bass: PERFORM Event Display: Patient Education Leaflets Authored Date: [id number] Stroke (Completed) ?? [id number] Stroke (Completed) You have had a stroke, or cerebrovascular accident (CVA). This is caused by a loss of blood flow topart of your brain. Ischemic type strokes can occur when a blood clot forms inside the carotid artery (main artery from the heart to the brain). Or a clot can form inside the heart and travel to the brain to lodge in a blood vessel and block blood flow. Another common ischemic cause of stroke is a gradual narrowing of the arteries in the brain because of buildup of fatty deposits (plaque). A clotcan form at such a narrowing. Less commonly, infection or cancer can cause ischemic stroke. An autoimmune disease can cause inflammation of the blood vessels and also lead to stroke. A second type of stroke is hemorrhagic stroke. It occurs when a blood vessel ruptures and causes bleeding inside the brain . Symptoms Blocked blood flow in different areas of the brain can cause different symptoms. If you have had a stroke before, a new one may be different. A memory aid for the basic signs of a stroke is B.F.F.A.S.T. Shelia.E. F.A.S.T. ??? B is for balance. Sudden loss of balance or coordination. ??? E is for eyes. Vision changes in one or both eyes. ??? F is for face drooping. Drooping or numbness on one side of the face. This maybe more noticeable when you ask the affected person to smile. ??? A is for arm weakness or numbness. The affected person may have trouble using or lifting one side. ??? S is for speech difficulty. Speech may be slurred or hard to understand. The affected person may also use the wrong words. ??? T is for time to call 911. Time is critical in treating a stroke. Call 911 as soon as you suspect a stroke has happened???even a small one. The sooner treatment is started the better, even if the symptoms go away. Other common symptoms of a stroke include: ??? Having trouble getting the right words to come out ??? Weakness in one leg ??? Numbness on one side ??? Trouble walking ??? Trouble with coordination ??? Trouble with vision ??? Severe headache ??? Confusion ??? Dizziness ?? Treatment After you have had a stroke, you are at risk of having another. Be sure to follow up with your healthcare provider for more assessment and treatment. If problems are found, your healthcare provider will advise treatment with medicines, procedures, or both. To reduce your chance of having another stroke, you may be prescribed medicines. These include medicines to prevent blood clots, such as antiplatelet or anticoagulant medicines. Certain heart conditions can be treated with surgery to reduce the risk for more strokes. Surgery to open up a blockage in the carotid artery (endarterectomy) may also reduce the risk for future strokes. You will likely need physical therapy, including speech and occupational therapy if appropriate. This can be done at home, at an outpatient office, or in a rehabilitation hospital. Which location depends on your needs and abilities. ?? Home care ??? Rest at home and don't exert yourself for the next few days. ??? If your healthcare provider has prescribed medicines, take them as directed. ?? Follow-up care Follow up with your healthcare provider, or as advised. Additional tests may be needed. If you had an X-ray, CT scan, MRI, or ECG (electrocardiogram), it will be reviewed by a specialist. You will benotified of any new findings that will affect your care. ?? Call 911 Call 911 if any of these occur: ??? Any of your stroke symptoms worsen ??? Sudden new problems with speech, confusion, vision, walking, coordination, facial droop, or weakness or numbness on one side of your body ??? Severe headache, fainting spell, dizziness, or seizure ??? Chest pain or shortness of breath Remember F.A.S.T. (described above). If you notice warning signs and symptoms of stroke, Call [address] yourself or the victim. The ambulance can alert the hospital and start treatment. ?? Last Reviewed Date: 2022 ?? [employer]. All rights reserved. This information is not intended as a substitute for professional medical care. Always follow your healthcare professional's instructions. ?? CT Head WO contrast * MITCHEL Elias S: Sonu Vargas MD: VERIFY Event Display: Result: Authored Date: [id number] CT Head/Brain W/O Contrast INDICATION: Reason: Other:; Neuro deficit, acute, stroke suspected; Clinical Question(s): Other:; Hematoma Infarction TECHNIQUE: Noncontrast head CT using axial technique and reconstructed in axial and coronal planes.Iterative reconstruction techniques are used to optimize dose and image quality. COMPARISON: None. FINDINGS: Blade Groover view findings, lines and tubes: None. BRAIN AND EXTRA-AXIAL SPACES: No parenchymal hemorrhage, midline shift, or mass effect. Navarro-white matter differentiation is wellpreserved. No acute infarct. Ventricles, sulci, and basilar cisterns are normal. No white matter lesions. No subarachnoid hemorrhage. No subdural or epidural collection. CALVARIUM, SKULL BASE, AND SOFT TISSUES: No fractures or suspicious bony lesions. The paranasal sinuses and mastoid air cells are clear. Visualized orbits and globes are intact. The extracranial soft tissues are unremarkable. IMPRESSION: No acute intracranial pathology. WSN: [id number] Ordering Physician: Jesus Martinez Dictated By: Sonu Torres MD Dictated Date/Time: 11/22/22 2:29 pm Reviewed By: Sonu Torres MD Signed By: Sonu Torres MD Signed Date/Time: 11/22/22 2:29 pm Transcribed By: DELMER Transcribed Date/Time: 11/22/22 2:27 pm Radiology * MITCHEL Elias S: Fernanda Souza MD: VERIFY Event Display: Result: Authored Date: [id number] CT Angio Head Hyperacute Stroke, CT Angio Neck Hyperacute Stroke Reason: Other:; dizzy diplopia Neuro deficit, acute, stroke suspected; Clinical Question(s): Other:; Hematoma Aneurysm / Other: TECHNIQUE: CT angiogram of the head and neck was performed after bolus administration of intravenous contrast. 75 mL of Omnipaque 300 was administered intravenously. Coronal and sagittal MIP reformatted images were obtained. Additional 3-D images were created on a separate workstation under concurrent supervision by the attending radiologist. All stenoses are measured using NASCET criteria. Weight-based protocol using automatic tube modulation was used to optimize exposure parameters. COMPARISON: Noncontrast CT head performed concurrently. FINDINGS: CTA OF THE NECK: Arch: There is a three vessel aortic arch. The origins of the supra aortic vessels are patent. Right carotid system: The common carotid and cervical internal carotid arteries are patent. No stenosis (0%) by NASCET criteria. There is no dissection or aneurysm. Left carotid system: The common carotid and cervical internal carotid arteries are patent. No stenosis (0%) by NASCET criteria. There is no dissection or aneurysm. There is a co-dominant vertebral artery system. Right vertebral: Mild indentation by uncovertebral spurring at the level of C6- 7. Otherwise no significant stenosis. No evidence of dissection or aneurysm. Left vertebral: No significant stenosis. No evidence of dissection or aneurysm. Other: Soft tissues and bones: No evidence of lymphadenopathy or mass. Subcentimeter calcified nodules within the atrophic thyroid, not requiring follow-up given the small size. Visualized lungs are blurredby motion artifact, without significant superimposed airspace opacity. Emphysematous changes are noted in the visualized upper lungs. There is possible thickening of the esophagus, which could reflect esophagitis or could be artifactual due to decompression. Several small mediastinal nodes are noted. Borderline enlarged right hilar node measures 1 cm short axis. Multilevel degenerative changes ofthe spine are noted, without acute osseous abnormality. 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 CTA OF THE HEAD: Anterior circulation: Bilateral intracranial ICAs are patent, with trace atherosclerotic calcification on the left but no stenosis. Bilateral BRANDON and MCA branches are patent. There is no significant stenosis, proximal cutoff, aneurysm, or vascular malformation. Posterior circulation: Bilateral intracranial vertebral arteries, the basilar artery, and bilateralsuperior cerebellar and posterior cerebral branches are patent. There is no significant stenosis, proximal cutoff, aneurysm, or vascular malformation. Veins: Major dural venous sinuses are patent. Other: Soft tissues and bones: No midline shift or effacement of the basal cisterns. No space-occupying hemorrhage. No territorial loss of navarro-white matter differentiation. Orbits are unremarkable. No significant opacification in the paranasal sinuses or mastoid air cells. IMPRESSION: No proximal occlusion or high grade stenosis in the major arteries of the head and neck. WSN: [id number] Ordering Physician: Jesus Martinez Dictated By: Fernanda Jo MD Dictated Date/Time: 11/22/22 5:29 pm Reviewed By: Fernanda Jo MD Signed By: Fernanda Jo MD Signed Date/Time: 11/22/22 5:29 pm Transcribed By: DELMER Transcribed Date/Time: 11/22/22 2:52 pm * [facility] , CIS S: TRANSCRIBE Fernanda Jo MD: VERIFY Event Display: Result: Authored Date: [id number] CT Angio Head Hyperacute Stroke, CT Angio Neck Hyperacute Stroke Reason: Other:; dizzy diplopia Neuro deficit, acute, stroke suspected; Clinical Question(s): Other:; Hematoma Aneurysm / Other: TECHNIQUE: CT angiogram of the head and neck was performed after bolus administration of intravenous contrast. 75 mL of Omnipaque 300 was administered intravenously. Coronal and sagittal MIP reformatted images were obtained. Additional 3-D images were created on a separate workstation under concurrent supervision by the attending radiologist. All stenoses are measured using NASCET criteria. Weight-based protocol using automatic tube modulation was used to optimize exposure parameters. COMPARISON: Noncontrast CT head performed concurrently. FINDINGS: CTA OF THE NECK: Arch: There is a three vessel aortic arch. The origins of the supra aortic vessels are patent. Right carotid system: The common carotid and cervical internal carotid arteries are patent. No stenosis (0%) by NASCET criteria. There is no dissection or aneurysm. Left carotid system: The common carotid and cervical internal carotid arteries are patent. No stenosis (0%) by NASCET criteria. There is no dissection or aneurysm. There is a co-dominant vertebral artery system. Right vertebral: Mild indentation by uncovertebral spurring at the level of C6- 7. Otherwise no significant stenosis. No evidence of dissection or aneurysm. Left vertebral: No significant stenosis. No evidence of dissection or aneurysm. Other: Soft tissues and bones: No evidence of lymphadenopathy or mass. Subcentimeter calcified nodules within the atrophic thyroid, not requiring follow-up given the small size. Visualized lungs are blurredby motion artifact, without significant superimposed airspace opacity. Emphysematous changes are noted in the visualized upper lungs. There is possible thickening of the esophagus, which could reflect esophagitis or could be artifactual due to decompression. Several small mediastinal nodes are noted. Borderline enlarged right hilar node measures 1 cm short axis. Multilevel degenerative changes ofthe spine are noted, without acute osseous abnormality. 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 CTA OF THE HEAD: Anterior circulation: Bilateral intracranial ICAs are patent, with trace atherosclerotic calcification on the left but no stenosis. Bilateral BRANDON and MCA branches are patent. There is no significant stenosis, proximal cutoff, aneurysm, or vascular malformation. Posterior circulation: Bilateral intracranial vertebral arteries, the basilar artery, and bilateralsuperior cerebellar and posterior cerebral branches are patent. There is no significant stenosis, proximal cutoff, aneurysm, or vascular malformation. Veins: Major dural venous sinuses are patent. Other: Soft tissues and bones: No midline shift or effacement of the basal cisterns. No space-occupying hemorrhage. No territorial loss of navarro-white matter differentiation. Orbits are unremarkable. No significant opacification in the paranasal sinuses or mastoid air cells. IMPRESSION: No proximal occlusion or high grade stenosis in the major arteries of the head and neck. WSN: [id number] Ordering Physician: Jesus Martinez Dictated By: Fernanda Jo MD Dictated Date/Time: 11/22/22 5:29 pm Reviewed By: Fernanda Jo MD Signed By: Fernanda Jo MD Signed Date/Time: 11/22/22 5:29 pm Transcribed By: DEMLER Transcribed Date/Time: 11/22/22 2:52 pm Portable XR Chest Views * BHSPowerscribe , CIS S: TRANSCRIBE Gerardo Kim MD S: VERIFY Joseluis Alicia MD T: SIGN Event Display: Result: Authored Date: [id number] Chest Portable REASON: Stroke. Clinical Question(s): CHF. COMPARISON: 07/31/2022, 07/23/2022 FINDINGS: LINES AND TUBES: None. LUNGS AND PLEURA: Mild bibasilar atelectasis. Normal pulmonary vascularity. No pleural effusion. No pneumothorax. HEART, MEDIASTINUM AND ANGÉLICA: Heart is normal in size. Normal mediastinal and hilar contour. BONES AND SOFT TISSUES: No acute abnormality. IMPRESSION: No evidence of acute abnormality. I have personally reviewed the images and I agree with this report. WSN: [id number] Ordering Physician: Jesus Martinez Dictated By: Joseluis Alicia MD Dictated Date/Time: 11/22/22 4:17 pm Reviewed By: Gerardo Kim MD Signed By: Gerardo Kim MD Signed Date/Time: 11/22/22 4:22 pm Transcribed By: DELMER Transcribed Date/Time: 11/22/22 4:13 pm Patient Care team information Care Team Personnel Name: Stephen Kay MD Position: [facility] Primary Care Physician Member Role: PCP Address: Address: [address] [place] [address] Adult & [place] [address]- Name: Adan Chang RN Position: [facility] ED RN W/OE and Tasks Member Role: Patient Care Provider Name: Socorro Shaw Position: [facility] ED TA [facility] Member Role: Vaccine Key Customer Leader Name: Jesus Martinez MD Position: [facility] ED Medicine MD Member Role: Admitting Physician Address: Address: [address] [place] [address] [place] [address]- Care Team Related Persons Name: QUEENIE CARRANZA Address: home [address] [place] [address] Name: TYRONE CARRANZA Address: home [address] [place] [address]
--- OUTSIDE RECORDS SUMMARY | 2024-04-23 20:24 | XMS_ITS | Continuity of Care Document ---
Author Organization [facility] Address [address] [place] [address]- Care Team Providers Care Boat Canvas Installer Name Role Phone Stephen Kay MD Primary Care Physician Encounter [facility] [place] Date(s): 08/31/21 - 10/12/21 [facility] [address] [place] [address]- Attending Physician: Anum Minor MD Admitting Physician: Anum Minro MD Allergies, Adverse Reactions, Alerts Substance Reaction [...] Refills, Maintenance, 09/23/21 10:33:00 EST, Lotion, [id number], Partial fill upon patient request if the prescription is for a schedule II opioid drug., Topically 2 times a day, 167.64, cm... Start Date: 09/23/21 Status: Ordered ibuprofen 800 mg oral tablet 800 mg, 1, tablet, By Mouth, Every 8 hours, # 40 tablet, Refills 0, Tot. Refills 0, Maintenance, 08/11/21 15:50:00 EST, Route to Pharmacy Electronically, [facility]/pharmacy #[id number], Partial fill upon patientrequest if the prescription is for a schedule II op... Start Date: 08/11/21 Status: Ordered lidocaine 2% topical gel with applicator 5 mL = 0.1 Gm, Topically, Once, Apply 30 mins prior to scheduled vulvar procedure, # 10 mL, 0 Refills, Soft Stop, 09/06/21 10:36:00 EST, Gel, [facility]/pharmacy #[id number], Partial fill upon patient request if the prescription is for a schedule II opioid drug.,... Start Date: 09/06/21 Status: Ordered Lipitor 20 mg oral tablet 1 tablet = 20 mg, By Mouth, Daily, # 30 tablet, 11 Refills, Maintenance, 05/25/21 12:08:00 EST, Tablet, [facility]/pharmacy #[id number], Partial fill upon patient [...] Maintenance, 07/06/21 13:28:00 EST, Tablet, [facility]/pharmacy #[id number], duplicate rx. original sent 03/09/21. remaining r... Start Date: 07/06/21 Stop Date: 03/03/22 Status: Ordered Tylenol 325 mg oral capsule 2 capsule = 650 mg, By Mouth, Every 4 hours, PRN as needed for pain, # 50 tablet, 0 Refills, Maintenance, 08/11/21 15:51:00 EST, Capsule, [facility]/pharmacy #[id number], Partial fill upon patient [...]
--- OUTSIDE RECORDS SUMMARY | 2024-04-23 20:24 | XMS_ITS | Continuity of Care Document ---
Author Organization [facility] Address [address] [place] [address]- Care Team Providers Care Auto Camp Attendant Name Role Phone Stephen Kay MD Primary Care Physician [place] [facility] [place] 09/20/21 - 10/20/21 [facility] [address] [place] [id number] [place] Allergies, Adverse Reactions, Alerts [...] 20 mL, 0 Refills, Maintenance, 09/23/21 10:33:00 ESTMarisela, [id number], Partial fill upon patient request if the prescription is for a schedule II opioid drug., Topically 2 times a day, 167.64, cm... Start Date: 09/23/21 Status: Ordered ibuprofen 800 mg oral tablet 800 mg, 1, tablet, By Mouth, Every 8 hours, # 40 tablet, Refills 0, Tot. Refills 0, Maintenance, 08/11/21 15:50:00 EST, Route to Pharmacy Electronically, [facility]/pharmacy #[id number], Partial fill upon patientrequest if the prescription is for a schedule II op... Start Date: 08/11/21 Status: Ordered lidocaine 2% topical gel with applicator 5 mL = 0.1 Gm, Topically, Once, Apply 30 mins prior to scheduled vulvar procedure, # 10 mL, 0 Refills, Soft Stop, 09/06/21 10:36:00 EST, Gel, [facility]/pharmacy #[id number], Partial fill upon patient request if the prescription is for a schedule II opioid drug.,... Start Date: 09/06/21 Status: Ordered Lipitor 20 mg oral tablet 1 tablet = 20 mg, By Mouth, Daily, # 30 tablet, 11 Refills, Maintenance, 05/25/21 12:08:00 EST, Tablet, [facility]/pharmacy #[id number], Partial fill upon patient request if [...] Refills, Maintenance, 07/06/21 13:28:00 EST, Tablet, [facility]/pharmacy #[id number], duplicate rx. original sent 03/09/21. remaining r... Start Date: 07/06/21 Stop Date: 03/03/22 Status: Ordered Tylenol 325 mg oral capsule 2 capsule = 650 mg, By Mouth, Every 4 hours, PRN as needed for pain, # 50 tablet, 0 Refills, Maintenance, 08/11/21 15:51:00 EST, Capsule, [facility]/pharmacy #[id number], Partial fill upon patient request if [...]
--- OUTSIDE RECORDS SUMMARY | 2024-04-23 20:24 | XMS_ITS | Continuity of Care Document ---
Author Organization [facility] Address [address] [place] [address]- Care Team Providers Care Maintenance Instructor Name Role Phone Stephen Kay MD Primary Care Physician Encounter [facility] [place] Date(s): 06/14/22 - 07/14/22 [facility] and Diabetes [address] [place] [address]- Allergies, Adverse Reactions, Alerts Substance Reaction Severity [...] Team Personnel Name: Stephen Kay MD Position: [facility] Primary Care Physician Member Role: PCP Address: Address: [address] [place] [address] Adult & Pediatric Medicine [place], [place] [address] Care Team Related Persons Name: QUEENIE CARRANZA Address: home [address] [place] [address] Name: TYRONE CARRANZA Address: home [address] [place] [address]
--- OUTSIDE RECORDS SUMMARY | 2024-04-23 20:24 | XMS_ITS | Continuity of Care Document ---
Author Organization [facility] Address [address] [place] [address]- Care Team Providers Care Hostess Cashier Name Role Phone Eliza MCDUFFIE, Stephen Cao Primary Care Physician Encounter [facility] Date(s): 06/25/23 - 07/25/23 [facility] Diabetes [address] [place] [id number] Attending Physician: Admtr, Luz Elena Admitting Physician: AdmtrLuz Elena Referring Physician: [...] 08/07/25 0:00:00 EST, 08/07/22 11:15:00 EST, Ointment, [facility]/pharmacy #[id number], Partial fill upon patient request if the prescription is for... Start Date: 08/07/22 Stop Date: 08/07/25 Status: Ordered clobetasol 0.05% topical ointment 1 application, Topically, Every Saturday and , apply a thin film twice weekly in morning and evening,, # 60 Gm, 11 Refills, Acute 03/25/27 0:00:00 EDT, 08/07/25 0:00:00 EST, Ointment, [facility]/pharmacy #[id number], Partial fill upon patient request if the... Start Date: 08/07/25 Stop Date: 03/25/27 Status: Ordered Flonase 50 mcg/inh nasal spray 1 sprays, Nares, Both, 2 times a day, # 16 Gm, 0 Refills, Maintenance, 08/09/22 17:35:00 EST, [place], [facility]/pharmacy #[id number], This is NOT a routine chronic medication, 1 sprays Nares, Both 2 times a day, 166.9, cm, 08/09/22 13:41:00 EST, Height, 63,... Start Date: 08/09/22 Status: Ordered ProAir HFA 90 mcg/inh inhalation aerosol with adapter 2, puffs, Inhalation, Every 6 hours, PRN, # 8.5 Gm, Refills 0, Tot. Refills 0, Maintenance, 05/30/23 14:04:00 EST, Aerosol, Route to Pharmacy Electronically, [id number], [facility]/pharmacy #[id number], 168, cm, 05/30/23 11:48:00 EST, Hei... Start Date: 05/30/23 Status: Ordered rosuvastatin 5 mg oral tablet 1 tablet = 5 mg, By Mouth, Daily, # 90 tablet, 3 Refills, Maintenance, 07/24/23 10:18:00 EST, Tablet, [facility]/pharmacy #[id number], Partial fill upon patient request if [...] Personnel Name: Stephen Kay MD Position: [facility] Physician - Primary Care Member Role: PCP Address: Address: [address] [place] [address] Adult [place] [address]- Care Team Related Persons Name: QUEENIE CARRANZA Address: home [address] [place] [phone] Name: TYRONE CARRANZA Address: home [address] [place] [address]
--- OUTSIDE RECORDS SUMMARY | 2024-04-23 20:25 | XMS_ITS | Continuity of Care Document ---
Author Organization [facility] Address [address] [place] [address]- Care Team Providers Care Screen Printing Inspector Name Role Phone Stephen Kay MD Primary Care Physician Encounter [facility] [place] Date(s): 10/10/22 - 11/09/22 [facility] [address] [place] [address]- [place] Allergies, Adverse Reactions, Alerts Substance Reaction [...] Gm, 0 Refills, Maintenance, 08/09/22 17:35:00 EST, [place], [id number], This is NOT a routine [...] Team Personnel Name: Stephen Kay MD Position: [facility] Primary Care Physician Member Role: PCP Address: Address: [address] [place] [address] Adult [place] [address]- Care Team Related Persons Name: QUEENIE CARRANZA Address: home [address] [place] [address] Name: TYRONE CARRANZA Address: [address] [place] [address]
--- OUTSIDE RECORDS SUMMARY | 2024-04-23 20:25 | XMS_ITS | Continuity of Care Document ---
Author Organization [facility] Address [address] [place] [address]- Care Team Providers Care Seasonal Retail Merchandiser Name Role Phone Stephen Kay MD Primary Care Physician [place] [facility] [place]s): 06/15/21 - 06/22/21 [facility] [address] [place] [address]- Encounter Diagnosis Cough(Discharge Diagnosis) - 06/15/21 Attending [...] Soft Stop, 06/15/21 18:31:00 EST, Tablet, [id number], Partial fill upon patient request if the [...] 11 Refills, Maintenance, 05/25/21 12:08:00 EST, Tablet, [facility]/pharmacy #[id number], Partial fill upon patient [...] 11 Refills, Maintenance, 03/10/21 12:39:00 EDT, Tablet, [facility]/pharmacy #[id number], 168.5, cm, 10/02/18 13:14:00 [...] regina Service Informant Cough Discharge Diagnosis 06/15/21 Vital Signs Most recent to oldest [Reference Range]: 1 Height 168.50 cm (06/15/21 5:55 PM) Oxygen Saturation [94-100 %] 98 % (06/15/21 5:55 PM) Pulse Rate [55-90 bpm] 88 bpm (06/15/21 5:55 PM) Blood Pressure [90-138/55-84 mm Hg] 113/ 64mm Hg (06/15/21 5:55 PM) Respiratory Rate [16-30 br/min] 20 br/mi n (06/15/21 5:55 PM) Temperature [96.8-100.4 DegF] 98.2 DegF (06/15/21 5:55 PM) Mode of Delivery (Oxygen) Room air (06/15/21 5:55 PM) Blood pressure sites Arm, right (06/15/21 5:55 PM) Temperature Route Temporal (06/15/21 5:55 PM) Social History Social History Type Response Smoking Status Current every day david beatty; Number of years: 42; Total pack years: 42; Started at age: 14; entered on: 12/27/16 Sex
--- OUTSIDE RECORDS SUMMARY | 2024-04-23 20:25 | XMS_ITS | Continuity of Care Document ---
Author Organization [facility] Address [address] [place] [address]- Care Team Providers Care Educational Speech Language Clinician Name Role Phone Stephen Kay MD Primary Care Physician [phone] Encounter [facility] [place] Date(s): 03/07/20 - 04/06/20 [facility] Diabetes [address] [place] [address]- [facility] Allergies, Adverse Reactions, Alerts Substance Reaction Severity [...] Gm, 0 Refills, Maintenance, 02/20/18 9:42:10 EDT, [place],1 sprays Nares, Both 2 times a day [...] 11 Refills, Maintenance, 03/10/21 12:39:00 EDT, Tablet, [facility]/pharmacy #[id number], 168.5, cm, 10/02/18 13:14:00 EDT, Height Start Date: 03/10/21 Stop Date: 03/05/22 Status: Ordered Synthroid 137 mcg (0.137 mg) oral tablet 1 tablet = 137 mcg, By Mouth, Daily, for 90 days, take an 2 tablets on Sundays; NO SUBSTITUTIONS; BRAND NAME MEDICALLY NECESSARY, # 110 tablet, 3 Refills, Hard Stop 03/10/21 12:39:00 EDT, 03/15/20 12:39:00 EDT, Tablet, [facility]/pharmacy #[id number], 168.5, cm, 0... Start Date: 03/15/20 Stop Date: 03/10/21 Status: [...]
--- OUTSIDE RECORDS SUMMARY | 2024-04-23 20:25 | XMS_ITS | Continuity of Care Document ---
Author Organization [facility] Address [address] [place] [address]- Care Team Providers Care Double Cut Sawyer Name Role Phone Stephen Kay MD Primary Care Physician [phone] Encounter [facility] Date(s): 11/06/22 - 04/05/23 [facility] Oncology [address] [place] [address] Attending Physician: Anum Minor MD [...] 03/25/27 0:00:00 EDT, 08/07/25 0:00:00 EST, Ointment, [facility]/pharmacy #[id number], Partial fill upon patient request if the... Start Date: 08/07/25 Stop Date: 03/25/27 Status: Ordered Flonase 50 mcg/inh nasal spray 1 sprays, Nares, Both, 2 times a day, # 16 Gm, 0 Refills, Maintenance, 08/09/22 17:35:00 EST, [place], [facility]/pharmacy #[id number], This is NOT a routine chronic medication, 1 sprays Nares, Both 2 times a day, 166.9, cm, 08/09/22 13:41:00 EST, Height, 63,... Start Date: 08/09/22 Status: Ordered Synthroid 0.15 mg oral tablet 1 tablet, By Mouth, Daily, # 30 tablet, 6 Refills, Maintenance, 03/19/23 9:51:00 EDT, [id number], 168, cm, 11/30/22 9:48:00 EDT, Height, 65.8, kg, 11/23/22 12:48:00 EDT, Dry Weight Start Date: 03/19/23 Stop Date: 04/18/23 Status: Ordered Tylenol 325 mg oral capsule 2 capsule = 650 mg, By Mouth, Every 4 hours, PRN as needed for pain, # 50 tablet, 0 Refills, Maintenance, 08/11/21 15:51:00 EST, Capsule, [facility]/pharmacy #[id number], Partial fill upon patient request if the prescription is for a schedule II opioid drug., 167.... Start Date: 08/11/21 Status: Ordered Problem List Condition Confirmation Course Effective Dates Status H ealth Status Informant Dense breasts Confirmed Active Diplopia Confirmed Active Urinary problem Confirmed Active Family history of ovarian cancer Confirmed Active Hx of migraines Confirmed Active Neville's thyroiditis melanie feltoniple nodules Confirmed 12/26/16 Active History of uterine [...] Team Personnel Name: Stephen Kay MD Position: [facility] Physician - Primary Care Member Role: PCP Address: Address: [address] [place] [address] Adult & [place] [address]- Care Team Related Persons Name: QUEENIE CARRANZA Address: home [address] [place] [address] Name: TYRONE CARRANZA Address: home [address] [place] [address]
--- OUTSIDE RECORDS SUMMARY | 2024-04-23 20:25 | XMS_ITS | Continuity of Care Document ---
Author Organization [facility] Address [address] [place] [address]- Care Team Providers Care Excel Expert Name Role Phone Stephen Kay MD Primary Care Physician Encounter [facility] [place] Date(s): 08/30/21 - 09/29/21 [facility] Oncology [address] [place] [address]- Attending Physician: AdmLuz Elena grant Admitting Physician: Admtr, Ar8 Referring Physician: Admtr, [...] Refills, Maintenance, 09/23/21 10:33:00 EST, [place], [id number], Partial fill upon patient request if the prescription is for a schedule II opioid drug., Topically 2 times a day, 167.64, cm... Start Date: 09/23/21 Status: Ordered ibuprofen 800 mg oral tablet 800 mg, 1, tablet, By Mouth, Every 8 hours, # 40 tablet, Refills 0, Tot. Refills 0, Maintenance, 08/11/21 15:50:00 EST, [id number], Partial fill upon patientrequest if the prescription is for a schedule II op... Start Date: 08/11/21 Status: Ordered lidocaine 2% topical gel with applicator 5 mL = 0.1 Gm, Topically, Once, Apply 30 mins prior to scheduled vulvar procedure, # 10 mL, 0 Refills, Soft Stop, 09/06/21 10:36:00 EST, Gel, [facility]/pharmacy #[id number], Partial fill upon patient request if the prescription is for a schedule II opioid drug.,... Start Date: 09/06/21 Status: Ordered Lipitor 20 mg oral tablet 1 tablet = 20 mg, By Mouth, Daily, # 30 tablet, 11 Refills, Maintenance, 05/25/21 12:08:00 EST, Tablet, [facility]/pharmacy #2339, Partial fill upon patient [...] 7 Refills, Maintenance, 07/06/21 13:28:00 EST, Tablet, [facility]/pharmacy #2339, duplicate rx. original sent 03/09/21. remaining r... Start Date: 07/06/21 Stop Date: 03/03/22 Status: Ordered Tylenol 325 mg oral capsule 2 capsule = 650 mg, By Mouth, Every 4 hours, PRN as needed for pain, # 50 tablet, 0 Refills, Maintenance, 08/11/21 15:51:00 EST, Capsule, [facility]/pharmacy #[id number], Partial fill upon patient [...]
--- OUTSIDE RECORDS SUMMARY | 2024-04-23 20:25 | XMS_ITS | Continuity of Care Document ---
Author Organization [facility] Address [address] [place] [address]- Care Team Providers Care Liquor Runner Name Role Phone Stephen Kay MD Primary Care Physician [phone] En[place] [facility] [place] Date(s): 02/13/23 - 03/15/23 [facility] Diabetes [address] [place] [id number] Attending Physician: Admtr, Ar8 Admitting Physician: Admtr, [...] 08/07/25 0:00:00 EST, 08/07/22 11:15:00 EST, Ointment, [facility]/pharmacy #2339, Partial fill upon patient request if the prescription is for... Start Date: 08/07/22 Stop Date: 08/07/25 Status: Ordered Flonase 50 mcg/inh nasal spray 1 sprays, Nares, Both, 2 times a day, # 16 Gm, 0 Refills, Maintenance, 08/09/22 17:35:00 EST, [place], [facility], This is NOT a routine chronic medication, 1 sprays Nares, Both 2 times a day, 166.9, cm, 08/09/22 13:41:00 EST, Height, 63,... Start Date: 08/09/22 Status: Ordered Synthroid 0.15 mg oral tablet 1 tablet = 150 mcg, By Mouth, Daily, NO SUBSTITUITION BRAND NAME ONLY, # 30 tablet, 6 Refills, Maintenance, 12/25/22 12:32:00 EDT, Tablet, [facility]/pharmacy #2339, Partial fill upon patient request if [...] Team Personnel Name: Stephen Kay MD Position: [facility] Physician - Primary Care Member Role: PCP Address: Address: [address] [place] [address] Adult [place] [address]- Care Team Related Persons Name: QUEENIE CARRANZA Address: [address] [place] [address] Name: TYRONE CARRANZA Address: home [address] [place] [address]
--- OUTSIDE RECORDS SUMMARY | 2024-04-23 20:25 | XMS_ITS | Continuity of Care Document ---
Author Organization [facility] ter Address [address] [place] [address]- Care Team Providers Care Sweatband Shaper Name Role Phone Stephen Kay MD Primary Care Physician En[place] [facility] [place](s): 09/24/21 - 09/24/[address] [address]- Discharge Disposition: A-D/C Home Attending Physician: Eileen Breen MD Admitting Physician: Eileen Breen MD Referring Physician: Eileen Breen MD Allergies, Adverse Reactions, Alerts Substance Reaction [...] mL, 0 Refills, Maintenance, 09/23/21 10:33:00 EST, [place], [id number], Partial fill upon patient request if the prescription is for a schedule II opioid drug., Topically 2 times a day, 167.64, cm... Start Date: 09/23/21 Status: Ordered ibuprofen 800 mg oral tablet 800 mg, 1, tablet, By Mouth, Every 8 hours, # 40 tablet, Refills 0, Tot. Refills 0, Maintenance, 08/11/21 15:50:00 EST, [id number] fill upon patientrequest if the prescription is for a schedule II op... Start Date: 08/11/21 Status: Ordered lidocaine 2% topical gel with applicator 5 mL = 0.1 Gm, Topically, Once, Apply 30 mins prior to scheduled vulvar procedure, # 10 mL, 0 Refills, Soft Stop, 09/06/21 10:36:00 EST, Gel, [facility]/pharmacy #[id number], Partial fill upon patient request if the prescription is for a schedule II opioid drug.,... Start Date: 09/06/21 Status: Ordered Lipitor 20 mg oral tablet 1 tablet = 20 mg, By Mouth, Daily, # 30 tablet, 11 Refills, Maintenance, 05/25/21 12:08:00 EST, Tablet, [facility]/pharmacy #[id number], Partial fill upon patient request [...] Refills, Maintenance, 07/06/21 13:28:00 EST, Tablet, [facility]/pharmacy #[id number], duplicate rx. original sent 03/09/21. remaining r... Start Date: 07/06/21 Stop Date: 03/03/22 Status: Ordered Tylenol 325 mg oral capsule 2 capsule = 650 mg, By Mouth, Every 4 hours, PRN as needed for pain, # 50 tablet, 0 Refills, Maintenance, 08/11/21 15:51:00 EST, Capsule, [facility]/pharmacy #[id number], Partial fill upon patient request [...] Most recent to oldest [Reference Range]: 1 Weight 67.1 kg (09/24/21 1:43 PM) Oxygen Saturation [94-100 %] 100 % (09/24/21 1:43 PM) Pulse Rate [55-90 bpm] 65 bpm (09/24/21 1:43 PM) Blood Pressure [90-138/55-84 mm Hg] 135/ 74mm Hg (09/24/21 1:43 PM) Respiratory Rate [16-30 br/min] 18 br/mi n (09/24/21 1:43 PM) Temperature [96.8-100.4 DegF] 98.3 DegF (09/24/21 1:43 PM) Mode of Delivery (Oxygen) Room air (09/24/21 1:43 PM) Blood pressure sites Arm, left 1 (09/24/21 1:43 PM) Temperature Route Oral (09/24/21 1:43 PM) Dry Weight 67.1 kg (09/24/21 1:43 PM) Weight Obtained Via Standing scale (09/24/21 1:43 PM) Dry Weight Obtained Via Standing scale (09/24/21 1:43 PM) 1Result Comment: left arm measured at 30cm Social History Social History Type Response Smoking Status Former smoker, quit more than 30 days ago; Other: Started age 14. Smoked for 42 years. Quit around 05/2021; entered on: 07/27/21 Sex
--- OUTSIDE RECORDS SUMMARY | 2024-04-23 20:25 | XMS_ITS | Continuity of Care Document ---
Author Organization [facility] Address [address] [place] [address]- Care Team Providers Care Telephone Solicitor Supervisor Name Role Phone Stephen Kay MD Primary Care Physician [place] [facility] [place] Date(s): 08/17/21 - 12/15/21 [facility] [address] [place] [id number] Attending Physician: Lindsay Dueñas MD Admitting [...]
--- OUTSIDE RECORDS SUMMARY | 2024-04-23 20:25 | XMS_ITS | Continuity of Care Document ---
Author Organization [facility] PAIN MANAGEMENT PHYSICIAN Oncolog y Address [address] [place] [address]- Care Team Providers Care Front End Manager Name Role Phone Stephen Kay MD Primary Care Physician [place] [facility] [place]18[place]21 - 09/17/21 [facility] PAIN MANAGEMENT PHYSICIAN Oncology [address] [place] [address] Allergies, Adverse Reactions, Alerts Substance Reaction [...] 08/11/21 15:50:00 EST, Route to Pharmacy Electronically, [facility]/pharmacy #[id number], Partial fill upon patientrequest if the prescription is for a schedule II op... Start Date: 08/11/21 Status: Ordered lidocaine 2% topical gel with applicator 5 mL = 0.1 Gm, Topically, Once, Apply 30 mins prior to scheduled vulvar procedure, # 10 mL, 0 Refills, Soft Stop, 09/06/21 10:36:00 EST, Gel, [facility]/pharmacy #[id number], Partial fill upon patient request if the prescription is for a schedule II opioid drug.,... Start Date: 09/06/21 Status: Ordered Lipitor 20 mg oral tablet 1 tablet = 20 mg, By Mouth, Daily, # 30 tablet, 11 Refills, Maintenance, 05/25/21 12:08:00 EST, Tablet, [facility]/pharmacy #[id number], Partial fill upon patient [...] 7 Refills, Maintenance, 07/06/21 13:28:00 EST, Tablet, [facility]/pharmacy #[id number], duplicate rx. original sent 03/09/21. remaining r... Start Date: 07/06/21 Stop Date: 03/03/22 Status: Ordered Tylenol 325 mg oral capsule 2 capsule = 650 mg, By Mouth, Every 4 hours, PRN as needed for pain, # 50 tablet, 0 Refills, Maintenance, 08/11/21 15:51:00 EST, Capsule, [facility]/pharmacy #[id number], Partial fill upon patient request if the [...]
--- OUTSIDE RECORDS SUMMARY | 2024-04-23 20:25 | XMS_ITS | Continuity of Care Document ---
Author Organization [facility] Address [address] [place] [address]- Care Team Providers Care Sales Representative Groceries Name Role Phone Stephen Kay MD Primary Care Physician Encounter [facility] [place] Date(s): 12/25/22 - 01/24/23 [facility] [address] [place], [place] [address] Allergies, Adverse Reactions, Alerts Substance Reaction [...] Gm, 0 Refills, Maintenance, 08/09/22 17:35:00 EST, [place], [id number], This is NOT a routine [...] Primary Care Member Role: PCP Address: Address: [address] [place] [address] Adult & [place] [address]- Care Team Related Persons Name: QUEENIE CARRANZA Address: home [address] [place] [address] Name: TYRONE CARRANZA Address: home [address] [place] [address]
--- OUTSIDE RECORDS SUMMARY | 2024-04-23 20:25 | XMS_ITS | Continuity of Care Document ---
Author Organization [facility] M ed[facility] Address [address] [place] [address]- Care Team Providers Care Structural Iron Erector Name Role Phone Eliza MCDUFFIE, Stephen Cao Primary Care Physician [place] [facility] [place] 01/20/21 - 02/19/21 [facility] [address] [place] [id number] Attending Physician: Admtr, Luz Elena Admitting Physician: Admtr, Emerson8 Referring Physician: Admtr, Ar8 Allergies, Adverse Reactions, [...] Gm, 0 Refills, Maintenance, 02/20/18 9:42:10 EDT, [place],1 sprays Nares, Both 2 times a day [...] 11 Refills, Maintenance, 03/10/21 12:39:00 EDT, Tablet, [facility] #[id number], 168.5, cm, 10/02/18 13:14:00 EDT, Height Start Date: 03/10/21 Stop Date: 03/05/22 Status: Ordered Synthroid 137 mcg (0.137 mg) oral tablet 1 tablet = 137 mcg, By Mouth, Daily, for 90 days, take an 2 tablets on Sundays; NO SUBSTITUTIONS; BRAND NAME MEDICALLY NECESSARY, # 110 tablet, 3 Refills, Hard Stop 03/10/21 12:39:00 EDT, 03/15/20 12:39:00 EDT, Tablet, [facility] #[id number], 168.5, cm, 0... Start Date: 03/15/20 [...]
--- OUTSIDE RECORDS SUMMARY | 2024-04-23 20:25 | XMS_ITS | Continuity of Care Document ---
Author Organization [facility] STAMPER BLOCKER Oncolog y Address [address] [place] [address]- Care Team Providers Care Hydramatic Specialist Name Role Phone Stephen Kay MD Primary Care Physician [phone] [place] [facility] [place] 09/11/21 - 10/11/21 [facility] STAMPER BLOCKER Oncology [address] [place] [address]- Allergies, Adverse Reactions, Alerts Substance Reaction Severity [...] Refills, Maintenance, 09/23/21 10:33:00 EST, [place], [id number], Partial fill upon patient request if the prescription is for a schedule II opioid drug., Topically 2 times a day, 167.64, cm... Start Date: 09/23/21 Status: Ordered ibuprofen 800 mg oral tablet 800 mg, 1, tablet, By Mouth, Every 8 hours, # 40 tablet, Refills 0, Tot. Refills 0, Maintenance, 08/11/21 15:50:00 EST, Route to Pharmacy Electronically, [facility]/pharmacy #[id number], Partial fill upon patientrequest if the prescription is for a schedule II op... Start Date: 08/11/21 Status: Ordered lidocaine 2% topical gel with applicator 5 mL = 0.1 Gm, Topically, Once, Apply 30 mins prior to scheduled vulvar procedure, # 10 mL, 0 Refills, Soft Stop, 09/06/21 10:36:00 EST, Gel, [facility]/pharmacy #[id number], Partial fill upon patient request if the prescription is for a schedule II opioid drug.,... Start Date: 09/06/21 Status: Ordered Lipitor 20 mg oral tablet 1 tablet = 20 mg, By Mouth, Daily, # 30 tablet, 11 Refills, Maintenance, 05/25/21 12:08:00 EST, Tablet, [facility]/pharmacy #[id number], Partial fill upon patient request [...] 7 Refills, Maintenance, 07/06/21 13:28:00 EST, Tablet, [facility]/pharmacy #[id number], duplicate rx. original sent 03/09/21. remaining r... Start Date: 07/06/21 Stop Date: 03/03/22 Status: Ordered Tylenol 325 mg oral capsule 2 capsule = 650 mg, By Mouth, Every 4 hours, PRN as needed for pain, # 50 tablet, 0 Refills, Maintenance, 08/11/21 15:51:00 EST, Capsule, [facility]/pharmacy #[id number], Partial fill upon patient request [...]
--- OUTSIDE RECORDS SUMMARY | 2024-04-23 20:25 | XMS_ITS | Continuity of Care Document ---
Author Organization [facility] Address [address] [place] [address]- Care Team Providers Care Imaging Scheduler Name Role Phone Eliza MCDUFFIE, Stephen Cao Primary Care Physician [phone] Encounter [facility] [place] Date(s): 12/15/20 - 01/14/21 [facility] [address] [place], [place] [address] Attending Physician: AdmLuz Elena grant Admitting Physician: AdmtrLuz Elena Referring Physician: Admtr, [...] Gm, 0 Refills, Maintenance, 02/20/18 9:42:10 EDT, [place],1 sprays Nares, Both 2 times a day [...] 11 Refills, Maintenance, 03/10/21 12:39:00 EDT, Tablet, [facility] #[id number], 168.5, cm, 10/02/18 13:14:00 EDT, Height Start Date: 03/10/21 Stop Date: 03/05/22 Status: Ordered Synthroid 137 mcg (0.137 mg) oral tablet 1 tablet = 137 mcg, By Mouth, Daily, for 90 days, take an 2 tablets on Sundays; NO SUBSTITUTIONS; BRAND NAME MEDICALLY NECESSARY, # 110 tablet, 3 Refills, Hard Stop 03/10/21 12:39:00 EDT, 03/15/20 12:39:00 EDT, Tablet, [facility]/pharm[facility] #[id number], 168.5, cm, 0... Start Date: 03/15/20 [...]
--- OUTSIDE RECORDS SUMMARY | 2024-04-23 20:25 | XMS_ITS | Continuity of Care Document ---
Author Organization [facility] Address [address] [place] [address]- Care Team Providers Care Slot Tag Inserter Name Role Phone Stephen Kay MD Primary Care Physician [place] [facility] [place] 03/17/22 - 07/15/22 [facility] [address] [place] [address] Attending Physician: Lindsay Dueñas MD Admitting Physician: Lindsay Dueñas MD Referring Physician: Stephen Kay MD Allergies, [...] 0 Refills, Maintenance, 09/23/21 10:33:00 EST, Lotion, [facility]/pharmacy #[id number], Partial fill upon patient [...] 12/25/22 12:32:00 EDT, 05/29/22 12:32:00 EST, Tablet, [facility]/pharmacy #[id number], Partial fill upon patient request if the prescription is for a schedule II opioid drug., 167.... Start Date: 05/29/22 Stop Date: 12/25/22 Status: Ordered Synthroid 0.15 mg oral tablet 1 tablet = 150 mcg, By Mouth, Daily, NO SUBSTITUITION BRAND NAME ONLY, # 30 tablet, 6 Refills, Maintenance, 12/25/22 12:32:00 EDT, Tablet, [facility]/pharmacy #[id number], Partial fill upon [...] Team Personnel Name: Stephen Kay MD Position: [facility] Primary Care Physician Member Role: PCP Address: Address: [address] [place] [address] Adult [place] [address]- Care Team Related Persons Name: QUEENIE CARRANZA Address: home [address] [place] [address] Name: TYRONE CARRANZA Address: home [address] [place] [address]
--- OUTSIDE RECORDS SUMMARY | 2024-04-23 20:25 | XMS_ITS | Continuity of Care Document ---
Author Organization [facility] PROGRAM CHECKER Oncolog y Address [address] [place] [address]- Care Team Providers Care Lotus Notes Administrator Name Role Phone Stephen Kay MD Primary Care Physician Encounter [facility] [place] Date(s): 04/09/23 - 05/09/23 [facility] PROGRAM CHECKER Oncology [address] [place] [address] [address] Allergies, Adverse Reactions, Alerts Substance [...] 0:00:00 EST, 08/07/22 11:15:00 EST, Oint[place], [id number], Partial fill upon patient request if the prescription is for... Start Date: 08/07/22 Stop Date: 08/07/25 Status: Ordered clobetasol 0.05% topical ointment 1 application, Topically, Every Saturday and , apply a thin film twice weekly in morning and evening,, # 60 Gm, 11 Refills, Acute 03/25/27 0:00:00 EDT, 08/07/25 0:00:00 EST, Ointment, [facility]/pharmacy #[id number], Partial fill upon patient request if the... Start Date: 08/07/25 Stop Date: 03/25/27 Status: Ordered Flonase 50 mcg/inh nasal spray 1 sprays, Nares, Both, 2 times a day, # 16 Gm, 0 Refills, Maintenance, 08/09/22 17:35:00 EST, [place], [id number], This is NOT a routine chronic medication, 1 sprays Nares, Both 2 times a day, 166.9, cm, 08/09/22 13:41:00 EST, Height, 63,... Start Date: 08/09/22 Status: Ordered Synthroid 0.15 mg oral tablet 1 tablet, By Mouth, Daily, # 30 tablet, 6 Refills, Maintenance, 03/19/23 9:51:00 EDT, [id number], 168, cm, 11/30/22 9:48:00 EDT, Height, 65.8, [...] Team Personnel Name: Stephen Kay MD Position: [facility] Physician - Primary Care Member Role: PCP Address: Address: [address] [place] [address] Adult & [place] [address]- Care Team Related Persons Name: QUEENIE CARRANZA Address: home [address] [place] [address] Name: TYRONE CARRANZA Address: home [address] [place] [address]
--- OUTSIDE RECORDS SUMMARY | 2024-04-23 20:25 | XMS_ITS | Continuity of Care Document ---
Author Organization [facility] Address [address] [place] [address]- Care Team Providers Care Human Resources Trainer Name Role Phone Eliza MCDUFFIE, Stephen Cao Primary Care Physician Encounter [facility] Date(s): 10/18/23 - 11/17/23 [facility] [address] [place], [place] [address] Allergies, Adverse Reactions, Alerts Substance Reaction [...] each, 0 Refills, Maintenance, 08/22/23 18:12:00 EST, [id number], 25, INHALE 2 PUFFS INTO LUNGS EVERY 6 HOURS NEEDED FOR WHEEZING/SHORTN... Start Date: 08/22/23 Status: Ordered atorvastatin 20 mg oral tablet 1 tablet = 20 mg, By Mouth, Daily, # 90 tablet, 3 Refills, Maintenance, 08/22/23 18:12:00 EST, Tablet, [facility]/pharmacy #[id number], Partial fill upon patient request if the prescription is for a schedule II opioid drug., 168, cm, 07/24/23 9:56:00 EST, Height,... Start Date: 08/22/23 Status: Ordered clobetasol 0.05% topical ointment See Instructions, APPLY 1 APPLICATION TOPICALLY EVERY SATURDAY AND SATURDAY, APPLY A THIN FILM USE TWICE WEEKLY, # 60 Gm, 11 Refills, Maintenance, 11/15/23 10:53:00 EDT, [id number], 25, APPLY 1 APPLICATION TOPICALLY EVERY SATURDAY AND SATURDAY, APPLY... Start Date: 11/15/23 Status: Ordered Flonase 50 mcg/inh nasal spray 1 sprays, Nares, Both, 2 times a day, # 16 Gm, 0 Refills, Maintenance, 08/09/22 17:35:00 EST, [place], [facility]/pharmacy #2339, This is NOT a routine chronic medication, 1 sprays Nares, Both 2 times a day, 166.9, cm, 08/09/22 13:41:00 EST, Height, 63,... Start Date: 08/09/22 Status: Ordered ProAir HFA 90 mcg/inh inhalation aerosol with adapter 2, puffs, Inhalation, Every 6 hours, PRN, # 8.5 Gm, Refills 0, Tot. Refills 0, Maintenance, 05/30/23 14:04:00 EST, Aerosol, Route to Pharmacy Electronically, [id number], [facility]/pharmacy #[id number], 168, cm, 05/30/23 11:48:00 EST, [place]... Start Date: 05/30/23 Status: Ordered Synthroid 0.15 mg oral tablet See Instructions, 1 tablet from Saturday to Saturday and two tablets on Saturday, # 102 tablet, 4 Refills, Maintenance, 06/27/23 9:46:00 EST, [facility]/pharmacy #[id number], 168, cm, 06/25/23 10:11:00 EST, [...] Team Personnel Name: Stephen Kay MD Position: [facility] Physician - Primary Care Member Role: PCP Address: Address: [address] [place] [address] Adult & [place] [address]- Care Team Related Persons Name: QUEENIE CARRANZA Address: home [address] [place] [address] Name: TYRONE CARRANZA Address: home [address] [place] [address]
--- OUTSIDE RECORDS SUMMARY | 2024-04-23 20:25 | XMS_ITS | Continuity of Care Document ---
Author Organization [facility] MEMBERSHIP DIRECTOR Oncolog y Address [address] [place] [address]- Care Team Providers Care Middle School Teacher Name Role Phone Stephen Kay MD Primary Care Physician Encounter [facility] [place] Date(s): 08/24/21 - 09/23/21 [facility] MEMBERSHIP DIRECTOR Oncology [address] [place] [address] Allergies, Adverse Reactions, Alerts Substance [...] 0 Refills, Maintenance, 09/23/21 10:33:00 [place]Marisela, [id number], Partial fill upon patient request if the prescription is for a schedule II opioid drug., Topically 2 times a day, 167.64, cm... Start Date: 09/23/21 Status: Ordered ibuprofen 800 mg oral tablet 800 mg, 1, tablet, By Mouth, Every 8 hours, # 40 tablet, Refills 0, Tot. Refills 0, Maintenance, 08/11/21 15:50:00 EST, Route to Pharmacy Electronically, [facility]/pharmacy #[id number], Partial fill upon patientrequest if the prescription is for a schedule II op... Start Date: 08/11/21 Status: Ordered lidocaine 2% topical gel with applicator 5 mL = 0.1 Gm, Topically, Once, Apply 30 mins prior to scheduled vulvar procedure, # 10 mL, 0 Refills, Soft Stop, 09/06/21 10:36:00 EST, Gel, [facility]/pharmacy #[id number], Partial fill upon patient request if the prescription is for a schedule II opioid drug.,... Start Date: 09/06/21 Status: Ordered Lipitor 20 mg oral tablet 1 tablet = 20 mg, By Mouth, Daily, # 30 tablet, 11 Refills, Maintenance, 05/25/21 12:08:00 EST, Tablet, [facility]/pharmacy #2339, Partial fill upon patient request if [...] Maintenance, 07/06/21 13:28:00 EST, Tablet, [facility]/pharmacy #2339, duplicate rx. original sent 03/09/21. remaining r... Start Date: 07/06/21 Stop Date: 03/03/22 Status: Ordered Tylenol 325 mg oral capsule 2 capsule = 650 mg, By Mouth, Every 4 hours, PRN as needed for pain, # 50 tablet, 0 Refills, Maintenance, 08/11/21 15:51:00 EST, Capsule, [facility]/pharmacy #[id number], Partial fill upon patient request if [...]
--- OUTSIDE RECORDS SUMMARY | 2024-04-23 20:25 | XMS_ITS | Continuity of Care Document ---
Author Organization [facility] Address [address] [place] [address]- Care Team Providers Care Spar Cap Beveler Name Role Phone Stephen Kay MD Primary Care Physician [place] [facility] [place] 03/20/22 - 04/19/22 [facility] [address] [place] [address]- Allergies, Adverse Reactions, Alerts Substance Reaction Severity [...] 7 Refills, Maintenance, 03/20/22 10:37:00 EDT, Tablet, [facility]/pharmacy #[id number], duplicate rx. original sent 03/09... Start [...] Sex Patient Care team information Personnel Name: Eliza MCDUFFIE, Stephen Cao Address: Address: [address] [place] [address] Adult & Pediatric Medicine [address]
--- OUTSIDE RECORDS SUMMARY | 2024-04-23 20:25 | XMS_ITS | Continuity of Care Document ---
Author Organization [facility] Endocrinolo gy and Diabetes Address [address] [place] [address]- Care Team Providers Care Biomedical Scientist Name Role Phone Stephen Kay MD Primary Care Physician [phone] Encounter [facility] [place] Date(s): 01/28/23 - 03/15/23 [facility] Diabetes [address] [place] [address]- Attending Physician: Miya Mahoney MD Admitting Physician: Miya Mahoney MD Referring Physician: Stephen Kay MD Allergies, [...] 08/07/25 0:00:00 EST, 08/07/22 11:15:00 EST, Ointment, [facility]/pharmacy #[id number], Partial fill upon patient request if the prescription is for... Start Date: 08/07/22 Stop Date: 08/07/25 Status: Ordered Flonase 50 mcg/inh nasal spray 1 sprays, Nares, Both, 2 times a day, # 16 Gm, 0 Refills, Maintenance, 08/09/22 17:35:00 EST, [place], [id number], This is NOT a routine [...] Team Personnel Name: Stephen Kay MD Position: [facility] Physician - Primary Care Member Role: PCP Address: Address: [address] [place] [address] Adult [place] [address]- Care Team Related Persons Name: QUEENIE CARRANZA Address: home [address] [place] [address] Name: YTRONE CARRANZA Address: home [address] [place] [address]
--- OUTSIDE RECORDS SUMMARY | 2024-04-23 20:25 | XMS_ITS | Continuity of Care Document ---
Author Organization [facility] Address [address] [place] [address]- Care Team Providers Care Silverlight Developer Name Role Phone Stephen Kay MD Primary Care Physician [phone] Encounter [facility] Date(s): 07/24/23 - 07/31/23 [facility] [address] [place], [place] [address] Attending Physician: Stephen Kay MD [...] 08/07/25 0:00:00 EST, 08/07/22 11:15:00 EST, Ointment, [facility]/pharmacy #[id number], Partial fill upon patient request if the prescription is for... Start Date: 08/07/22 Stop Date: 08/07/25 Status: Ordered clobetasol 0.05% topical ointment 1 application, Topically, Every Saturday and , apply a thin film twice weekly in morning and evening,, # 60 Gm, 11 Refills, Acute 03/25/27 0:00:00 EDT, 08/07/25 0:00:00 EST, Ointment, [facility]/pharmacy #[id number], Partial fill upon patient request if the... Start Date: 08/07/25 Stop Date: 03/25/27 Status: Ordered Flonase 50 mcg/inh nasal spray 1 sprays, Nares, Both, 2 times a day, # 16 Gm, 0 Refills, Maintenance, 08/09/22 17:35:00 EST, [place], [facility]/pharmacy #[id number], This is NOT a routine chronic medication, 1 sprays Nares, Both 2 times a day, 166.9, cm, 08/09/22 13:41:00 EST, Height, 63,... Start Date: 08/09/22 Status: Ordered ProAir HFA 90 mcg/inh inhalation aerosol with adapter 2, puffs, Inhalation, Every 6 hours, PRN, # 8.5 Gm, Refills 0, Tot. Refills 0, Maintenance, 05/30/23 14:04:00 EST, Aerosol, Route to Pharmacy Electronically, [id number], [facility]pharmacy #[id number], 168, cm, 05/30/23 11:48:00 EST, Hei... Start Date: 05/30/23 Status: Ordered rosuvastatin 5 mg oral tablet 1 tablet = 5 mg, By Mouth, Daily, # 90 tablet, 3 Refills, Maintenance, 07/24/23 10:18:00 EST, Tablet, [facility]/pharmacy #[id number], Partial fill upon patient request if [...] oldest [Reference Range]: 1 Height 168 cm (07/24/23 9:56 AM) Weight 69.2 kg (07/24/23 9:56 AM) Oxygen Saturation [94-100 %] 93 % *L* (07/24/23 9:56 AM) Pulse Rate [55-90 bpm] 90 bpm (07/24/23 9:56 AM) Body Mass Index [18.5-24.99 kg/m2] 24.52 kg/m2 (07/24/23 9:56 AM) Blood Pressure [90-138/55-84 mm Hg] 110/ 56mm Hg (07/24/23 9:56 AM) Mode of Delivery (Oxygen) Room air (07/24/23 9:56 AM) Blood pressure sites Arm, left (07/24/23 9:56 AM) Social History Social History Type Response Smoking Status 10 or more cigarette s (1/2 pack or more)/day in last 30 days entered on: 06/25/23 Sex Note * Carolyn King: PERFORM, SIGN, VERIFY Event Display: Patient Education/Instruction Authored Date: [id number] [facility] *[facility] Clinical Summary Name AVEL BELLAMY Age 63 Years 1960 PCP Eliza MCDUFFIE, Stephen Cao PCP Visit Date 07/24/2023 09:48:00 Additional Instructions: Scheduled Appointments?? Future Appointments ?*[facility]IAZZI NITRATOR OPERATOR??Oncology ?[address] ?[place],??[place],??[address] ?Phone:??--?Fax:??-- ?Appt. Date:??09/23/2023?11:00 AM ?Scheduled Provider:??Iván MCDUFFIE, Anum Follow-Up Instructions ?? Diagnosis Atherosclerotic heart disease of grayling coronary artery without angina pectoris; Pure hypercholesterolemia, unspecified; Family history of ischemic heart disease and other diseases of the circulatorysystem Medications: Please continue your medications until treatment is completed or stopped by your provider. Discuss any questions related to medications with your provider. New Medications [id number], [address] [place] [id number], [phone] Rosuvastatin (rosuvastatin 5 mg oral tablet) 1 tab(s) Oral Daily. Refills: 3. Next Dose: Medications to Continue with No Changes These medications were not printed or sent to your pharmacy Acetaminophen (Tylenol 325 mg oral capsule) 2 capsule Oral every 4 hours as needed as needed for pain. Refills: 0. Next Dose: Albuterol (ProAir HFA 90 mcg/inh inhalation aerosol with adapter) 2 puff(s) Inhalation every 6 hours as needed Wheezing/Shortness of Breath. Refills: 0. Next Dose: Clobetasol Topical (clobetasol 0.05% topical ointment) 1 sharla Topically every Saturday and . apply a thin film use twice weekly. Refills: 11. Next Dose: Clobetasol Topical (clobetasol 0.05% topical ointment) 1 sharla Topically every Saturday and . apply a thin film twice weekly in morning and evening,. Refills: 11. Next Dose: Fluticasone Nasal (Flonase 50 mcg/inh nasal spray) 1 spray(s) Nares, Both twice a day. Refills: 0. Next Dose: Levothyroxine (Synthroid 0.15 mg oral tablet) 1 tablet from Saturday to Saturday and two tablets on Saturday. Refills: 4. Next Dose: Allergy Info:?? Sulfite Allergy; Sulfur Medications Given This Visit Medication Dose Route pneumococcal 20-valent conjugate vaccine (pneumococcal 20-valent vacc) 0.5 mL Intramuscular Future Orders ?AST? Order Date:07/24/23?- Complete on or after?07/24/23 ?Lipid Panel? Order Date:07/24/23?- Complete by?07/24/23 Vital Signs Height 168 cm Weight 69.2 kg BMI 24.52 kg/m2 Blood Pressure 110 mm Hg/56 mm Hg Temperature Pulse Rate 90 bpm Respiratory Rate 02 Sat Mode of Delivery 93 %/Room air You can now view a summary of your hospital visit from the comfort of your home through a free online portal called [employer] is a website that allows you to securely view your medical information including discharge summary, medications and follow-up visits. ??You can alsosend a secure electronic message to your doctor???s office to request appointments, renew medications or just ask a question. You can enroll at [email or web address] or register during your next office visit. [...] primary care provider, you may find a [facility] provider by calling [facility] [employer] Link at [phone]. [facility], in keeping with [facility] guidance, no longer requires face masks for staff, patientsor visitors in most situations. Similar to time spent indoors at other locations, there is the chance that you were exposed to respiratory viruses during your time with us (such as flu or COVID-19).? If you develop symptoms concerning for a viral respiratory infection, please seek testing (and treatment if indicated) from your medical provider or home test kit. For information about the plan of care including goals and instructions for your diagnosis, please see the patient education orders section of this document. Patient Education Materials?? The content of this educational material or handout may have been modified, supplemented, or adapted from its original content and format to support your individualized medical care. Patient Care team information Care Team Personnel Name: Stephen Kay MD Position: S Physician - Primary Care Member Role: PCP Address: Address: [address] [place] [address] Adult & [place] [address]- Care Team Related Persons Name: QUEENIE CARRANZA Address: home [address] [place] [address] Name: TYRONE CARRANZA Address: home [address] [place] [address]
--- OUTSIDE RECORDS SUMMARY | 2024-04-23 20:25 | XMS_ITS | Continuity of Care Document ---
Author Organization [facility][1] [facility] Address [address] [place] [address]- Care Team Providers Care Digital Retoucher Name Role Phone Stephen Kay MD Primary Care Physician [phone] [place] [facility]22[place] - 01/14/21 [facility][1] [facility] [address] [place], [place] [address] Attending Physician: Stephen Kay MD [...] Gm, 0 Refills, Maintenance, 02/20/18 9:42:10 EDT, [place],1 sprays Nares, Both 2 times a day [...] 11 Refills, Maintenance, 03/10/21 12:39:00 EDT, Tablet, [facility]acy #[id number], 168.5, cm, 10/02/18 13:14:00 EDT, Height Start Date: 03/10/21 Stop Date: 03/05/22 Status: Ordered Synthroid 137 mcg (0.137 mg) oral tablet 1 tablet = 137 mcg, By Mouth, Daily, for 90 days, take an 2 tablets on Sundays; NO SUBSTITUTIONS; BRAND NAME MEDICALLY NECESSARY, # 110 tablet, 3 Refills, Hard Stop 03/10/21 12:39:00 EDT, 03/15/20 12:39:00 EDT, Tablet, [facility] #[id number], 168.5, cm, 0... Start Date: 03/15/20 [...]
--- OUTSIDE RECORDS SUMMARY | 2024-04-23 20:25 | XMS_ITS | Continuity of Care Document ---
Author Organization [facility] ter Address [address] [place] [address]- Care Team Providers Care Stringer Machine Tender Name Role Phone Stephen Kay MD Primary Care Physician [phone] [facility] Date(s): 08/11/21 - 08/11/[address] [address]- Discharge Disposition: A-D/C Home Attending Physician: Anum Minor MD Admitting Physician: [...] 15:50:00 EST, [id number] Partial fill upon patientrequest if the prescription is for a schedule II op... Start Date: 08/11/21 Status: Ordered Lipitor 20 mg oral tablet 1 tablet = 20 mg, By Mouth, Daily, # 30 tablet, 11 Refills, Maintenance, 05/25/21 12:08:00 EST, Tablet, [facility]/pharmacy #[id number], Partial fill upon patient request if the prescription is for a schedule II opioid drug., 168.5, cm, 05/25/21 11:36:00 EST, Height Start Date: 05/25/21 Status: Ordered MiraLax oral powder for reconstitution = 17 Gm, By Mouth, Daily, dissolve in water before taking, # 255 Gm, 0 Refills, Maintenance, 08/11/21 15:51:00 EST, REC Powder, [facility]/pharmacy #[id number], Partial fill upon patient [...] 0 Refills, Maintenance, 08/11/21 15:51:00 EST, Capsule, [facility]/pharmacy #[id number], Partial fill upon patient request if the prescription is for a schedule II opioid drug., 167.64... Start Date: 08/11/21 Status: Ordered Synthroid 137 mcg (0.137 mg) oral tablet 1 tablet = 137 mcg, By Mouth, Daily, take an 2 tablets on Sundays; NO SUBSTITUTIONS; BRAND NAME MEDICALLY NECESSARY, # 35 each, 7 Refills, Maintenance, 07/06/21 13:28:00 EST, Tablet, [facility]/pharmacy #[id number], duplicate rx. original sent 03/09/21. remaining r... Start Date: 07/06/21 Stop Date: 03/03/22 Status: Ordered Tylenol 325 mg oral capsule 2 capsule = 650 mg, By Mouth, Every 4 hours, PRN as needed for pain, # 50 tablet, 0 Refills, Maintenance, 08/11/21 15:51:00 EST, Capsule, [facility]/pharmacy #[id number], Partial fill upon patient request if the [...] Procedure Date Related Diagnosis Body Site Status Vulvectomy, radical, partial; left 08/11/21 Completed Vital Signs Most recent to oldest [Reference Range]: 1 2 3 Height 167.64 cm (08/11/21 1:39 PM) 167.64 cm (08/10/21 10:16 AM) Weight 65.9 kg (08/11/21 1:39 PM) 68.18 kg (08/10/21 10:16 AM) Oxygen Saturation [94-100 %] 97 % (08/11/21 4:30 PM) 97 % (08/11/21 4:15 PM) 100 % (08/11/21 4:00 PM) Pulse Rate [55-90 bpm] 66 bpm (08/11/21 1:39 PM) Body Mass Index [18.5-24.99] 23.45 (08/11/21 1:39 PM) 24.26 (08/10/21 10:16 AM) Blood Pressure [90-138/55-84 mm Hg] 103/56mm Hg (08/11/21 4:30 PM) 121/63mm Hg (08/11/21 4:15 PM) 114/72mm Hg (08/11/21 4:00 PM) Respiratory Rate [16-30 br/min] 16 br/min (08/11/21 4:30 PM) 21 br/min (08/11/21 4:15 PM) 19 br/min (08/11/21 4:00 PM) Temperature [96.8-100.4 DegF] 98.9 DegF (08/11/21 4:15 PM) 98.4 DegF (08/11/21 3:45 PM) 98.5 DegF (08/11/21 1:39 PM) Liters per Minute 4 L/min (08/11/21 4:00 PM) 4 L/min (08/11/21 3:45 PM) Mode of Delivery (Oxygen) Room air (08/11/21 4:45 PM) Room air (08/11/21 4:30 PM) Room air (08/11/21 4:15 PM) Blood pressure sites Arm, right (08/11/21 4:30 PM) Arm, right (08/11/21 4:15 PM) Arm, right (08/11/21 4:00 PM) Temperature Route Temporal (08/11/21 3:45 PM) Temporal (08/11/21 1:39 PM) Dry Weight 65.9 kg (08/11/21 1:39 PM) 68.18 kg (08/10/21 10:16 AM) Weight Obtained Via Standing scale (08/11/21 1:39 PM) Patient/family stated (08/10/21 10:16 AM) Dry Weight Obtained Via Standing scale (08/11/21 1:39 PM) Patient/family stated (08/10/21 10:16 AM) Social History Social History Type Response Smoking Status Former smoker, quit more than 30 days ago; Other: Started age 14. Smoked for 42 years. Quit around 05/2021; entered on: 07/27/21 Sex
--- OUTSIDE RECORDS SUMMARY | 2024-04-23 20:26 | XMS_ITS | Continuity of Care Document ---
Author Organization [facility] ter Address [address] [place] [address]- Care Team Providers Care Aircraft Engine Mechanic Supervisor Name Role Phone Stephen Kay MD Primary Care Physician Encounter [facility] Date(s): 11/23/22 - 11/23/[address] [address]- Encounter Diagnosis TIA (transient ischemic attack)(Final) - 11/23/22 Discharge Disposition: A-D/C Home Attending Physician: Erasmo Barnes MD Admitting Physician: Erasmo Barnes MD Referring Physician: Not on Staff, Referring [...] 11/22/22 17:09:00 EDT, Route to Pharmacy Electronically, [facility]/pharmacy #[id number], Partial fill upon patient request [...] 08/07/25 0:00:00 EST, 08/07/22 11:15:00 EST, Ointment, [facility]/pharmacy #[id number], Partial fill upon patient request if the prescription is for... Start Date: 08/07/22 Stop Date: 08/07/25 Status: Ordered Flonase 50 mcg/inh nasal spray 1 sprays, Nares, Both, 2 times a day, # 16 Gm, 0 Refills, Maintenance, 08/09/22 17:35:00 EST, [place], [facility]/pharmacy #[id number], This is NOT a routine chronic medication, 1 sprays Nares, Both 2 times a day, 166.9, cm, 08/09/22 13:41:00 EST, Height, 63,... Start Date: 08/09/22 Status: Ordered Plavix 75 mg oral tablet 75 mg, 1, tablet, By Mouth, Daily, # 30 tablet, Refills 0, Tot. Refills 0, Maintenance, 11/22/22 17:09:00 EDT, Route to Pharmacy Electronically, [id number], Partial fill upon patient request [...] 6 Refills, Maintenance, 12/25/22 12:32:00 EDT, Tablet, [facility]/pharmacy #[id number], Partial fill upon patient request if theprescription is for a schedule II opioid drug., 167... Start Date: 12/25/22 Stop Date: 07/23/23 Status: Ordered Tylenol 325 mg oral capsule 2 capsule = 650 mg, By Mouth, Every 4 hours, PRN as needed for pain, # 50 tablet, 0 Refills, Maintenance, 08/11/21 15:51:00 EST, Capsule, [facility]/pharmacy #[id number], Partial fill upon patient request [...] recent to oldest [Reference Range]: 1 2 Height 168 cm (11/23/22 12:48 PM) Weight 65.8 kg (11/23/22 12:48 PM) Oxygen Saturation [94-100 %] 100 % (11/23/22 12:48 PM) 100 % (11/23/22 12:39 PM) Pulse Rate [55-90 bpm] 71 bpm (11/23/22 12:48 PM) 88 bpm (11/23/22 12:39 PM) Blood Pressure [90-138/55-84 mm Hg] 118/ 73mm Hg (11/23/22 12:48 PM) Respiratory Rate [16-30 br/min] 16 br/mi n (11/23/22 12:48 PM) Temperature [96.8-100.4 DegF] 97.9 DegF (11/23/22 12:48 PM) Mode of Delivery (Oxygen) Room air (11/23/22 12:48 PM) Room air (11/23/22 12:39 PM) Blood pressure sites Arm, right (11/23/22 12:48 PM) Temperature Route Oral (11/23/22 12:48 PM) Dry Weight 65.8 kg (11/23/22 12:48 PM) Social History Social History Type Response Smoking Status Former smoker, quit more than 30 days ago; Other: Started age 14. Smoked for 42 years. Quit around 05/2021 still smoking 2021; entered on: 11/24/21 Sex Note * Patrice MCDUFFIE, Na Cooley: PERFORM Event Display: Patient Education Leaflets Authored Date: [id number] Transient Ischemic Attack (TIA) Outpatient Instructions ?? 559 Transient Ischemic Attack (TIA) Outpatient Instructions ? You were seen in the Emergency Department today for evaluation of your neurologic symptoms. Because your symptoms got better, you may have had a TIA. ?? We performed a physical exam, monitored your vital signs and neurologic status, obtained lab work, and completed imaging of your brain. Your test results have been shared with you. A lipid panel and Hemoglobin A1C were collected and will be reviewed with you at the time of your follow up stroke clinic appointment. ? You will receive a call from the stroke clinic within the next few days to arrange an appointment with a vascular neurologist. If you do not receive a call from our stroke clinic, please contact [phone] and tell them you need an ???urgent TIA appointment.? During the stroke clinic appointment you will be evaluated by a vascular neurologist.?? He/she willreview the results of your lipid panel and HbA1c with you. They may recommend that you have furthertesting such as an MRI. ?? Please call your primary care physician and arrange to meet with them to make sure that you are otherwise doing well, and your other medical conditions (if any) are being managed appropriately. ?? MEDICATIONS (what you need to take) : If not contraindicated, you were given a prescription for Aspirin 81mg (if you are not already taking) and Clopidogrel 75mg. These are both to be taken once daily. ?? Discharge Instructions for Transient Ischemic Attack (TIA) What Is??a TIA? A TIA (transient ischemic attack) is an early warning that a stroke (also called a brain attack) iscoming. A TIA is a temporary stroke. It causes no lasting damage. But the effects of a stroke, if it happens, can be very serious and lasting. If you think you are having symptoms of a TIA or stroke???even if they don???t last???get medical help right away. TIA is also known as a mini-stroke. Bloodcould not reach part of your brain for a short period of time. Unlike a stroke, a TIA does not usually cause lasting damage. If you think you are having symptoms of a TIA or stroke,??get medical helpright away. Do this even if your symptoms go away.? Symptoms of TIA and stroke Symptoms may come on suddenly and last for a few seconds or a few hours. You may have symptoms onlyonce. Or they may come and go for days. If you notice any of the following symptoms, don???t wait. Call??911??or emergency services right away. ??? Weakness, numbness, tingling, or loss of feeling in your face, arm, or leg ??? Trouble seeing in one or both eyes; double vision ??? Slurred speech, trouble talking, or problems understanding others when they speak ??? Sudden, severe headache ??? Dizziness or a feeling of spinning ??? Loss of balance or falling ??? Blackouts F.A.S.T. ??is an easy way to remember the signs of a stroke. When you see the signs, you will know what you need to call??911??fast.?? F.A.S.T. stands for:? F ??is for face drooping. One side of the face is drooping or numb. When the person smiles, thesmile is uneven. ??? A?? is for arm weakness. One arm is weak or numb. When the person lifts both arms and the same time, one arm may drift downward. ??? S?? is for speech difficulty. You may notice slurred speech or trouble speaking. The person can't repeat a simple sentence correctly when asked. ??? T?? is for time to call??911. If someone shows any of these symptoms, even if they go away, call??911??right away. Make note of the time the symptoms first appeared. Prevention ??? Take your medicines exactly as directed. Don???t skip doses. ??? Learn to take your blood pressure. Write down the numbers and tell your healthcare provider. ??? Learn your cholesterol level. Follow your doctor???s advice about how to keep cholesterol under control. Make these lifestyle changes: ??? Quit smoking.?? Join a stop-smoking program to improve your chances of success. Ask your healthcare provider about medicines or other methods to help you quit. ??? Limit your alcohol.?? Don't have more than 2 drinks a day if you're a man and no more than 1 drink a day if you're a woman. ??? Keep a healthy weight.?? Get help to lose any extra pounds (kilograms). If you are overweight, your healthcare provider will work with you to lose weight and lower your body mass index (BMI) to a normal or near-normal level. Making diet changes and increasing physical activity can help. ??? Start an exercise program.?? Ask your healthcare provider how to get started and how much activity you should try to get on a daily or weekly basis. You can benefit from simple activities such as walking or gardening. ??? Learn ways to manage your stress. ??There are many methods to manage stress. These can help you deal with stress in your home and work life. You may also need to change what you eat. Your healthcare provider may refer you to a registered dietitian for help with diet changes. These changes may include: ??? Eating less fat and cholesterol ??? Having less salt (sodium), especially if you have high blood pressure ??? Eating more fresh vegetables and fruits ??? Eating lean proteins, such as fish, poultry, and legumes (beans and peas) ??? Eating less red meat and processed meats ??? Choosing low-fat dairy products ??? Using vegetable and nut oils in small amounts ??? Limiting sweet and processed foods such as chips, cookies, and baked goods To cut back on sodium: ??? Limit the amount of canned, dried, packaged, and fast foods you eat. ??? Don???t add salt to your food. ??? Season foods with herbs instead of salt when you cook. Call??911 Call??911??right away if you have any of these: ??? Weakness, tingling, or loss of feeling on 1 side of your face or body ??? Sudden double vision,or trouble seeing in 1 or both eyes ??? Sudden trouble talking, or slurring your speech ??? Troubleunderstanding other people speaking ??? Sudden, severe headache ??? Dizziness, loss of balance, a spinning feeling, or a sense of falling ??? Blackouts ??? Seizures ? Patient Care team information Care Team Personnel Name: Stephen Kay MD Position: [facility] Primary Care Physician Member Role: PCP Address: Address: [address] [place] [address] Adult & Pediatric Medicine [address] Name: Erasmo Barnes MD Position: [facility] ED Medicine MD Member Role: Admitting Physician Address: Address: [address] [place] [address] Name: Na Ibrahim MD Position: [facility] Resident Member Role: Chart Review Address: Address: [address] [place] [address] Emergency Medicine [address] Name: Rubi Villalobos RN Position: [facility] ED RN W/OE and Tasks Member Role: Patient Care Provider Name: Junie Martinez Position: [facility] ED TA [facility] Member Role: Geophysical Data Technician Care Team Related Persons Name: QUEENIE CARRANZA Address: home [address] [place] [address] Name: TYRONE CARRANZA Address: home [address] [place] [address]
--- OUTSIDE RECORDS SUMMARY | 2024-04-23 20:26 | XMS_ITS | Continuity of Care Document ---
Author Organization [facility] ed[facility] Address [address] [place] [address]- Care Team Providers Care Musical Engineer Name Role Phone Eliza MCDUFFIE, Stephen Cao Primary Care Physician Encounter [facility] Date(s): 04/16/23 - 05/16/23 [facility] [address] [place] [id number] Allergies, Adverse Reactions, Alerts Substance [...] 08/07/25 0:00:00 EST, 08/07/22 11:15:00 EST, Ointment, [facility]/pharmacy #[id number], Partial fill upon patient request if the prescription is for... Start Date: 08/07/22 Stop Date: 08/07/25 Status: Ordered clobetasol 0.05% topical ointment 1 application, Topically, Every Saturday and , apply a thin film twice weekly in morning and evening,, # 60 Gm, 11 Refills, Acute 03/25/27 0:00:00 EDT, 08/07/25 0:00:00 EST, Ointment, [facility]/pharmacy #[id number], Partial fill upon patient request if the... Start Date: 08/07/25 Stop Date: 03/25/27 Status: Ordered Flonase 50 mcg/inh nasal spray 1 sprays, Nares, Both, 2 times a day, # 16 Gm, 0 Refills, Maintenance, 08/09/22 17:35:00 EST, [place], [facility]/pharmacy #[id number], This is NOT a routine chronic medication, 1 sprays Nares, Both 2 times a day, 166.9, cm, 08/09/22 13:41:00 EST, Height, 63,... Start Date: 08/09/22 Status: Ordered Synthroid 0.15 mg oral tablet 1 tablet, By Mouth, Daily, # 30 tablet, 6 Refills, Maintenance, 03/19/23 9:51:00 EDT, [facility] STORE [id number], 168, cm, 11/30/22 9:48:00 EDT, Height, 65.8, [...] Name: Stephen Kay MD Position: [facility] Physician - Primary Care Member Role: PCP Address: Address: [address] [place] [address] Adult & [place] [address]- Care Team Related Persons Name: QUEENIE CARRANZA Address: home [address] [place] [address] Name: TYRONE CARRANZA Address: home [address] [place] [id number]
--- OUTSIDE RECORDS SUMMARY | 2024-04-23 20:26 | XMS_ITS | Continuity of Care Document ---
Author Organization [facility] Address [address] [place] [address]- Care Team Providers Care Daylight Driller Name Role Phone Stephen Kay MD Primary Care Physician [place] [facility] [place] - 11/30/[address] [address]- Encounter Diagnosis Floaters(Final) - 11/30/21 Discharge Disposition: A-D/C Home Attending Physician: Enrike Clark MD Admitting Physician: Enrike Clark MD Referring Physician: Not on Staff, Referring [...] to oldest [Reference Range]: 1 2 3 Oxygen Saturation [94-100 %] 98 % (11/30/21 4:33 PM) 99 % (11/30/21 3:29 PM) 99 % (11/30/21 2:38 PM) Pulse Rate [55-90 bpm] 75 bpm (11/30/21 4:33 PM) 70 bpm (11/30/21 3:29 PM) 77 bpm (11/30/21 2:38 PM) Blood Pressure [90-138/55-84 mm Hg] 99/79mm Hg (11/30/21 4:33 PM) 103/65mm Hg (11/30/21 3:29 PM) 121/68mm Hg (11/30/21 2:38 PM) Respiratory Rate [16-30 br/min] 16 br/min (11/30/21 2:38 PM) Temperature [96.8-100.4 DegF] 98.7 DegF (11/30/21 4:33 PM) 98.7 DegF (11/30/21 3:29 PM) 98.4 DegF (11/30/21 2:38 PM) Mode of Delivery (Oxygen) Room air (11/30/21 4:33 PM) Room air (11/30/21 3:29 PM) Room air (11/30/21 2:38 PM) Blood pressure sites Arm, right (11/30/21 4:33 PM) Arm, right (11/30/21 3:29 PM) Arm, left (11/30/21 2:38 PM) Temperature Route Temporal (11/30/21 4:33 PM) Oral (11/30/21 3:29 PM) Oral (11/30/21 2:38 PM) Social History Social History Type Response Smoking Status Former smoker, quit more than 30 days ago; Other: Started age 14. Smoked for 42 years. Quit around 05/2021 still smoking 2021; entered on: 11/24/21 Sex
--- OUTSIDE RECORDS SUMMARY | 2024-04-23 20:26 | XMS_ITS | Continuity of Care Document ---
Author Organization [facility] Address [address] [place] [address]- Care Team Providers Care Weaving Teacher Name Role Phone Stephen Kay MD Primary Care Physician [place] [facility] [place] Date(s): 02/12/23 - 03/14/23 [facility] Diabetes [address] [place] [address]- Allergies, Adverse Reactions, Alerts Substance Reaction Severity [...] Gm, 0 Refills, Maintenance, 08/09/22 17:35:00 EST, [place], [facility]/pharmacy #[id number], This is NOT a routine [...] Primary Care Member Role: PCP Address: Address: [address] [place] [address] Adult & Pediatric Medicine [place], [place] [address] Care Team Related Persons Name: QUEENIE CARRANZA Address: home [address] [place] [address] Name: TYRONE CARRANZA Address: home [address] [place] [address]
--- OUTSIDE RECORDS SUMMARY | 2024-04-23 20:26 | XMS_ITS | Continuity of Care Document ---
Author Organization [facility] Address [address] [place] [address]- Care Team Providers Care Business Line Controller Name Role Phone Stephen Kay MD Primary Care Physician Encounter [facility] Date(s): 07/31/22 - 07/31/[address] [address]- Discharge Disposition: A-D/C Home Attending Physician: Adam Gage MD Admitting Physician: Adam Gage MD Referring Physician: Not on Staff, Referring [...] 2Result Comment: [12/27/2016] given without incident.....vs Medications Augmentin 875 mg-125 mg oral tablet 1 tablet, By Mouth, Every 12 hours, for 7 days, # 14 tablet, 0 Refills, Acute 08/07/22 15:30:00 EST, 07/31/22 15:30:00 EST, [place], [facility]/pharmacy #[id number], Partial fill upon patient request if the prescription is for a schedule II opioid drug., 168, cm, 0... Start Date: 07/31/22 Stop Date: 08/07/22 Status: Ordered Synthroid 0.15 mg oral tablet [...] Exam Date Time Procedure Performing Provider Status 07/31/22 1:33 PM Chest 2 Views Frontal and Lat Iris Tran; Jim (Verified) Notes: (Chest 2 Views Frontal and Lat) Reason For Exam: Cough RESULT: Chest 2 Views Frontal and Lat Chest 2 Views Frontal and Lat Hx of Present Illness: Pt states she was dx with PNA, sent home on PO antibxs just finished yesterday. Was feeling better but now having pain in posterior chest where her PNA was again, also c o right ear pain.; Reason: Cough; Clinical Question(s): Pneumonia COMPARISON: 04/22/2023 and 06/15/2021. FINDINGS: LINES AND TUBES: None. LUNGS AND PLEURA: Marked improvement in right upper lung airspace opacity with residual major fissure thickening which may represent atelectasis or consolidation. No pleural effusion. No pneumothorax. HEART, MEDIASTINUM AND ANGÉLICA: Heart is normal in size. Normal mediastinal and hilar contour. BONES AND SOFT TISSUES: No acute abnormality. IMPRESSION: Marked improvement in right upper lung airspace opacity. No new consolidations. I have personally reviewed the images and I agree with this report. WSN: [id number] Ordering Physician: Gama Live Dictated By: Celine Salcido MD Dictated Date/Time: 07/31/22 1:42 pm Reviewed By: Sonu Torres MD Signed By: Sonu Torres MD Signed Date/Time: 07/31/22 1:47 pm Transcribed By: DELMER Transcribed Date/Time: 07/31/22 1:39 pm Vital Signs Most recent to oldest [Reference Range]: 1 2 Height 168 cm (07/31/22 1:14 PM) 168 cm (07/31/22 12:21 PM) Weight 63 kg (07/31/22 1:14 PM) 63 kg (07/31/22 12:21 PM) Oxygen Saturation [94-100 %] 96 % (07/31/22 12:21 PM) Pulse Rate [55-90 bpm] 86 bpm (07/31/22 12:21 PM) Body Mass Index [18.5-24.99 kg/m2] 22.32 kg/m2 (07/31/22 12:21 PM) Blood Pressure [90-138/55-84 mm Hg] 109/ 67mm Hg (07/31/22 12:21 PM) Respiratory Rate [16-30 br/min] 19 br/mi n (07/31/22 12:21 PM) Temperature [96.8-100.4 DegF] 98.0 DegF (07/31/22 12:21 PM) Mode of Delivery (Oxygen) Room air (07/31/22 12:21 PM) Temperature Route Oral (07/31/22 12:21 PM) Dry Weight 63 kg (07/31/22 1:14 PM) 63 kg (07/31/22 12:21 PM) Social History Social History Type Response Smoking Status Former smoker, quit more than 30 days ago; Other: Started age 14. Smoked for 42 years. Quit around 05/2021 still smoking 2021; entered on: 11/24/21 Sex Note * Too MCDUFFIE, Adam Cardenas: PERFORM Event Display: Patient Education Leaflets Authored Date: [id number] Middle Ear Infection (Adult) ?? [id number] Middle Ear Infection (Adult) You have an infection of the middle ear, the space behind the eardrum. This is also called acute otitis media (AOM). Sometimes it's caused by the common cold. This is because congestion can block theinternal passage (eustachian tube) that drains fluid from the middle ear. When the middle ear fillswith fluid, bacteria can grow there and cause an infection. Oral antibiotics are used to treat this illness, not eardrops. Symptoms often start to improve within 1 to 2 days of treatment. Home care Here are some general care guidelines: ??? Finish all of the antibiotic medicine given, even thoughyou may feel better after the first few days. ??? You may use yqap-spt-eegqjnf medicine, such as acetaminophen or ibuprofen, to control pain and fever unless something else was prescribed. Talk with your healthcare provider before using these medicines if you have chronic liver or kidney disease. Also talk with your provider if you've had a stomach ulcer or digestive tract bleeding. Don't give aspirin to anyone under 18 years of age who is ill or has a fever. It may cause a severe illness called Guerita syndrome, which may result in brain or liver damage. If not treated correctly, it may cause . ?? Follow-up care Follow up with your healthcare provider as advised. If all symptoms haven't gotten better, or if hearing doesn't go back to normal in 2 weeks, you may need further treatment. ?? When to get medical advice Call your healthcare provider right away if any of these occur: ??? Ear pain gets worse or doesn't improve after 3 days of treatment ??? Abnormal drowsiness or confusion ??? Neck pain, stiff neck, orheadache ??? Fluid or blood draining from the ear canal ??? Fever of 100.4??F (38??C) or higher, oras advised? Seizure ?? Last Reviewed Date: 2021 ?? 9015-2515 [employer]. All rights reserved. This information is not intended as a substitute for professional medical care. Always follow your healthcare professional's instructions. ?? * BHSPowerscribe , CIS S: TRANSCRIBE Sonu Torres MD: VERIFY Celine Salcido MD: SIGN Event Display: Result: Authored Date: [id number] Chest 2 Views Frontal and Lat Hx of Present Illness: Pt states she was dx with PNA, sent home on PO antibxs just finished yesterday. Was feeling better but now having pain in posterior chest where her PNA was again, also c o right ear pain.; Reason: Cough; Clinical Question(s): Pneumonia COMPARISON: 04/22/2023 and 06/15/2021. FINDINGS: LINES AND TUBES: None. LUNGS AND PLEURA: Marked improvement in right upper lung airspace opacity with residual major fissure thickening which may represent atelectasis or consolidation. No pleural effusion. No pneumothorax. HEART, MEDIASTINUM AND ANGÉLICA: Heart is normal in size. Normal mediastinal and hilar contour. BONES AND SOFT TISSUES: No acute abnormality. IMPRESSION: Marked improvement in right upper lung airspace opacity. No new consolidations. I have personally reviewed the images and I agree with this report. WSN: [id number] Ordering Physician: Gama Live Dictated By: Celine Salcido MD Dictated Date/Time: 07/31/22 1:42 pm Reviewed By: Sonu Torres MD Signed By: Soun Torres MD Signed Date/Time: 07/31/22 1:47 pm Transcribed By: DELMER Transcribed Date/Time: 07/31/22 1:39 pm Patient Care team information Care Team Personnel Name: Stephen Kay MD Position: [facility] Primary Care Physician Member Role: PCP Address: Address: [address] [place] [address] Adult [place] [address]- [place] Name: Tono Christianson RN Position: [facility] ED RN W/OE and Tasks Member Role: Patient Care Provider Name: Adam Gage MD Position: [facility] ED Medicine MD Member Role: Admitting Physician Address: Address: [address] [place] [address] [place] [address]- Name: Bethanie Khan Position: [facility] ED TA [facility] Name: Geo Jacobs Position: [facility] ED OA Care Team Related Persons Name: QUEENIE CARRANZA Address: home [address] [place] [address] Name: TYRONE CARRANZA Address: home [address] [place] [address]
--- OUTSIDE RECORDS SUMMARY | 2024-04-23 20:26 | XMS_ITS | Continuity of Care Document ---
Author Organization [facility] Address [address] [place] [address]- Care Team Providers Care House Calls Nurse Practitioner Name Role Phone Stephen Kay MD Primary Care Physician [place] [facility] [place] [facility] [address] [place], [place] [address] Allergies, Adverse Reactions, [...] 11/22/22 17:09:00 EDT, Route to Pharmacy Electronically, [facility]/pharmacy #[id number], Partial fill upon patient request if the [...] 08/07/25 0:00:00 EST, 08/07/22 11:15:00 EST, Ointment, [facility]/pharmacy #[id number], Partial fill upon patient request if the prescription is for... Start Date: 08/07/22 Stop Date: 08/07/25 Status: Ordered Flonase 50 mcg/inh nasal spray 1 sprays, Nares, Both, 2 times a day, # 16 Gm, 0 Refills, Maintenance, 08/09/22 17:35:00 EST, [place], [facility]/pharmacy #[id number], This is NOT a routine chronic medication, 1 sprays Nares, Both 2 times a day, 166.9, cm, 08/09/22 13:41:00 EST, Height, 63,... Start Date: 08/09/22 Status: Ordered Plavix 75 mg oral tablet 75 mg, 1, tablet, By Mouth, Daily, # 30 tablet, Refills 1, Tot. Refills 1, Maintenance, 11/30/22 10:44:00 EDT, Route to Pharmacy Electronically, [facility]/pharmacy [...] Team Personnel Name: Stephen Kay MD Position: [facility] Physician - Primary Care Member Role: PCP Address: Address: [address] [place] [address] Adult & [place] [address]- Care Team Related Persons Name: QUEENIE CARRANZA Address: home [address] [place] [address] Name: TYRONE CARRANZA Address: home [address] [place] [address]
== END 2024-04-23 20:28 | disposition home or self-care (01) ==
PROVIDERS: Registered Nurse Emergency; Emergency Provider Internal Medicine; PCP Internal Medicine
DX: N39.0 Urinary tract infection, site not specified (principal); R30.0 Dysuria; R39.15 Urgency of urination; R31.9 Hematuria, unspecified; R10.9 Unspecified abdominal pain; Z79.899 Other long term (current) drug therapy
CPT/HCPCS: 36415; 80053; 81001; 85025; 87086; 87088; 87186; 99283; 99284

== ENCOUNTER 2025-04-04 10:01 | Emergency (ER) | payer MEDICARE, SELFPAY ==
--- NOTE | ~2025-04-04 | XR_ITS ---
CLINICAL HISTORY: cough 2 view chest x-ray. Comparison: None Findings: Normal lung volumes. Lungs are clear. No pneumothorax or pleural effusion. Heart size normal. No passive venous congestion. No midline shift or tracheal deviation. No acute fracture. Impression: 1. No acute cardiopulmonary disease. This document has been electronically signed by: Fausto Cast MD on 04/04/2025 12:59:43
[2025-04-04 10:02] VITALS: BP 139/69; PULSE 90; RESP 18; TEMP 36.8; O2SAT 98; BMI 23.3
--- NOTE | 2025-04-04 11:09 | ED_ITS ---
HPI - General Adult General Chief complaint: General Medical Stated complaint: coughing up blood Time Seen by Provider: 04/04/25 11:04 Source: patient Mode of arrival: ambulatory Limitations: no limitations History of Present Illness ED Provider: Dr. Askew [facility] narrative: This is a 65-year-old female presented hospital today for 1 month of fatigue lightheadedness coughing and nasal congestion. Patient stated that she had an episode of hemoptysis earlier this morning when she woke up. However this has resolved. Patient has been in with her mother who has been sick in the hospital. 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 Patient stated that she normally get diagnosed with pneumonia. She denies any leg swelling any recent procedure recent long travels. She has no further episode of hemoptysis. Related Data Previous Rx's ?Medication ?Instructions ?Recorded cefuroxime axetil 250 mg tablet 250 mg PO BID #14 tabs 04/23/24 phenazopyridine 100 mg tablet 100 mg PO TID PRN pain 6 doses #6 04/23/24 tabs albuterol sulfate 90 mcg/actuation 2 puff inhalation Q 6H PRN 04/04/25 aerosol inhaler (Ventolin HFA) shortness of breath or wheezing #6.7 grams azithromycin 250 mg tablet See Rx Instructions PO .COM PLEX #6 04/04/25 tabs benzonatate 200 mg capsule 200 mg PO TID PRN cough #30 caps 04/04/25 prednisone 20 mg tablet 40 mg (2 x 20 mg) PO DAILY 5 days 04/04/25 #10 tabs Allergies Allergy/AdvReac Type Severity Reaction Status Date / Time Sulfa (Sulfonamide Allergy Severe ANAPHYLAXIS Verified 04/04/25 10:03 Antibiotics) (SULFA (SULFONAMIDE ANTIBIOTICS)) sulfite (SULFITE) Allergy Severe ANAPHYLAXIS Verified 04/04/25 10:03 Review of Systems 2 Review of Systems: Pertinent review of systems as mentioned in HPI. All other system otherwise negative. [facility] Past Medical History [facility] Narrative: Medical history as mentioned in [facility] Social History Social History Alcohol intake: never Advance Directives: No Advance Directives Information Provided: Yes Physical Exam ED Exam Exam: General: Pleasant, no distress, interacting appropriately Head: Normacephalic, atraumatic ENT: oral mucosa moist, neck supple, no tracheal deviation Cardiovascular: regular rate, regular rhythm, no murmurs, rubbing, gallops Respiratory: Diminished lung sounds bilaterally Neurological: Awake and alert, no facial droop noted Skin: Warm and dry Psychiatric: Appropriate mood and thoughts Vital Signs: Vital Signs - 24 hr 04/04/25 10:02 Temperature 98.2 F Pulse Rate 90 Respiratory Rate 18 Blood Pressure 139/69 Pulse Oximetry 98 Oxygen Delivery Method Room Air BMI result Body Mass Index 23.3 Medications Administered Discontinued Medications Generic Name Dose Route Start Last Admin Trade Name Jeremías PRN Reason Stop Dose Admin Acetaminophen 975 mg 04/04/25 11:32 04/04/25 11:40 Acetaminophen 325 Mg Tablet PO 04/04/25 11:33 975 mg ONCE ONE Administration Albuterol/Ipratropium 3 ml 04/04/25 11:30 04/04/25 11:40 Albuterol/Iprat 2.5/0.5mg 3 Ml Ampul.Neb INHALE 04/04/25 11:31 3 ml ONCE ONE Administration Azithromycin 500 mg 04/04/25 11:30 04/04/25 11:40 Azithromycin 500 Mg Tablet PO 04/04/25 11:31 500 mg ONCE ONE Administration Prednisone 40 mg 04/04/25 11:30 04/04/25 11:40 Prednisone 20 Mg Tablet PO 04/04/25 11:31 40 mg ONCE ONE Administration Medical Decision Making Medical Decision Making [facility] Narrative: This is a 65-year-old female history of Neville's, hyperlipidemia presented hospital today for evaluation of coughing an episode of hemoptysis. Suspect patient has hemoptysis may be secondary to the chronic coughing she has been having we will mucosa irritation. I do not think this is PE. She has no further active hemoptysis at this time. This was 1 episode in nature. She does have diminished lung sounds. We will plan to give patient DuoNeb treatment. A dose of prednisone, we will obtain a x-ray and basic lab for the patient. Tylenol will be given her headache as well. Patient stated her breathing has improved. Chest x-ray did not show any sign of pneumonia. Slight leukocytosis on lab work at 11. Patient does not appear to be toxic I do not think patient has sepsis. Patient will be discharged with an inhaler, prednisone course and a Z-Lawrence for her symptoms. We will have her follow up with her primary care doctor. Patient agrees and understands with plan Differential Diagnosis Differential Diagnoses: The differential diagnosis associated with the presentation includes Bronchitis, pneumonia, hemoptysis, PE Lab Data MDM Lab Attestation statement: I reviewed the patient's lab results. 04/04/25 11:36 04/04/25 11:36 Labs: Lab Results 04/04/25 Range/Units 11:36 WBC 11.2 H (4.8-10.8) X10*3/uL RBC 4.95 (4.20-5.50) X10*6/uL Hgb 15.1 (12.0-16.0) g/dl Hct 44.7 (37.0-47.0) % MCV 90.3 (80.0-98.0) fL MCH 30.5 (27.0-33.0) pg MCHC 33.8 (31.0-35.0) g/dl RDW 12.8 (11.0-16.0) % Plt Count 245 (160-400) X10*3/uL MPV 10.8 (9.4-12.3) fL Immature Gran % (Auto) 0.4 (0.0-0.4) % Neut % (Auto) 74.4 H (45-73) % Lymph % (Auto) 16.4 L (20-40) % [place] % (Auto) 6.2 (2-11) % Eos % (Auto) 2.0 (0-4) % Baso % (Auto) 0.6 (0-2) % Lymph # (Auto) 1.8 (1.2-4.9) X10*3/uL [place] # (Auto) 0.7 (0.1-1.2) X10*3/uL Eos # (Auto) 0.2 (0.0-0.4) X10*3/uL Baso # (Auto) 0.1 (0.0-0.2) X10*3/uL Abs Immat Gran (auto) 0.04 H (0.00-0.03) X10*3/uL Absolute Neuts (auto) 8.4 H (2.0-8.3) x10*3/uL Absolute Nucleated RBC 0.000 (0.0-0.012) X10*3/uL Nucleated RBC % (auto) 0.0 (0.0-0.2) /100WBC Sodium 142 (135-145) mmol/L Potassium 4.0 (3.3-5.1) mmol/L Chloride 109 H (96-108) mmol/L Carbon Dioxide 26 (22-29) mmol/L Anion Gap 11 L (12-20) BUN 12 (9-16) mg/dL Creatinine 0.80 (0.5-1.4) mg/dL Estim Creat Clear Calc 63.8 Estimated GFR > 60 Random Glucose 95 (60-115) mg/dL Calcium 8.7 (8.4-10.2) mg/dL Magnesium 2.7 H (1.6-2.6) mg/dL Total Bilirubin 0.4 (0.0-1.0) mg/dL AST 21 (5-31) U/L ALT 22 (0-31) U/L Alkaline Phosphatase 42 (39-117) U/L Total Protein 7.0 (6.5-8.0) g/dL Albumin 4.4 (3.5-5.0) g/dL COVID-19 (LYNSEY) Negative (Negative) COVID-19 Clin Com See Note Influenza Type A (KRISS) Negative (Negative) Influenza Type B (KRISS) Negative (Negative) Influenza A & B Note See Note Independent Interpretation I performed an independent interpretation of an: Plain X-Ray Radiology Impression Discussion of test interpretation with radiology: I have reviewed the radiologist's reading. Prescription Management I considered prescription management with: Antibiotic Discharge Plan Discharge Clinical Impression: Bronchitis Patient Disposition: Home, Self-Care Instructions: Acute Bronchitis (ED) Prescriptions: New azithromycin 250 mg tablet See Rx Instructions .ROUTE .COMPLEX Qty: 6 0RF Rx Instructions: For 250 mg dose pack: take 500 mg today (day 1), then 250 mg for 4 days (days 2-5) benzonatate 200 mg capsule 200 mg PO TID PRN (Reason: cough) Qty: 30 0RF prednisone 20 mg tablet 40 mg PO DAILY 5 Days Qty: 10 0RF albuterol sulfate [Ventolin HFA] 90 mcg/actuation HFA aerosol inhaler 2 puff inhalation Q6H PRN (Reason: shortness of breath or wheezing) Qty: 6.7 0RF No Action cefuroxime axetil 250 mg tablet 250 mg PO BID Qty: 14 0RF phenazopyridine 100 mg tablet 100 mg PO TID PRN (Reason: pain) Qty: 6 0RF Print Language: Singaporean
[2025-04-04] MEDS: Albuterol/Iprat 2.5/0.5MG 3 ML AMPUL.NEB INHALE (11:40)
[2025-04-04 11:41] LABS: MANUAL DIFF FLAG NO
[2025-04-04 11:44] LABS: Hematocrit 44.7 % (37.0-47.0); Hemoglobin 15.1 g/dl (12.0-16.0); Imm Gran Abs Auto 0.04 X10*3/uL (0.00-0.03); Imm Gran Pct Auto 0.4 % (0.0-0.4); Lymphocytes Absolute Auto 1.8 X10*3/uL (1.2-4.9); Mean Corpuscular HGB Conc 33.8 g/dl (31.0-35.0); Mean Corpuscular Hemoglobin 30.5 pg (27.0-33.0); Mean Corpuscular Volume 90.3 fL (80.0-98.0); NRBC Abs Auto 0.000 X10*3/uL (0.0-0.012); NRBC Pct Auto 0.0 /100WBC (0.0-0.2); Platelet Count 245 X10*3/uL (160-400); Red Blood Count 4.95 X10*6/uL (4.20-5.50); White Blood Count 11.2 X10*3/uL (4.8-10.8)
[2025-04-04 11:53] VITALS: RESP 18
[2025-04-04 12:00] LABS: Alanine Aminotransferase 22 U/L (0-31); Albumin Level 4.4 g/dL (3.5-5.0); Alkaline Phosphatase 42 U/L (39-117); Anion Gap 11 (12-20); Aspartate Amino Transferase 21 U/L (5-31); Blood Urea Nitrogen 12 mg/dL (9-16); Calcium 8.7 mg/dL (8.4-10.2); Carbon Dioxide 26 mmol/L (22-29); Chloride 109 mmol/L (96-108); Creatinine Clr Calc Pharmacy 63.8; Estimated Glomerular Filt Rate > 60; Magnesium 2.7 mg/dL (1.6-2.6); Potassium 4.0 mmol/L (3.3-5.1); Sodium 142 mmol/L (135-145); Total Protein 7.0 g/dL (6.5-8.0)
[2025-04-04 12:01] LABS: COVID-19 Test Negative (Negative); IDNOW Serial# 08D9AD1C
--- OUTSIDE RECORDS SUMMARY | 2025-04-04 12:03 | XMS_ITS | Clinical Summary ---
Author Organization [facility] Address [address] [address] Phone Care Team Providers Care Broke Worker Name Role Phone Stephen Kay MD Primary Care Provider Self-Referred, Patient Unavailable Unavailab le Allergies Active Allergy Reactions Criticality Noted Date Comments Sulfites Anaphylaxis,Hives,It sherry,Shortness Of Breath,Swelling,Throat Tightness High 05/04/1999 Medications multivitamins capsule Daily, 0 Refills, Maintenance, 07/27/21 14:48:00 EST, Partial fill upon patient request if the prescription is for a schedule II opioid drug. 2 Active acetaminophen (TYLENOL) 325 mg tablet TAKE 2 TABLETS BY MOUTH EVERY 4 HOURS NEEDED FOR PAIN 2 Active atorvastatin (LIPITOR) 20 MG tablet Take 20 mg by mouth daily. 2 Active ibuprofen (ADVIL,MOTRIN) 800 MG tablet Take 800 mg by mouth every 8 (eight) hours. 2 Active SYNTHROID 137 mcg tablet TAKE 1 TABLET BY MOUTH DAILY X30 DAYS, TAKE 2 TABLETS ON SUNDAYS NO SUBSTITUTIONS 2 Active lidocaine (XYLOCAINE) 2 % mucosal gel jelly Apply 0.1 g topically. 2 Active oxyCODONE 5 MG immediate release tablet Take 5 mg by mouth every 6 (six) hours as needed. 2 Active PURELAX 17 gram/dose powder TAKE 17 GM BY MOUTH DAILY. DISSOLVE IN WATER BEFORE TAKING 2 Active Active Problems Problem Noted Date Diagnosed Date Family history of malignant neoplasm of ovary in first degree relative 09/07/2021 Family history of coronary artery disease 2021 History of migraine 09/07/2021 Hypercholesterolemia 09/07/2021 Hypothyroidism 09/07/2021 Lesion of vulva 09/07/2021 Lichen sclerosus et atrophicus 09/07/2021 Malignant neoplasm of vulva 09/07/2021 Severe obesity 09/07/2021 Tobacco dependence syndrome 09/07/2021 Urologic disorder 09/07/2021 Squamous cell carcinoma of skin 09/07/2021 Uterine fibroid 09/07/2021 Dense breasts 09/07/2021 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 Not on elin e 11/10/2022 Are you concerned about learning? Not on file 11/10/2022 No 11/10/2022 No 11/10/2022 Digital Access Answer Date Recorded No 12/09/2022 No 12/09/2022 No 12/09/2022 Reliable internet access at home? Not on file 12/09/2022 Device with a working camera? Not on file Comments Unknown Sex and Gender Information Value Date Recorded Sex Assigned at Female 09/04/2021 1:36 PM EST Legal Sex Female 10:12 AM EST Gender Identity Female 09/04/2021 1:36 PM EST Sexual Orientation Straight 09/04/2021 1: 36 PM EST Last Filed Vital Signs Vital Sign Reading Time Taken Comments Blood Pressure 108/70 09/07/2021 1:07 PM EST Pulse 111 09/07/2021 1:07 PM EST Temperature 37 C (98.6 F) 09/07/2021 1:07 PM EST Respiratory Rate 18 09/07/2021 1:07 PM EST Oxygen Saturation 100% 09/07/2021 1:07 PM EST Inhaled Oxygen Concentration - - Weight 66.6 kg (146 lb 13.2 oz) 09/07/2021 1:07 PM EST Height 167 cm (5' 5.75 ) 09/07/2021 1:07 PM EST Body Mass Index 23.88 09/07/2021 1:07 PM EST Plan of Treatment Health Maintenance Due Date Last Done Comments LIPID PANEL 1958 TSH LEVEL 1958 DEPRESSION SCREENING 1970 SMOKING Hx and SMOKELESS TOBACCO SCREENING 1971 HEPATITIS C SCREENING 02/06/1976 PNEUMOCOCCAL VACCINES (50+ years) (1 of 2 - PCV) 1977 ZOSTER VACCINES (1 of 2) 1977 MAMMOGRAM 1998 COLOGUARD 2003 COLONOSCOPY 2003 COLORECTAL CANCER SCREENING 2003 FIT TEST 2003 FOBT 2003 SIGMOIDOSCOPY 2003 VIRTUAL COLONOSCOPY 2003 OSTEOPOROSIS SCREENING INITI AL (ONE-TIME) 2023 INFLUENZA VACCINE (#1) 2025 COVID-19 VACCINE (3 - 2024-2 6 season) 2025 02/27/2021, 01/28/2021 Adult Td,Tdap Booster 12/27/2026 12/27/2016 , 11/21/2014, 03/24/2008 RSV VACCINE (1 - 1-dose 75+ series) 2033 HEPATITIS A VACCINES Aged Out No long er eligible based on patient's age to complete this topic HIB VACCINES Aged Out No longer eligi ble based on patient's age to complete this topic MENINGOCOCCAL VACCINES (ACWY) Aged Out No longer eligible based on patient's age to complete this topic MENINGOCOCCAL VACCINES (B) Aged Out N o longer eligible based on patient's age to complete this topic Medical Devices Not on file Insurance [facility] Care Teams Broke Worker Relationship Specialty Start Date End Date Stephen Kay MD [address] [address] PCP - General Internal Medicine 08/24/21 Self-Referred, Patient 08/24/21 Additional Source Comments The information contained in this document represents components of the legal health record. It is not the complete legal health record.[facility]
[2025-04-04 12:23] LABS: IDNOW Serial# 08D9AD1C; Influenza B2 Negative (Negative)
[2025-04-04 13:38] VITALS: BP 0/0; PULSE 0; RESP 18; TEMP -17.7; TEMP 0; O2SAT 98
--- NOTE | 2025-04-04 13:39 | PC.NURSE ---
extensive conversation at DC about medications, smoking cessation, allergy medications and live stressors, pt verbalized strong agreement at time of DC
== END 2025-04-04 13:40 | disposition home or self-care (01) ==
PROVIDERS: Emergency Provider Student in an Organized Health Care Education/Training Program; PCP Internal Medicine
DX: J40 Bronchitis, not specified as acute or chronic (principal); R04.2 Hemoptysis; R42 Dizziness and giddiness; Z79.899 Other long term (current) drug therapy; Z11.52 Encounter for screening for COVID-19
CPT/HCPCS: 71046; 80053; 83735; 85025; 87502; 87635; 99284

== ENCOUNTER → 2025-04-04 10:07 | Outpatient (BNV) | payer MEDICARE, SELFPAY | PROVIDERS: Emergency Provider Student in an Organized Health Care Education/Training Program; PCP Internal Medicine; Visit Provider Radiology Diagnostic Radiology | DX: R05.9 Cough, unspecified (principal) | CPT/HCPCS: 71046 ==